=== PATIENT | female | born 1945 | race Caucasian/White ===

== ENCOUNTER → 2017-11-11 | Outpatient (CLI) | payer MEDICARE ==
[~2017-11-11] MED LIST: ALB18R INH; ASPI-1471 PO; AZI250 PO; BENZ-23 PO; BLAC20TA6 PO; CALC-649 PO; CETI-221 PO; CYAN25004 PO; CYCL10TA29 PO; DOXY-181 PO; FAMO-67 PO; GABA-549 PO; GUAI600T57 PO; HYDR-2966 PO; HYDR473S4 PO; IBU800 PO; LEVO-3 PO; LORA-629 PO; MULT-820 PO; ONDA8TAB94 PO; OXYC-865 PO; PEG4000S14 PO; PRAV20TA66 PO; [UNRECOGNIZED DRUG - CODE] PO; prednisone
--- NOTE | 2017-11-11 15:49 | RADIOLOGY IMAGING REPORT ---
[place] [facility] [place] NAME: Karin Stovall : 1945 MR: [id number] V: [id number] EXAM DATE: ORDERING PHYSICIAN: BISI RONQUILLO TECHNOLOGIST: Location: [facility] Patient: Karin Stovall : 1945 Visit/Account:[id number] Date of Sevice: 11/11/2017 EXAMINATION: CT Head without intravenous contrast HISTORY: Blurry vision. Headache. TECHNIQUE: Axial images were obtained from the skull base to the vertex without intravenous contrast . Sagittal and coronal reformatted images are also submitted. One of the following dose optimization techniques was utilized in the performance of this exam: Autom ated exposure control; adjustment of the mA and/or kV according to the patient's size; or use of an i terative reconstruction technique. Specific details can be referenced in the facility's radiology C T exam operational policy. COMPARISON: None. FINDINGS: Brain volume: Normal. Ventricles: Negative. Acute ischemic changes: None. Hemorrhage: None. Masses / edema: None. Garvin-white: Negative. White matter: Mild to moderate patchy hypodensity in the bilateral frontal white matter. Vessels: Negative. Extra-axial: Negative. Calvarium / skull base: Right TMJ arthritis. Otherwise negative. Visualized sinuses / orbits: Negative. IMPRESSION: 1. No acute intracranial abnormality. 2. Mild to moderate chronic white matter changes in the frontal lobes, nonspecific but most likely re presenting chronic microvascular ischemia. 3. Right TMJ arthritis. Report Dictated By: Jamel Robertson MD at 11/11/2017 3:38 PM Report E-Signed By: Jamel Robertson MD at 11/11/2017 3:45 PM WSN:[email or web address]
--- NOTE | 2017-11-11 16:03 | RADIOLOGY IMAGING REPORT ---
FACILITY: [facility] PATIENT NAME: Karin Stovall : 1945 MR: [id number] V: [id number] EXAM DATE: ORDERING PHYSICIAN: BISI RONQUILLO TECHNOLOGIST: Location: [facility] Patient: Karin Stovall : 1945 Visit/Account:[id number] Date of Sevice: 11/11/2017 Exam type: CERVICAL SPINE 2 OR 3 VIEW History: Neck pain, headache right side, and no injuries Comparison: None. Findings: There is mild disc space narrowing at C5-6 and C6-7 with small anterior osteophytes. There is no holli dence of acute fractures or subluxations in the cervical spine. No evidence of prevertebral soft tis harley swelling. IMPRESSION: 1. Mild spondylotic changes of the cervical spine. If patient's symptoms persist MR may be helpful Report Dictated By: Norma Chaudhary MD at 11/11/2017 3:57 PM Report E-Signed By: Norma Chaudhary MD at 11/11/2017 3:59 PM WSN:[email or web address]
== END ==
LOC: CT 10:38
PROVIDERS: ATTEND Family Medicine
DX: M47.892 Other spondylosis, cervical region (principal)
CPT/HCPCS: 70450; 72040

== ENCOUNTER → 2018-02-03 | Outpatient (CLI) | payer MEDICARE ==
--- NOTE | 2018-02-04 11:55 | RADIOLOGY IMAGING REPORT ---
FACILITY: [facility] [place] PATIENT NAME: HERMELINDO ROYAL : [id number] MR: [id number] V: [id number] EXAM DATE: [id number] ORDERING PHYSICIAN: BISI RONQUILLO TECHNOLOGIST: Tara Mojica RT(R)(CT) PROCEDURE:US LEFT BREAST COMPLETE COMPARISON:None. INDICATIONS:PALPABLE LEFT BREAST LUMP UPPER OUTER QUADRANT. A strong family history of breast cancer. FINDINGS: In the approximate 2 o'clock position Left breast 8cm from the nipple there is a heterogeneous solid mass with internal vascularity measuring approximately 1.7 x 1.6 x 2.2cm finding this concerning for malignancy an Ultrasound guided core biopsy is recommended. A small fatty replaced lymph node was incidentally noted in the Left axilla. DIAGNOSTIC CATEGORY 5--HIGHLY SUGGESTIVE OF MALIGNANCY. RECOMMENDATIONS: ULTRASOUND-GUIDED CORE BIOPSY: LEFT BREAST. IMPRESSION: BIRADS 5: Highly suggestive of malignancy. Ultrasound guided core biopsy of the solid heterogeneous mass 2 o'clock position of the Left breast recommended. Dictated by: Norma Chaudhary M.D. on 02/03/2018 at 16:10 Transcribed by: ROXANE on 02/04/2018 at 8:46 Approved by: Norma Chaudhary M.D. on 02/04/2018 at 11:54 [facility]
--- NOTE | 2018-02-04 11:55 | RADIOLOGY IMAGING REPORT ---
FACILITY: [facility] PATIENT NAME: HERMELINDO ROYAL : [id number] MR: [id number] V: [id number] EXAM DATE: [id number] ORDERING PHYSICIAN: BISI RONQUILLO TECHNOLOGIST: Hoda Rodriguez PROCEDURE:BILATERAL DIAGNOSTIC DIGITAL MAMMOGRAM WITH CAD ASSISTED INTERPRETATION & 3D TOMOSYNTHESIS COMPARISON:Prior mammograms 03/04/16, 02/25/16, 02/08/15. INDICATIONS:PALPABLE LEFT BREAST LUMP UPPER OUTER QUADRANT FINDINGS: There is predominant fatty replacement throughout the breasts. In the upper outer quadrant of the Left breast in the middle 1/3 there has been development of a dense lobular mass with irregular margins. Today's Left breast Ultrasound demonstrated a solid heterogeneous mass in the 2 o'clock position of the Left breast. Ultrasound guided core biopsy of this mass recommended. The remainder of the parenchymal pattern has remained stable throughout the breasts. DIAGNOSTIC CATEGORY 5--HIGHLY SUGGESTIVE OF MALIGNANCY. RECOMMENDATIONS: ULTRASOUND-GUIDED CORE BIOPSY: LEFT BREAST. IMPRESSION: BIRADS 5: Highly suggestive of malignancy. Ultrasound guided core biopsy of the solid heterogeneous mass 2 o'clock position Left breast recommended. These findings were discussed with the patient at the time of the examination. Dictated by: Norma Chaudhary M.D. on 02/03/2018 at 16:09 Transcribed by: ROXANE on 02/04/2018 at 8:39 Approved by: Norma Chaudhary M.D. on 02/04/2018 at 11:54 [facility]
== END ==
LOC: MAMO 01:17
PROVIDERS: ATTEND Family Medicine
DX: N63.21 Unspecified lump in the left breast, upper outer quadrant (principal)
CPT/HCPCS: 77062; 77066

== ENCOUNTER → 2018-02-08 | Outpatient (CLI) | payer MEDICARE ==
[2018-02-08 13:43] LABS: INR 0.98
--- NOTE | 2018-02-09 11:43 | RADIOLOGY IMAGING REPORT ---
[place] [facility] [place] NAME: HERMELINDO ROYAL : [id number] MR: [id number] V: [id number] EXAM DATE: ORDERING PHYSICIAN: BISI RONQUILLO TECHNOLOGIST: Tayla Davila RDMS(ABD,OBGYN,BR),RVT PROCEDURE: ULTRASOUND GUIDED BIOPSY LEFT BREAST COMPARISON: None. INDICATIONS: LEFT BREAST NEW MASS 2 O'CLOCK POSITION. FINDINGS: Informed consent was obtained. The patient's Left breast was prepped and draped in the usual sterile fashion. Local anesthesia was accomplished with 1% lidocaine. Utilizing sonographic guidance 3-12 gauge core biopsies were obtained through the solid irregular mass in the 2 o'clock position of the Left breast. The samples were placed in formalin and sent to the Laboratory for evaluation. The biopsy clip was placed in the biopsy site. The post biopsy mammogram did demonstrate the surgical clip to be within the dense mass in the 2 o'clock position of the Left breast. IMPRESSION: 1. Successful sonographically guided biopsy of the solid mass 2 o'clock position of the Left breast. Pathology results pending. Dictated by: Norma Chaudhary M.D. on 02/09/2018 at 8:35 Transcribed by: ROXANE on 02/09/2018 at 10:16 Approved by: Norma Chaudhary M.D. on 02/09/2018 at 11:42 [facility]
--- NOTE | 2018-02-09 11:43 | RADIOLOGY IMAGING REPORT ---
FACILITY: [facility] PATIENT NAME: HERMELINDO ROYAL : [id number] MR: [id number] V: [id number] EXAM DATE: ORDERING PHYSICIAN: BISI RONQUILLO TECHNOLOGIST: Tayla Davila RDMS(ABD,OBGYN,BR),RVT PROCEDURE: ULTRASOUND GUIDED BIOPSY LEFT BREAST COMPARISON: None. INDICATIONS: LEFT BREAST NEW MASS 2 O'CLOCK POSITION. FINDINGS: Informed consent was obtained. The patient's Left breast was prepped and draped in the usual sterile fashion. Local anesthesia was accomplished with 1% lidocaine. Utilizing sonographic guidance 3-12 gauge core biopsies were obtained through the solid irregular mass in the 2 o'clock position of the Left breast. The samples were placed in formalin and sent to the Laboratory for evaluation. The biopsy clip was placed in the biopsy site. The post biopsy mammogram did demonstrate the surgical clip to be within the dense mass in the 2 o'clock position of the Left breast. IMPRESSION: 1. Successful sonographically guided biopsy of the solid mass 2 o'clock position of the Left breast. Pathology results pending. Dictated by: Norma Chaudhary M.D. on 02/09/2018 at 8:35 Transcribed by: ROXANE on 02/09/2018 at 10:16 Approved by: Norma Chaudhary M.D. on 02/09/2018 at 11:42 [facility]
== END ==
LOC: US 01:33
PROVIDERS: ATTEND Family Medicine
DX: Z01.812 Encounter for preprocedural laboratory examination (principal); N63.21 Unspecified lump in the left breast, upper outer quadrant
CPT/HCPCS: 19083; 36415; 77061; 77065; 85610; 88305; 88344

== ENCOUNTER 2018-02-18 14:00 | Outpatient (RCR) | payer MEDICARE ==
--- NOTE | 2018-02-02 18:06 | PT INITIAL EVALUATION ---
MEDICAL DIAGNOSIS: Vertigo TREATMENT DIAGNOSIS: R posterior canal BPPV, altered gait and balance DATE OF ONSET: 01/02/18 SUBJECTIVE: Karin Stovall presents to PT for spinning sensation with laying down , head back or head low, from the last month or so. She'd finished antibiotics three days later for a mouth infection. Cervical ex-rays reveal L5/ 6/7 disc narrowing. Karin wonder if this is the source of her vertigo. She isn 't doing housework, ambulating in the community as before due to this vertigo. 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 at night, thyroid disorder. OCCUPATION: Retired. OBJECTIVE: Posture: Midline head (small oscillation tremors), mild forward head posture. ROM: AROM cervical spine rotation B 75%, %, extension full with extension creating R torsional/upbeating nystagmus 2 beats. Strength: LE's 5- to 5/5. Special Tests: Positive R Hallpike for R torsional upbeating nystagmus, extinguishes in 8 seconds. Quads, Achilles DTR's 2/3. Gait: Functional Gait assessment with a 47% impairment. Karin weaves L and R > 12" form line of progression during gait with head turning, and mildly with head up/down. She has immediate balance loss with tandem gait, weaves L during gait with eyes closed. She turns in <3 seconds with balance control. Balance: Increased postural sway with standing narrow MC, with eyes closed. Single leg stand with immediate balance loss. Ankle proprioception WNL B. ASSESSMENT: Karin Stovall presents with R posterior canal BPPV. She did well with Rosalee's maneuver to reposition otoliths. She's a high fall risk due to her reduced balance, altered gait, and need to re-integrate her vestibular- ocular reflex. Short Term Goals 2 weeks: Karin performs reaching, looking up with head back motion without vertigo. 6 weeks: Karin ambulates with normal line of progression with head movement, ambulates with corrective balance reactions on uneven surfaces. Patient's Goals No vertigo and reduce fall risk with ambulation on uneven surfaces. PLAN: Patient to be seen for Stretching Neuromuscular Re-ed Gait Trg/Balance Trg Home Exercise Program 2x/Week for 6-8 weeks Thank you for this referral. If you have any questions, comments, or concerns about this report or plan, please contact me at . [facility]
--- NOTE | 2018-02-24 17:00 | PT PLAN OF CARE ---
Physician: Dr. Maegan Serrano Patient is being seen: 2x/week Therapist: Alpa Martinez, PT Medical Diagnosis: Vertigo Treatment Diagnosis: R posterior canal BPPV, altered gait and balance Date of Onset: 01/02/18 Date of Initial Evaluation: 02/02/18 Date patient was last seen: 02/18/18 Number of treatments: 4 Number of cancellations/No shows: 0 INTERVENTIONS: Stretching Neuromuscular Re-ed Gait Trg/Balance Trg Home Exercise Program GOALS: 2 weeks: Karin performs reaching, looking up with head back motion without vertigo. partially met 6 weeks: Karin ambulates with normal line of progression with head movement, ambulates with corrective balance reactions on uneven surfaces. partially met PATIENT'S GOAL: No vertigo (partially met) and reduce fall risk with ambulation on uneven surfaces (not met). Patient Compliance: Excellent Prognosis: Excellent Reasons for discontinuing therapy: S: Karin with have her breast cancer surgery tomorrow and needs to stop PT. She had one episode of vertigo with looking up between 02/16/18 to 02/18/18. O: Gait had improved with mild weaving with head motion, but discordant steps. She'd had less vertigo with her Hallpike maneuver on 02/16/18. A/P: Karin Stovall was improving with her vertigo. Her cancer issues are more important and so I will discharge vertigo PT. If I can be of help with Karin's PT later, I would be happy to work with her. Thank you. KATHERINE
[2018-02-25] MEDS ORDERED: DOCU-416 PO (16:27)
[2018-04-06] MEDS ORDERED: DOCU-416 PO (11:46)
[2018-04-06] MEDS ORDERED: OXYC-854 PO (11:46)
[2018-04-14] MEDS ORDERED: LEVO-85 PO (17:51)
[2018-04-23] MEDS ORDERED: GING1POW MC (12:50)
== END 2018-05-03 ==
LOC: PT 14:00
PROVIDERS: ATTEND Family Medicine
DX: H81.12 Benign paroxysmal vertigo, left ear (principal); G25.0 Essential tremor; E07.9 Disorder of thyroid, unspecified; Z96.652 Presence of left artificial knee joint

== ENCOUNTER → 2018-02-22 | Outpatient (CLI) | payer MEDICARE ==
[2018-02-22 10:37] LABS: PLATELET COUNT, AUTOMATED 164 K/uL (150-450)
--- NOTE | 2018-02-22 10:37 | EKG ---
FACILITY: [facility] [place] PATIENT NAME: HERMELINDO ROYAL : [id number] MR: [id number] V: [id number] EXAM DATE: ORDERING PHYSICIAN: BISI RONQUILLO TECHNOLOGIST: MARY Reid Reason : PRE-OP Blood Pressure : / mmHG Vent. Rate : 051 BPM Atrial Rate : 051 BPM P-R Int : 134 ms QRS Dur : 078 ms QT Int : 426 ms P-R-T Axes : 018 021 041 degrees QTc Int : 392 ms Sinus bradycardia Low voltage QRS Borderline ECG No previous ECGs available Referred By: BISI RONQUILLO Confirmed By:
--- NOTE | 2018-02-22 11:58 | RADIOLOGY IMAGING REPORT ---
FACILITY: [facility] PATIENT NAME: Karin Stovall : 1945 MR: [id number] V: [id number] EXAM DATE: ORDERING PHYSICIAN: BISI RONQUILLO TECHNOLOGIST: Location: [facility] [place] Patient: Karin Stovall : 1945 Visit/Account:[id number] Date of Sevice: 02/22/2018 CHEST PA AND LAT Indication: Hypoxemia, preoperative Comparison: Chest x-ray 12/24/2016 Findings: Lungs: There is mild hyperinflation and flattening the diaphragms. The lungs are clear. Mediastinum/pulmonary vasculature: Heart size and pulmonary vasculature are normal. Bones/soft tissues: Normal. IMPRESSION: 1. Findings consistent with mild COPD. 2. Clear lungs. Report Dictated By: Winston Dodge at 02/22/2018 11:53 AM Report E-Signed By: Winston Dodge at 02/22/2018 11:54 AM WSN:[id number]
== END ==
LOC: RAD 10:15
PROVIDERS: ATTEND Family Medicine
DX: J44.9 Chronic obstructive pulmonary disease, unspecified (principal); N63.20 Unspecified lump in the left breast, unspecified quadrant; E78.5 Hyperlipidemia, unspecified; E03.9 Hypothyroidism, unspecified; R73.01 Impaired fasting glucose; R09.02 Hypoxemia; R00.1 Bradycardia, unspecified
CPT/HCPCS: 36415; 71046; 82310; 82374; 82435; 82565; 82947; 83036; 84132; 84295; 84443; 84520; 85025; 93005

== ENCOUNTER 2018-02-25 00:21 | Day surgery (SDC) | payer MEDICARE ==
[~2018-02-25] VITALS: Ht 157.5 cm; Wt 104.8 kg
[2018-02-25] MEDS ORDERED: LIDOCAINE/PRILOCAINE 5 GM TUBE TP ONE (09:30)
[2018-02-25 10:00] VITALS: BP 147/110
[2018-02-25] MEDS ORDERED: FAMOTIDINE 20 MG TAB PO ONE (11:00)
[2018-02-25] MEDS ORDERED: NORMOSOL R SOLN(*) 1000 ML BAG 1,000 ML IV PRN (11:00)
[2018-02-25] MEDS ORDERED: LIDOCAINE/SOD BICARB 8.4% SYR ID ONE (11:00)
[2018-02-25] MEDS ORDERED: MIDAZOLAM 2 MG/2 ML VIAL IVP PRN (11:00)
[2018-02-25] MEDS ORDERED: MIDAZOLAM 2 MG/2 ML VIAL ONE (11:28)
[2018-02-25] MEDS ORDERED: LIDOCAINE MPF 1% 5 ML VIAL ONE (11:28)
[2018-02-25] MEDS ORDERED: ONDANSETRON 4 MG/2 ML VIAL ONE (11:28)
[2018-02-25] MEDS ORDERED: DEXAMETHASONE SOD PHOS 10MG/ML ONE (11:28)
[2018-02-25] MEDS ORDERED: PROPOFOL EMUL(*) 10MG/ML 20 ML 20 ML ONE (11:28)
[2018-02-25] MEDS ORDERED: fentaNYL CITR 100 MCG/2 ML AMP ONE ×2 (11:28→16:21)
[2018-02-25] MEDS ORDERED: METOPROLOL TART 5 MG/5 ML VIAL ONE (11:34)
[2018-02-25] MEDS ORDERED: SUGAMMADEX SOD 500 MG/5 ML SDV ONE (11:58)
[2018-02-25] MEDS ORDERED: ROPIVACAINE 0.5% 20 ML VIAL ONE (12:35)
[2018-02-25] MEDS ORDERED: ISOSULFAN BLUE 1% SLN 50MG/5ML ONE (12:35)
[2018-02-25] MEDS ORDERED: LIDOCAINE 2% JELLY 5 ML TUBE ONE (13:03)
--- NOTE | 2018-02-25 13:07 | RADIOLOGY IMAGING REPORT ---
FACILITY: [facility] PATIENT NAME: Karin Stovall : 1945 MR: [id number] V: [id number] EXAM DATE: ORDERING PHYSICIAN: KIRBY SUTTON TECHNOLOGIST: Location: [facility] [place] Patient: Karin Stovall : 1945 Visit/Account:[id number] Date of Sevice: 02/25/2018 EXAMINATION: Left breast sentinel node injection with imaging 02/25/2018 7:29 AM HISTORY: L. axillary node exc.. Biopsy-proven breast cancer. COMPARISON: Ultrasound guided left breast biopsy 02/08/2018 FINDINGS: Informed consent solid biopsy as per the surgery was obtained. I briefly discussed somewh at injection with patient. She had received some preprocedural EMLA cream. The periareolar area was prepped with ChloraPrep. Utilizing a tuberculin syringe 529.0 uCi of technetium 99m Lymphoseek was injected intradermally divided roughly equally into 4 equal portions along the areolar edge at the 12 :00, 3:00, 6:00, and 9:00 positions. Subsequent imaging demonstrated collection of tracer in an axillary lymph node which was marked at th e skin prior to surgery. IMPRESSION: Left breast sentinel node injection performed. Report Dictated By: Winston King MD at 02/25/2018 1:01 PM Report E-Signed By: Winston King MD at 02/25/2018 1:03 PM WSN:[email or web address]
[2018-02-25] MEDS ORDERED: DOCU-416 PO (16:27)
--- NOTE | 2018-02-25 16:32 | Short(Outpt) Discharge Summary ---
Discharge Summary Reason for Hosp/Final Diag: (1) Breast cancer of upper-outer quadrant of left female breast Status: Chronic Hospital Course & Plan: Left breast wide excision with left axillary SLN bx completed without problems. Departure Discharge to: Home, Self Care Discharge Instructions Home Meds Active Scripts Docusate Sodium (COLACE) 100 Mg Capsule, 1 CAP PO BID, #30 CAP 0 Refills TAKE WITH A FULL GLASS OF WATER Prov:KIRBY SUTTON MD 02/25/18 Cyclobenzaprine Hcl (CYCLOBENZAPRINE HCL) 10 Mg Tablet, 10 MG PO TID, #20 TAB TAKE 1 TABLET BY MOUTH THREE TIMES A DAY Prov:KIRBY CHÁVEZ MD 10/27/13 Oxycodone Hcl/Acetaminophen (PERCOCET 5-325 MG TABLET) 1 Each Tablet, 1 EACH PO Q6H, #15 TAB Prov:KIRBY CHÁVEZ MD 10/27/13 Reported Medications Cyclobenzaprine Hcl (CYCLOBENZAPRINE HCL) 10 Mg Tablet, 10 MG PO TID, #9 TAB 02/04/17 Levothyroxine Sodium (LEVOTHYROXINE SODIUM) 100 Mcg Tablet, 100 MCG PO QDAY, TAB 02/04/17 Calcium Carbonate/Vitamin D3 (CALCIUM 600 + VIT D 200 TABLET) 1 Each Tablet, 1 EACH PO QDAY 01/28/17 Hydrochlorothiazide (HYDROCHLOROTHIAZIDE) 25 Mg Tablet, 1 TAB PO QDAY, TAB 01/28/17 Famotidine (FAMOTIDINE) 20 Mg Tablet, 20 MG PO QDAY, TAB 01/28/17 Pravastatin Sodium (PRAVASTATIN SODIUM) 20 Mg Tablet, 20 MG PO QDAY 01/28/17 Cyanocobalamin (Vitamin B-12) (Vitamin B12) 2,500 Mcg Tablet, 1 TAB PO QDAY 01/28/17 Ibuprofen (Motrin) 800 Mg Tab, 800 MG PO Q8H, 0 Refills NEEDED FOR PAINS/ACHES/FEVER 11/06/07 Multivitamins (Multivitamin) 1 Tab Tablet, 1 TAB PO DAILY 11/06/07 Discontinued Reported Medications Black Cohosh Root (MENOPAUSE SUPPORT) 20 Mg Tablet, PO 02/04/17 Cetirizine Hcl (ALLERGY) 10 Mg Tablet, 10 MG PO QDAY 01/28/17 Follow up Referrals: General Surgery - 03/09/18 @ Surgery, General with Kirby Sutton Md You have a follow up appointment scheduled with Dr. Sutton on 03/09/18, at 4:45pm. Diet: Regular Activity: As Tolerated Special Instructions: Wear a supportive bra at all times for the 1st 2 weeks after surgery. Remove the white surgical dressings on 02/27/18, then you can shower. After showering, leave the incisions open to air but leave the steristrips in place until they fall off on their own. Do not immerse the incisions for 2 weeks. Problem Qualifiers (1) Breast cancer of upper-outer quadrant of left female breast: Estrogen receptor status: positive Qualified Codes: C50.412 - Malignant neoplasm of upper-outer quadrant of left female breast; Z17.0 - Estrogen receptor positive status [ER+] KIRBY SUTTON MD Feb 25, 2018 16:32
--- NOTE | 2018-02-25 16:47 | Post Operative Progress Note ---
Post Operative Progress Note Date: Feb 25, 2018 Time: 16:33 Surgeon: Allison Dictation number: [id number] Anesthesia: LMA by Dr. Pereyra Pre-Op Diagnosis: LUQ breast cancer Post-Op Diagnosis: YVONNE Findings: C/W dx Procedure(s): Left breast cancer wide excision Left axillary sentinal lymph node excision Specimen Removed:(May be N/A): 1) SLN #1, 2) SLN #2, 3) SLN #3, 4) SLN #4, 5) SLN #5, 6) inferior margin, 7) superior margin, 8) medial margin, 9) lateral margin, 10) deep margin, 11) superficial margin (all sent for frozen section and permanent), 12) left breast cancer sent in formalyn for permanent analysis and Oncotype DX testing Complications: None Fluids: See anesthesia record Estimated Blood Loss: Minimal Date OP Note Dictated: Feb 25, 2018 Time OP Note Dictated: 16:36 KIRBY SUTTON MD Feb 25, 2018 16:47
[2018-02-25 17:30] VITALS: BP 118/74
[2018-02-25 17:48] VITALS: BP 138/88
--- NOTE | 2018-02-25 18:55 | OPERATIVE REPORT 1 ---
EVENT DATE: February 25, 2018 SURGEON: King Cooper MD ANESTHESIOLOGIST: Phillip Pereyra MD ANESTHESIA: LMA. PREOPERATIVE DIAGNOSIS Left breast cancer. POSTOPERATIVE DIAGNOSIS Left breast cancer. PROCEDURES PERFORMED 1. Left breast cancer wide excision. 2. Left axillary sentinel lymph node excision. COMPLICATIONS None. CONDITION Stable. BLOOD LOSS Minimal. INDICATIONS This is a 72-year-old female who was referred to me after recently being diagnosed with a palpable left breast cancer in the upper-outer quadrant. There was no obvious lymphadenopathy, and the lesion was easily palpable. After discussing her options of mastectomy versus breast conservation therapy, she wished to proceed with breast conservation therapy. She was then scheduled for wide excision of the left upper-outer quadrant breast cancer and left axillary sentinel lymph node excision. DESCRIPTION OF PROCEDURE The patient was brought to the operating room and placed supine on the operating table. LMA anesthesia was administered, and her left breast, axilla, and arm were prepped and draped in a sterile fashion. A timeout was completed. I used the gamma probe and detected the gamma output from her left axilla. I marked the skin in this area and anesthetized the skin with 0.5% ropivacaine plain. I made an axillary incision and dissected the dermis and the subcutaneous fat. I dissected all the way down to the axillary contents using the gamma probe as a guide and identified the sentinel nodes based on the bluish color from the Lymphazurin injection preop and the gamma output after having been injected with Technetium preop. Ultimately, I removed five sentinel lymph nodes, and they were each sent separately fresh to Pathology for frozen section analysis. When this was completed, there was no further gamma output from her axilla. I packed her axilla with moist gauze and then turned my attention to her left breast while I awaited the results of the frozen section from the sentinel lymph nodes. The lesion was easily palpable, and so I marked the skin parallel with the skin lines and made a curvilinear incision overlying the mass and dissected through the dermis and into the breast tissue. I then simply just dissected around while I palpated the mass, keeping a wide margin all the way around it and dissected using electrocautery all the way around it. I removed it from the wound and marked it with a short silk stitch on the superior edge and a long silk stitch on the lateral edge. It was placed in formalin to be sent to Pathology. I then removed tissue from the cavity on all sides, and these were all sent separately for frozen section to confirm negative margins. A lateral margin, a medial margin, an inferior margin, a superior margin, a deep margin, and a superficial margin were all removed and sent separately. I also had inspected the actual wide excision specimen, and the closest margin appeared to be the deep margin, so I walked over to Pathology and explained the orientation of all these margins and had them pay special attention to the deep margin. The rest of the margins on the primary specimen seemed to have a nice casing of fat around them, whereas the deep also had some fat around it, but it was a thinner rim than the rest of the margins. Ultimately, I was able to get all of the margin results back, and they were negative for evidence of cancer in the margins. I irrigated and dried both wounds and then closed the subcutaneous pocket with running 3-0 Vicryl sutures in four layers on both the axilla and the breast, and then the skin was closed with interrupted 3-0 Vicryl deep dermal sutures and 4-0 Monocryl running subcuticular sutures. Her skin was cleaned and dried, and Steri-Strips were applied, followed by sterile surgical dressings. The patient was then awakened and LMA removed. She was transferred to the recovery room in stable condition having tolerated the procedure without any apparent problems. KATHERINE
== END 2018-02-25 17:20 | disposition home or self-care (01) ==
LOC: OR 00:21
PROVIDERS: ATTEND Surgery
DX: C50.412 Malignant neoplasm of upper-outer quadrant of left female breast (principal)
CPT/HCPCS: 19120; 38500; 78195; 88305; 88331; 88332; 88344; A9270; A9520; J1100; J2001; J2405; J2704; J2795; J3010; Q9968; J2250; J3490

== ENCOUNTER 2018-04-06 02:08 | Day surgery (SDC) | payer MEDICARE ==
[~2018-04-06] VITALS: Ht 154.9 cm; Wt 102.1 kg
[~2018-04-06 02:08] MED LIST changes: +DOCU-416 PO
[2018-04-06] MEDS ORDERED: MIDAZOLAM 2 MG/2 ML VIAL IVP PRN (09:10)
[2018-04-06] MEDS ORDERED: FAMOTIDINE 20 MG TAB PO ONE (09:10)
[2018-04-06] MEDS ORDERED: NORMOSOL R SOLN(*) 1000 ML BAG 1,000 ML IV PRN (09:10)
[2018-04-06] MEDS ORDERED: LIDOCAINE/SOD BICARB 8.4% SYR ID ONE (09:10)
[2018-04-06] MEDS ORDERED: ceFAZolin(*) 2GM/D5W 50ML 50 ML IVPB ONE (09:10)
[2018-04-06] MEDS ORDERED: HEPARIN SOD LCK FLSH 100 UN/ML ONE (09:57)
[2018-04-06] MEDS ORDERED: NS(*) 0.9% 10 ML VIAL 20 ML ONE (09:57)
[2018-04-06] MEDS ORDERED: ROPIVACAINE 0.5% 20 ML VIAL ONE (09:57)
[2018-04-06 09:58] VITALS: BP 132/95
[2018-04-06] MEDS ORDERED: fentaNYL CITR 100 MCG/2 ML AMP ONE ×2 (10:24→12:20)
[2018-04-06] MEDS ORDERED: LIDOCAINE 2% IV 100 MG/5ML SYR ONE (10:24)
[2018-04-06] MEDS ORDERED: PROPOFOL EMUL(*) 10MG/ML 20 ML 20 ML ONE (10:25)
[2018-04-06] MEDS ORDERED: DEXAMETHASONE SOD 4 MG/ML VIAL ONE (11:00)
[2018-04-06] MEDS ORDERED: ONDANSETRON 4 MG/2 ML VIAL ONE (11:05)
[2018-04-06] MEDS ORDERED: DOCU-416 PO (11:46)
[2018-04-06] MEDS ORDERED: OXYC-854 PO (11:46)
--- NOTE | 2018-04-06 11:48 | Short(Outpt) Discharge Summary ---
Discharge Summary Reason for Hosp/Final Diag: (1) Stage II breast cancer in female Status: Chronic Hospital Course & Plan: Right IJ Power Port placement completed without pro blems. Departure Discharge to: Home, Self Care Discharge Instructions Home Meds Active Scripts Docusate Sodium (COLACE) 100 Mg Capsule, 1 CAP PO BID, #30 CAP 0 Refills TAKE WITH A FULL GLASS OF WATER Prov:KIRBY SUTTON MD 04/06/18 Oxycodone Hcl/Acet 5/325 Mg (ENDOCET 5-325 TABLET) 1 Each Tablet, 1 TAB PO Q4H PRN for PAIN, #10 TAB 0 Refills Prov:KIRBY SUTTON MD 04/06/18 Cyclobenzaprine Hcl (CYCLOBENZAPRINE HCL) 10 Mg Tablet, 10 MG PO TID, #20 TAB TAKE 1 TABLET BY MOUTH THREE TIMES A DAY Prov:KIRBY CHÁVEZ MD 10/27/13 Oxycodone Hcl/Acetaminophen (PERCOCET 5-325 MG TABLET) 1 Each Tablet, 1 EACH PO Q6H, #15 TAB Prov:KIRBY CHÁVEZ MD 10/27/13 Reported Medications Levothyroxine Sodium (LEVOTHYROXINE SODIUM) 100 Mcg Tablet, 100 MCG PO QDAY, TAB 02/04/17 Calcium Carbonate/Vitamin D3 (CALCIUM 600 + VIT D 200 TABLET) 1 Each Tablet, 1 EACH PO QDAY 01/28/17 Pravastatin Sodium (PRAVASTATIN SODIUM) 20 Mg Tablet, 20 MG PO QDAY 01/28/17 Cyanocobalamin (Vitamin B-12) (Vitamin B12) 2,500 Mcg Tablet, 1 TAB PO QDAY 01/28/17 Multivitamins (Multivitamin) 1 Tab Tablet, 1 TAB PO DAILY 11/06/07 Discontinued Reported Medications Cyclobenzaprine Hcl (CYCLOBENZAPRINE HCL) 10 Mg Tablet, 10 MG PO TID, #9 TAB 02/04/17 Hydrochlorothiazide (HYDROCHLOROTHIAZIDE) 25 Mg Tablet, 1 TAB PO QDAY, TAB 01/28/17 Famotidine (FAMOTIDINE) 20 Mg Tablet, 20 MG PO QDAY, TAB 01/28/17 Ibuprofen (Motrin) 800 Mg Tab, 800 MG PO Q8H, 0 Refills NEEDED FOR PAINS/ACHES/FEVER 11/06/07 Discontinued Scripts Docusate Sodium (COLACE) 100 Mg Capsule, 1 CAP PO BID, #30 CAP 0 Refills TAKE WITH A FULL GLASS OF WATER Prov:KIRBY SUTTON MD 02/25/18 Diet: Regular Activity: As Tolerated Special Instructions: Leave the incisions open to air but leave the steristrips in place until they fall off on their own. You may shower starting on , 04/08/18, but don't immerse the incisions for 2 weeks. KIRBY SUTTON MD Apr 06, 2018 11:48
--- NOTE | 2018-04-06 11:58 | Post Operative Progress Note ---
Post Operative Progress Note Date: Apr 06, 2018 Time: 11:49 Surgeon: Allison Dictation number: [id number] Anesthesia: LMA by Dr. Lemos Pre-Op Diagnosis: Left breast cancer Post-Op Diagnosis: YVONNE Findings: None Procedure(s): Right IJ Power Port placement Specimen Removed:(May be N/A): None Complications: None Fluids: See anesthesia record Estimated Blood Loss: Minimal Date OP Note Dictated: Apr 06, 2018 Time OP Note Dictated: 11:49 KIRBY SUTTON MD Apr 06, 2018 11:58
[2018-04-06 12:50] VITALS: BP 118/80
--- NOTE | 2018-04-06 13:22 | RADIOLOGY IMAGING REPORT ---
FACILITY: [facility] [place] PATIENT NAME: Karin Stovall : 1945 MR: [id number] V: [id number] EXAM DATE: ORDERING PHYSICIAN: KIRBY SUTTON TECHNOLOGIST: Location: [facility] Patient: Karin Stovall : 1945 Visit/Account:[id number] Date of Sevice: 04/06/2018 Examination: Right jjqch-mzgkpmnniohfpi-niso placement HISTORY: Port placement for chemotherapy. FINDINGS: Single intraoperative fluoroscopic image is obtained during right internal jugular port juventino cement. 36.7 seconds of fluoroscopy time was utilized. IMPRESSION: 1. Ongoing right internal jugular port catheter placement. Report Dictated By: Zay Saravia at 04/06/2018 1:17 PM Report E-Signed By: Zay Saravia at 04/06/2018 1:18 PM WSN:[email or web address]
[2018-04-06 13:23] VITALS: BP 113/74
--- NOTE | 2018-04-06 13:47 | RADIOLOGY IMAGING REPORT ---
FACILITY: [facility] PATIENT NAME: Karin Stovall : 1945 MR: [id number] V: [id number] EXAM DATE: ORDERING PHYSICIAN: KIRBY SUTTON TECHNOLOGIST: Location: [facility] Patient: Karin Stovall : 1945 Visit/Account:[id number] Date of Sevice: 04/06/2018 CHEST SINGLE AP Indication: Port placement. Comparison: 02/22/2018 Findings: A new right internal jugular port catheter has been placed. Tip of the catheter overlies the expecte d location of the superior vena cava. Lung volumes are small with bibasilar atelectasis and central vascular crowding. No pneumothorax or pleural effusion. No focal infiltrate. Heart size appears enlarged which may reflect the small lung volumes and portable technique. IMPRESSION: 1. New right internal jugular port catheter without pneumothorax. 2. Small lung volumes with bibasilar atelectasis. Report Dictated By: Zay Saravia at 04/06/2018 1:40 PM Report E-Signed By: Zay Saravia at 04/06/2018 1:43 PM WSN:[email or web address]
[2018-04-06 14:07] VITALS: BP 118/77
[2018-04-06 14:08] VITALS: BP 119/76
--- NOTE | 2018-04-06 17:05 | OPERATIVE REPORT 1 ---
EVENT DATE: April 06, 2018 SURGEON: King Cooper MD ANESTHESIOLOGIST: Heriberto Lemos MD ANESTHESIA: LMA. PREOPERATIVE DIAGNOSIS Left breast cancer. POSTOPERATIVE DIAGNOSIS Left breast cancer. PROCEDURE PERFORMED Right internal jugular PowerPort placement. COMPLICATIONS None. CONDITION Stable. BLOOD LOSS Minimal. INDICATIONS A 72-year-old female who several weeks ago underwent left breast conservation therapy for a left breast cancer. Two lymph nodes were found to contain cancer, and her recurrence score was 41 on Oncotype DX. She is seeing an oncologist who would like to do chemotherapy. They have requested a PowerPort to be placed to facilitate this. DESCRIPTION OF PROCEDURE The patient was brought to the operating room and placed supine on the operating table. LMA anesthesia was administered, and her right chin, neck, shoulder, and chest were prepped and draped in a sterile fashion. A timeout was completed. With her in Trendelenburg, we used the ultrasound to identify the right internal jugular vein. We used the access needle and accessed it with one attempt. I threaded the wire through the needle, then removed the needle, and then used the C-arm fluoroscope and determined that the wire was in the SVC. I then anesthetized the skin in her neck as well as the right infraclavicular skin and then made a stab incision in the neck where the wire entered, and then a transverse incision in the infraclavicular skin. I then dissected through the dermis and subcutaneous fat and then created a pocket caudad to the incision. I made sure this was hemostatic. I then used the tunneler and pulled the catheter from the pocket in the infraclavicular area up into the stab incision of the neck, then removed the tunneler, and then with the patient in Trendelenburg, threaded the dilator and sheath over the wire and removed the dilator and wire. I then threaded the catheter through the sheath and removed the sheath. I then used the C-arm fluoroscope to pull the catheter back so the tip was in the SVC just above the right atrium, then cut the catheter to length. I placed the port on the catheter and locked it in place with the locking device and then sutured the port to the underlying muscle fascia with 2-0 nylon at the corners. I then aspirated blood through the port and catheter, then flushed it first with 10 mL of normal saline, and then I flushed it with 5 mL of 100 units/mL of heparinized saline for a total of 500 units of heparin. It aspirated and flushed with no problems. I then took more C-arm images and confirmed it was in a good position with no kinks or twists, and that looked good. I then closed the stab incision in the neck with a single 3-0 chromic suture, and the infraclavicular incision was closed with 3-0 Vicryl interrupted deep dermal sutures and 4-0 Monocryl running subcuticular suture. Skin was cleaned, dried, and Steri-Strips were applied. The patient was awakened, LMA was removed, and she was transported to the recovery room in stable condition having tolerated the procedure without any apparent problems. A portable chest x-ray is now pending. KATHERINE
== END 2018-04-06 12:50 | disposition home or self-care (01) ==
LOC: OR 02:08
PROVIDERS: ATTEND Surgery
DX: C50.912 Malignant neoplasm of unspecified site of left female breast (principal)
CPT/HCPCS: 36561; 71045; 77001; A9270; C1788; J1100; J1642; J2001; J2250; J2405; J2704; J2795; J3010; J0690

== ENCOUNTER 2018-04-13 13:53 | Outpatient (RCR) | payer MEDICARE ==
[~2018-04-13 13:53] MED LIST changes: +OXYC-854 PO
--- NOTE | 2018-04-13 20:55 | ONCOLOGY CONSULTATION ---
EVENT DATE: April 13, 2018 DIAGNOSIS Infiltrating ductal carcinoma of the left breast, upper-outer quadrant, status post lumpectomy and sentinel lymph node procedure. Initial surgery performed on February 25, 2018. Tumor mass measures 2 x 2 x 2 cm. Close, but negative margin. Tumor is metastatic to two of five lymph nodes. Tumor is strongly estrogen receptor positive 97%, progesterone receptor negative, HER-2/josiah 1+. Tumor is grade 2, stage pathologic T2c/borderline [id number]. HISTORY This is my first encounter with the patient today. She is seen at the request of her oncology team to discuss the radiation therapy details which will take place after she completes systemic chemotherapy. The patient states that she felt a mass in her left breast which led her to subsequent evaluation by Maegan Serrano DO, with referral to Dr. Cooper. Patient underwent a mammogram which revealed a large, dense mass in the upper-outer quadrant of the left breast. Lesion was highly suspicious, and the patient was referred for surgical excision. The original surgery date was February 25, 2018. A mass was detected at 2 x 2 x 2 cm on the final pathology. Margins appeared to be adequate. Tumor was 3 mm away from the deep surgical margin. This was grade 2 malignancy. Two of five lymph nodes were positive for invasive ductal carcinoma. In one lymph node, there was an area of macrometastasis measuring 3 mm. No postoperative complications. Patient has experienced minor seroma, and she is presently receiving some physical therapy treatment for prominent superficial vein cord. This appears to be responding to treatment well. She denies any persistent headaches or new bone pain. There is a positive family history in her mother who had breast cancer at age 68. Patient has started AC chemotherapy directed by Dr. Jarrett. She elected to see me early so she could review the radiation oncology plan details today with family. MEDICATIONS 1. Hydrochlorothiazide. 2. Levothyroxine. 3. Pepcid. 4. Colace. 5. Pravastatin. PAST MEDICAL HISTORY 1. Essential tremor. 2. Hypercholesterolemia. 3. Breast cancer with history listed above. 4. Hypothyroidism. SURGICAL HISTORY 1. Left breast lumpectomy and axillary lymph node sampling. 2. Left knee replacement. 3. Prior hysterectomy. FAMILY HISTORY Notable for mother with breast cancer at age 68. SOCIAL HISTORY Previous smoking one pack per day for 16 years. She has quit smoking for the last 50 years. ALLERGIES PHENAZOLPYRIDINE. REVIEW OF SYSTEMS Notable for multiple abdominal surgeries for benign tumors, hysterectomy in 1985, left knee replacement in 2010, wrist surgery in 2006. PHYSICAL EXAMINATION GENERAL: Pleasant, 73-year-old female with a large build. VITAL SIGNS: Listed in EMR and stable. LYMPH NODES: No palpable peripheral lymphadenopathy. LUNGS: Clear to auscultation bilaterally. HEART: Sounds were regular. No audible murmur. CHEST: Well-healed curvilinear incision noted over the left breast in the upper-outer quadrant. Axillary incision is nicely healed as well. Excellent cosmetic result. No suspicious mass. Small seroma is present. Right breast is unremarkable. EXTREMITIES: No palpable venous cord today. ABDOMEN: Soft. No gross organomegaly. NEUROLOGIC: Intact. IMPRESSION This is a pleasant, 73-year-old female with a recently diagnosed invasive ductal carcinoma of the left breast, grade 2. Her original presenting mammogram was reviewed with the patient and her family as well as the pathology findings. PLAN The plan is to proceed with systemic chemotherapy directed by Dr. Jarrett, which would be followed by left breast radiation therapy with coverage of regional lymph nodes as well based on the radiographic findings at that time. At the patient's request, I detailed the radiation course which utilizes CT planning and tangential radiation means. Side effects include temporary erythema reaction and some minor fatigue in general. In patients with large breasts, it is recommended that a standard fractionation course be selected to minimize skin reaction risks and late effects. The first phase would be completed in five weeks with the second phase or the boost phase of the radiation completed in additional 8 fractions. I generally have seen patients approximately three to four weeks after chemotherapy is complete and start the radiation course the week after. The patient would have a combined diagnostic and treatment planning CT scan just prior to starting the radiation program as the meyers could be modified based on radiographic findings at that time. She has undergone a recent chest x-ray which was clear, and she appears to have local regional cancer only at this time with a very good overall prognosis with appropriate therapy. All questions were answered to the patient's satisfaction, and she would like to proceed with the above plan. She is also aware of the fact that she will need to go on to tamoxifen or AI after the chemotherapy course is completed. Detail of the appropriate literature has been completed today and the therapeutic rationale for the above recommendations. She appeared quite satisfied with the answers and is going to proceed. KATHERINE
[2018-04-14] MEDS ORDERED: LEVO-85 PO (17:51)
[2018-04-23] MEDS ORDERED: GING1POW MC (12:50)
== END 2018-06-07 14:31 | disposition home or self-care (01) ==
LOC: RAON 13:53
PROVIDERS: ATTEND Radiology Radiation Oncology
DX: C50.912 Malignant neoplasm of unspecified site of left female breast (principal); Z17.0 Estrogen receptor positive status [ER+]; Z87.891 Personal history of nicotine dependence
CPT/HCPCS: 99203

== ENCOUNTER 2018-04-14 15:23 | Emergency (ER) | payer MEDICARE ==
--- NOTE | 2018-04-14 15:48 | ER Report ---
History and Physical Time Seen By MD: 15:27 Hx. of Stated Complaint: PATIENT RECENTLY STARTED CHEMOTHERAPY ON THURSDAY. SHE REPORTS STARTING A FEVER TODAY HPI/ROS CHIEF COMPLAINT: Fever HISTORY OF PRESENT ILLNESS: Pt recently dx with left sided breast ca. Pt started chemo here in [place] this Thursday, Dose -dense AC with adriamycin and cyclophosphamide followed by neulasta. Pt states she immediately felt horrible after the chemo. + nausea. Pt was also consipated until today where she had a soft stool. PT started today with a fever of 100.3. Pt states she feels "generally horrible". Accept for nausea pt is unable to further elaborate on what feels horrible.no cough. no uri symptoms. no abd pain. Pt states her port feels "sore" but that was just placed. Pt also state her left arm is sore but has been sore since she had her lymph nodes removed. REVIEW OF SYSTEMS: Constitutional: + fever, no chills. Eyes: No discharge. ENT: No sore throat. Cardiovascular: No chest pain, no palpitations. Respiratory: No cough, no shortness of breath. Gastrointestinal: No abdominal pain, + nausea, no vomiting. Genitourinary: No hematuria. Musculoskeletal: No back pain. Skin: No rashes. Neurological: No headache. Allergies: Coded Allergies: phenazopyridine (Verified Allergy, Mild, CAN'T REMEMBER, 12/24/16) Uncoded Allergies: PERFUMES (Allergy, Mild, NOSE BROWN, BRAIN CONFUSED, COUGHING AND SNEEZING, 11/06/07) Home Meds Active Scripts Docusate Sodium (COLACE) 100 Mg Capsule, 1 CAP PO BID, #30 CAP 0 Refills TAKE WITH A FULL GLASS OF WATER Prov:KIRBY SUTTON MD 04/06/18 Oxycodone Hcl/Acet 5/325 Mg (ENDOCET 5-325 TABLET) 1 Each Tablet, 1 TAB PO Q4H PRN for PAIN, #10 TAB 0 Refills Prov:KIRBY SUTTON MD 04/06/18 Cyclobenzaprine Hcl (CYCLOBENZAPRINE HCL) 10 Mg Tablet, 10 MG PO TID, #20 TAB TAKE 1 TABLET BY MOUTH THREE TIMES A DAY Prov:KIRBY CHÁVEZ MD 10/27/13 Reported Medications Levothyroxine Sodium (LEVOTHYROXINE SODIUM) 100 Mcg Tablet, 100 MCG PO QDAY, TAB 02/04/17 Calcium Carbonate/Vitamin D3 (CALCIUM 600 + VIT D 200 TABLET) 1 Each Tablet, 1 EACH PO QDAY 01/28/17 Pravastatin Sodium (PRAVASTATIN SODIUM) 20 Mg Tablet, 20 MG PO QDAY 01/28/17 Cyanocobalamin (Vitamin B-12) (Vitamin B12) 2,500 Mcg Tablet, 1 TAB PO QDAY 01/28/17 Multivitamins (Multivitamin) 1 Tab Tablet, 1 TAB PO DAILY 11/06/07 Past Medical/Surgical History Pmhx: hyperlipid, gerd, hypothyroid, arthritis, essential tremor, breat ca, fibromyaglia Pshx: breast bx with 5 lymphnodes removed, L knee, hyster, wrist Hx Smoking: No (FOR 13 YEARS, ONE PPD, QUIT 1973) Smoking Status: Former Smoker Exposure to Second Hand Smoke?: No Hx Substance Use Disorder: No Hx Alcohol Use: Yes Constitutional Vital Sign - Last 24 Hours 04/14/18 04/14/18 04/14/18 04/14/18 15:33 15:34 15:53 15:58 Temp 100.5 Pulse 78 82 76 Resp 24 B/P (MAP) 148/97 (114) 148/97 Pulse Ox 86 94 96 O2 Delivery Room Air 04/14/18 04/14/18 04/14/18 16:28 16:58 17:27 Temp 99.2 Pulse 75 67 Pulse Ox 95 96 Physical Exam General Appearance: The patient is alert, has no immediate need for airway protection and no signs of toxicity. Eyes: Pupils equal and round no pallor or injection, EOMI ENT: no pharyngeal erythema or exudates, Mucous membranes are moist Respiratory: There are no retractions, lungs are clear to auscultation. Cardiovascular: Regular rate and rhythm. pulses are equal and symmetrical Gastrointestinal: Abdomen is soft and non tender, no masses, bowel sounds normal, no guarding, no rigidity or rebound Neurological: Cranial nerves II-XII grossly intact, no sensory or motor loss Skin: Warm and dry, no rashes, Bruising over port site without any signs of redness or drainage Musculoskeletal: Neck is supple non tender, no vertebral tenderness Extremities are nontender, non swollen and have full range of motion. DIFFERENTIAL DIAGNOSIS: After history and physical exam differential diagnosis was considered for uti, sepsis, pneumonia, line sepsis Medical Decision Making Data Points Result Diagram: 04/14/18 1551 04/14/18 1551 Laboratory Hematology Test 04/14/18 15:51 04/14/18 16:00 Red Blood Count 4.67 M/uL (4.17-5.56) Mean Corpuscular Volume 88.5 fL (80.0-96.0) Mean Corpuscular Hemoglobin 30.7 pg (26.0-33.0) Mean Corpuscular Hemoglobin Concent 34.7 g/dL (32.0-36.0) Red Cell Distribution Width 12.8 % (11.5-14.5) Mean Platelet Volume 8.4 fL (7.2-11.1) Neutrophils (%) (Auto) 89.4 % (39.4-72.5) Lymphocytes (%) (Auto) 6.4 % (17.6-49.6) Monocytes (%) (Auto) 2.3 % (4.1-12.4) Eosinophils (%) (Auto) 1.2 % (0.4-6.7) Basophils (%) (Auto) 0.7 % (0.3-1.4) Nucleated RBC Relative Count (auto) 0.0 /100WBC Neutrophils # (Auto) 9.1 K/uL (2.0-7.4) Lymphocytes # (Auto) 0.7 K/uL (1.3-3.6) Monocytes # (Auto) 0.2 K/uL (0.3-1.0) Eosinophils # (Auto) 0.1 K/uL (0.0-0.5) Basophils # (Auto) 0.1 K/uL (0.0-0.1) Nucleated RBC Absolute Count (auto) 0.01 K/uL Sodium Level 133 mmol/L (137-145) Potassium Level 4.5 mmol/L (3.5-5.0) Chloride Level 97 mmol/L (98-107) Carbon Dioxide Level 27 mmol/L (22-31) Blood Urea Nitrogen 21 mg/dl (7-18) Creatinine 0.80 mg/dl (0.52-1.04) Glomerular Filtration Rate Calc > 60.0 Random Glucose 99 mg/dl (75-110) Calcium Level 8.9 mg/dl (8.4-10.2) Total Bilirubin 0.4 mg/dl (0.2-1.3) Aspartate Amino Transf (AST/SGOT) 28 U/L (0-35) Alanine Aminotransferase (ALT/SGPT) 43 U/L (0-56) Alkaline Phosphatase 92 U/L (0-126) Total Protein 6.8 g/dl (6.3-8.2) Albumin 4.3 g/dl (3.5-5.0) Urine Color Yellow Urine Clarity Clear Urine pH 5.0 pH (4.8-9.5) Urine Specific [place] 1.014 Urine Protein Negative mg/dL (NEGATIVE) Urine Glucose (UA) Negative mg/dL (NEGATIVE) Urine Ketones Negative mg/dL (NEGATIVE) Urine Blood Negative (NEGATIVE) Urine Nitrite Negative (NEGATIVE) Urine Bilirubin Negative (NEGATIVE) Urine Urobilinogen Negative mg/dL (0.2-1.9) Urine Leukocyte Esterase Negative (NEGATIVE) Urine RBC None /HPF (0-2/HPF) Urine WBC <1 /HPF (0-5/HPF) Urine Squamous Epithelial Cells Few /LPF (NONE-FEW) Urine Bacteria Negative /HPF (NONE-FEW) Urine Mucus None /HPF (NONE-FEW) Chemistry Test 04/14/18 15:51 04/14/18 16:00 White Blood Count 10.2 k/uL (4.5-11.0) Red Blood Count 4.67 M/uL (4.17-5.56) Hemoglobin 14.3 g/dL (12.0-16.0) Hematocrit 41.3 % (34.0-47.0) Mean Corpuscular Volume 88.5 fL (80.0-96.0) Mean Corpuscular Hemoglobin 30.7 pg (26.0-33.0) Mean Corpuscular Hemoglobin Concent 34.7 g/dL (32.0-36.0) Red Cell Distribution Width 12.8 % (11.5-14.5) Platelet Count 106 K/uL (150-450) Mean Platelet Volume 8.4 fL (7.2-11.1) Neutrophils (%) (Auto) 89.4 % (39.4-72.5) Lymphocytes (%) (Auto) 6.4 % (17.6-49.6) Monocytes (%) (Auto) 2.3 % (4.1-12.4) Eosinophils (%) (Auto) 1.2 % (0.4-6.7) Basophils (%) (Auto) 0.7 % (0.3-1.4) Nucleated RBC Relative Count (auto) 0.0 /100WBC Neutrophils # (Auto) 9.1 K/uL (2.0-7.4) Lymphocytes # (Auto) 0.7 K/uL (1.3-3.6) Monocytes # (Auto) 0.2 K/uL (0.3-1.0) Eosinophils # (Auto) 0.1 K/uL (0.0-0.5) Basophils # (Auto) 0.1 K/uL (0.0-0.1) Nucleated RBC Absolute Count (auto) 0.01 K/uL Glomerular Filtration Rate Calc > 60.0 Calcium Level 8.9 mg/dl (8.4-10.2) Total Bilirubin 0.4 mg/dl (0.2-1.3) Aspartate Amino Transf (AST/SGOT) 28 U/L (0-35) Alanine Aminotransferase (ALT/SGPT) 43 U/L (0-56) Alkaline Phosphatase 92 U/L (0-126) Total Protein 6.8 g/dl (6.3-8.2) Albumin 4.3 g/dl (3.5-5.0) Urine Color Yellow Urine Clarity Clear Urine pH 5.0 pH (4.8-9.5) Urine Specific [place] 1.014 Urine Protein Negative mg/dL (NEGATIVE) Urine Glucose (UA) Negative mg/dL (NEGATIVE) Urine Ketones Negative mg/dL (NEGATIVE) Urine Blood Negative (NEGATIVE) Urine Nitrite Negative (NEGATIVE) Urine Bilirubin Negative (NEGATIVE) Urine Urobilinogen Negative mg/dL (0.2-1.9) Urine Leukocyte Esterase Negative (NEGATIVE) Urine RBC None /HPF (0-2/HPF) Urine WBC <1 /HPF (0-5/HPF) Urine Squamous Epithelial Cells Few /LPF (NONE-FEW) Urine Bacteria Negative /HPF (NONE-FEW) Urine Mucus None /HPF (NONE-FEW) Urinalysis Test 04/14/18 16:00 Urine Color Yellow Urine Clarity Clear Urine pH 5.0 pH (4.8-9.5) Urine Specific [place] 1.014 Urine Protein Negative mg/dL (NEGATIVE) Urine Glucose (UA) Negative mg/dL (NEGATIVE) Urine Ketones Negative mg/dL (NEGATIVE) Urine Blood Negative (NEGATIVE) Urine Nitrite Negative (NEGATIVE) Urine Bilirubin Negative (NEGATIVE) Urine Urobilinogen Negative mg/dL (0.2-1.9) Urine Leukocyte Esterase Negative (NEGATIVE) Urine RBC None /HPF (0-2/HPF) Urine WBC <1 /HPF (0-5/HPF) Urine Squamous Epithelial Cells Few /LPF (NONE-FEW) Urine Bacteria Negative /HPF (NONE-FEW) Urine Mucus None /HPF (NONE-FEW) ED Course/Re-evaluation Clinical Indication for ER IV: IV Access ED Course blood, urine cultures and general labs. Motrin for fever 04/14/2018 5:05:05 pm Labs are stable. attempt to call oncology however oncologist is currently in with a patient in [place] office. Was asked to call back when able. 04/14/2018 5:21:25 pm reattempted to get in touch with Dr. Dean but was sent to answering service. Gave service information to be called back . 04/14/2018 5:46:[address] Dean who states that the fever may be due to the Neulasta. Would like for pt to be on Levaquin 500mg for 5 days while we are awaiting cultures. He will follow up with pt. However, if a ever of 101 develops she should return. Decision to Disposition Date: Apr 14, 2018 Decision to Disposition Time: 17:46 Depart Departure Latest Vital Signs Vital Signs Date Time Temp Pulse Resp B/P (MAP) Pulse Ox O2 Delivery O2 Flow Rate FiO2 04/14/18 17:27 99.2 04/14/18 16:58 67 96 04/14/18 15:34 24 148/97 Room Air Impression: Primary Impression: Stage II breast cancer in female Additional Impressions: Chemotherapy induced nausea and vomiting Fever Condition: Condition Unchanged Disposition: HOME OR SELF-CARE Referrals: BISI RONQUILLO DO (PCP) NITA MENDEZ MD 2 Days New Scripts Levofloxacin 500 Mg Tab (LEVAQUIN 500 MG TAB) 500 Mg Tablet 500 MG PO DAILY, #4 TAB Prov: GREGORIO ESTEBAN DO 04/14/18 Patient Instructions: Chemo Induced Nausea and Vomiting (GEN) Additional Instructions: Continue with your current medications. We are adding and antibiotic, Levaquin once a day for 5 days. Follow up with oncology. If symptoms worsen, fever of 101 or higher or any other concerns occur prior to seeing oncology then please return. Problem Qualifiers Additional Impressions: Fever Fever type: unspecified Qualified Codes: R50.9 - Fever, unspecified GREGORIO ESTEBAN DO Apr 14, 2018 15:48
[2018-04-14] MEDS ORDERED: ONDANSETRON 4 MG/2 ML VIAL IVP ONE (15:55)
[2018-04-14] MEDS ORDERED: IBUPROFEN 600 MG TAB PO ONE (15:55)
[2018-04-14 16:10] LABS: PLATELET COUNT, AUTOMATED 106 K/uL (150-450)
--- NOTE | 2018-04-14 16:51 | RADIOLOGY IMAGING REPORT ---
FACILITY: [facility] PATIENT NAME: Karin Stovall : 1945 MR: [id number] V: [id number] EXAM DATE: ORDERING PHYSICIAN: GREGORIO ESTEBAN TECHNOLOGIST: Location: Patient: Karin Stovall : 1945 Visit/Account:[id number] Date of Sevice: 04/14/2018 Exam type: CHEST PA AND LAT History: Fever x1 day, power port for chemotherapy use, breast cancer Comparison: April 06, 2018. Findings: Again noted is right IJ implanted port with the distal tip ejecting over the superior vena cava. No pneumothorax is seen. There is no evidence of focal infiltrates, pleural effusions or pulmonary elana a. The cardiac silhouette is normal in size. IMPRESSION: 1. Right IJ port appears in good position No evidence of pulmonary consolidation Report Dictated By: Norma Chaudhary MD at 04/14/2018 4:44 PM Report E-Signed By: Norma Chaudhary MD at 04/14/2018 4:47 PM WSN:[email or web address]
[2018-04-14] MEDS ORDERED: LEVOFLOXACIN 500 MG TAB PO ONE (17:45)
[2018-04-14] MEDS ORDERED: LEVO-85 PO (17:51)
[2018-04-14 18:02] VITALS: BP 115/80
== END 2018-04-14 18:25 | disposition home or self-care (01) ==
LOC: ER 15:35
DX: R50.9 Fever, unspecified (principal); R11.2 Nausea with vomiting, unspecified; T45.1X5A Adverse effect of antineoplastic and immunosuppressive drugs, initial encounter; C50.912 Malignant neoplasm of unspecified site of left female breast
CPT/HCPCS: 36415; 71046; 81001; 85025; 87040; 87088; 99284; A4353; A9270; 82040; 82247; 82310; 82374; 82435; 82565; 82947; 84075; 84132; 84155; 84295; 84450; 84460; 84520; 99283

== ENCOUNTER 2018-05-21 13:45 | Outpatient (RCR) | payer MEDICARE ==
--- NOTE | 2018-04-09 16:53 | PT INITIAL EVALUATION ---
MEDICAL DIAGNOSIS: Breast Cancer TREATMENT DIAGNOSIS: Breast Cancer DATE OF ONSET: 04/09/18 SUBJECTIVE: Karin Dove" is a 72 year old female presenting to oncology rehabilitation following recent diagnosis of left breast cancer. Initial treatment included lumpectomy 5 weeks ago with 5 lymph nodes removed. Pt is to receive education today as well as start oncological treatment consisting of dose-dense AC with Adriamycin and cyclophosphamide, followed by Neulasta after each cycle of dose-dense AC. Following four cycles of dose-dense AC pt will start 12 weekly doses of Taxol. Following completion of medical oncology intervention, pt is going to receive eternal beam radiation. At this time pt reports tightness in the L arm extending to the wrist with occasional nerve pain. Pt also has a history of neck pain on the L>R related to arthritis. Additionally, pt reports some collecting of fluid around the area of the lumpectomy in the upper left quadrant. REHAB PROBLEM LIST: Decreased ROM Decreased Strength Decreased Endurance Decreased Function Decreased ADL's Decreased Mobility PREVIOUS MEDICAL HISTORY: See EMR OCCUPATION: Retired OBJECTIVE: PowerPort was placed three days prior and sutures are still evident on the R side of the anterior neck. ROM: UE ROM (L,R): Flexion: 145, 140, Abd: 140, 138, ER: 65, 65, IR: T4, T5 Strength: UE MMT (L,R): Flexion: B 5/5, ext: B 5/5, Abd: 4+/5, 5/5, ER: 4+/5, 5/5, IR: B 5/5 3 finger pinch sales rep: L 14#, R 13# Palpation: Moderate axillary cording is present extending to the L elbow with pulling sensation extending down to the L wrist. Sensation: Pt reports no neuropathy at this time in fingers or toes. Mobility: ECOG Performance Status: grade 2 Other Objective Findings: Functional Assessment of Cancer Therapy-General (FACT- G): Eval: PWB: , SWB:, EWB: , FWB: , Total: 94/108 ASSESSMENT: "Dede" presents with signs and symptoms consistent with oncological intervention of left breast cancer following surgical intervention. Physical therapy is indicated for this patient to improve the above listed deficits as well as to maintain functional status with ongoing oncological intervention. Short Term Goals In 2 MO pt will maintain FACT-G score of >85 to maintain function with ADL's. In 4 MO pt will maintain FACT-G score of >85 to maintain function with ADL's. In 4 MO pt will maintain ECOG performance status of 2 or greater for improved function with ALD's. In 4 MO pt will improve L shoulder mobility to equal to that of the R for improved function with ADL's. In 4 MO pt will increase L shoulder strength to equal to that of the R for improved function with ADL's. Patient's Goals Maintain function with ongoing oncological treatment. PLAN: Patient to be seen for Manual Therapy/STM/MET Strengthening/condition Ice/Heat Range of Motion Spinal Stabilization Ultrasound Stretching Iontophoresis Neuromuscular Re-ed Closed Chain Program Electrical Stim Posture/Body mechanics Biofeedback Home Exercise Program Mech./Manual Traction Therapeutic Activities Every 2 weeks for 4 Months If you have any questions, comments, or concerns about this report or plan, please contact me at . Ana Luisa Pop, PT, DPT, CLT MTDD
[~2018-05-21 13:45] MED LIST changes: +GING1POW MC; +LEVO-85 PO
[2018-06-18] MEDS ORDERED: GABA-547 PO (14:13)
== END 2018-07-08 ==
LOC: PT 13:45
PROVIDERS: ATTEND Internal Medicine Hematology
DX: C50.912 Malignant neoplasm of unspecified site of left female breast (principal); M54.2 Cervicalgia
CPT/HCPCS: 97161

== ENCOUNTER 2018-06-28 12:00 | Outpatient (RCR) | payer MEDICARE ==
[2018-04-01 14:26] VITALS: BP 138/80
--- NOTE | 2018-04-01 18:31 | ONCOLOGY CONSULTATION ---
EVENT DATE: April 01, 2018 REFERRING PHYSICIAN King Cooper MD PRIMARY CARE PHYSICIAN Maegan Serrano, REASON FOR CONSULTATION Evaluation and management of left breast cancer. ONCOLOGY HISTORY Patient is a 72-year-old female who felt a lump in her upper outer quadrant, so the patient had an ultrasound of the left breast done on February 03, 2018 which showed a left breast heterogeneous solid mass at 2 o'clock, measuring 1.7 x 1.6 x 2.2 cm, suspicious for malignancy. Patient had ultrasound-guided biopsy of the left breast mass done on February 15, 2018, and the pathology came back positive for infiltrating ductal carcinoma grade 2. She ended by having left breast lumpectomy and sentinel lymph node biopsy done on March 03, 2018 and the pathology came back positive for 2 x 2 x 2 cm left breast infiltrating ductal carcinoma grade 2/3 with positive lymphovascular invasion. Two out of five sentinel lymph nodes came back positive for metastasis. One of the lymph nodes as an area of macro metastasis measured about 3 mm, ER positive 97.1%, IN negative, HER2/josiah was 1+ not expressed while Ki-67 showed high proliferation at 34.9%. So the patient's tumor was staged as a stage IIA (pT1c pN1a, cM0). PAST MEDICAL HISTORY 1. Essential tremors. 2. Hypercholesterolemia. PAST SURGICAL HISTORY 1. Left knee replacement. 2. Abdominal surgery for resection of about 15 tumors from the abdomen which were benign. 3. Hysterectomy in 1985. 4. Two wrist surgeries. FAMILY HISTORY Mother had with stage IV breast cancer diagnosed at age 68 years of age. One sister had also stage IV breast cancer diagnosed at age of 61. SOCIAL HISTORY Patient is with four children. 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 She quit smoking in 1973 after one pack a day for 16 years. Occasionally drinks alcohol, but no abuse of illicit drugs. CURRENT MEDICATIONS 1. Colace 100 mg twice daily. 2. Cyclobenzaprine 10 mg three times daily. 3. Levothyroxine 100 mcg daily. 4. Calcium carbonate/vitamin D3 600/200 tablet daily. 5. Hydrochlorothiazide 25 mg daily. 6. Famotidine 20 mg daily. 7. Pravastatin 20 mg daily. 8. Vitamin B12 2500 mcg tablet daily. 9. Percocet 5/325 tablet p.r.n. every six hours. 10. Ibuprofen 800 mg every eight hours. 11. Multivitamin one tablet daily. ALLERGIES FENAZOPIRIDINA, cannot remember the reaction. REVIEW OF SYSTEMS CONSTITUTIONAL: No appetite or weight change. No fever, chills. She has sweating. No recent infection. HEENT: Ears: No tinnitus or hearing problem. Nose: She has nasal discharge. No epistaxis. Throat: No sore throat or mouth ulcers. Eyes: No diplopia or visual changes. RESPIRATORY: No shortness of breath. She has cough. No expectoration or hemoptysis. CARDIOVASCULAR: No chest pain, orthopnea, or paroxysmal nocturnal dyspnea (PND). No edema. No palpitations. GASTROINTESTINAL: No nausea or vomiting. She has intermittent diarrhea. No constipation. No heartburn or swallowing difficulties. No abdominal pain. No jaundice. No hematemesis, melena or rectal bleeding. GENITOURINARY: No hematuria or dysuria. MUSCULOSKELETAL: She has pain all over her joints due to fibromyalgia. NEUROLOGICAL: No tingling or numbness in the hands or feet. No headaches or convulsions. HEMATOLOGIC/LYMPHATIC: No bleeding or easy bruising. She is weak, tired and fatigued. No enlarged lymph nodes. SKIN: No skin rash or lumps. PSYCHIATRIC: No anxiety or depression. PHYSICAL EXAMINATION GENERAL: Looks stable. Well-developed, well-nourished, and in no acute distress. VITAL SIGNS: Blood pressure 138/80, pulse 82 per minute, respirations 16 per minute, temperature 97.9, pulse ox 93% on room air. HEENT: Head: Atraumatic. No sinus tenderness to palpation. Eyes: No icterus or conjunctivitis. Mouth and Throat: No oral thrush or mucositis. NECK: Supple. No cervical or supraclavicular lymphadenopathy. LUNGS: Clear to auscultation and percussion bilaterally. HEART: Regular rate and rhythm. No gallops, murmurs, clicks or rubs. ABDOMEN: Soft and lax. No tenderness. No hepatosplenomegaly. No masses. EXTREMITIES: No cyanosis, clubbing or edema. LYMPHATICS: No peripheral lymphadenopathy. NEUROLOGICAL: Conscious, alert and oriented times three. No focal motor or sensory deficits. PSYCHIATRIC: Mood and affect appear normal. SKIN: No skin rash, bruise or purpuric eruption. ASSESSMENT Stage IIA (pT1c pN1a cM0) left breast infiltrating ductal carcinoma. Two out of five lymph nodes came back positive for metastasis with one with macro metastasis measured 0.3 cm. Patient had lumpectomy and sentinel lymph node biopsy done March 03, 2018. ER positive 95.9%, IN is negative, HER2/josiah negative 1+ by immunohistochemistry and Ki-67 was high at 34.9%. I had a long discussion with the patient and her daughter today regarding further management. I am planning to treat her with adjuvant chemotherapy, so I am planning to treat her with dose dense AC with Adriamycin and cyclophosphamide for four courses every two weeks, to be followed by 12 weekly doses of Taxol. Side effects expected from chemotherapy are explained to the patient and her daughter. For administration of chemotherapy, I am planning to refer the patient back o Dr. Cooper for placement of central port, and I am planning also to get echocardiogram for evaluation of left ventricular ejection fraction because of the cardiomyopathy side effect from Adriamycin. I explained that to the patient. She is agreeable with the plan of management, and I answered all their questions today to their satisfaction. PLAN 1. Echocardiogram for evaluation of left ventricular ejection fraction. 2. Referral to Dr. Cooper for placement of central port. 3. Patient to return after the above with CBC, chem panel to start chemotherapy with dose dense AC. 4. Patient to contact us for any new concerns or complaints. [facility]
[2018-04-08 10:43] VITALS: BP 158/96
[2018-04-08 11:12] LABS: PLATELET COUNT, AUTOMATED 153 K/uL (150-450)
--- NOTE | 2018-04-08 11:54 | EL-TAR[facility] ONCOLOGY NOTE ---
EVENT DATE: April 08, 2018 DIAGNOSES Stage IIA (pT1C pN1a cM0) left breast infiltrating ductal carcinoma. CHIEF COMPLAINT Patient is here today for followup of her left breast cancer. ONCOLOGY HISTORY Patient is a 72-year-old female who felt a lump in her upper outer quadrant, so the patient had an ultrasound of the left breast done on February 03, 2018 which showed a left breast heterogeneous solid mass at 2 o'clock, measuring 1.7 x 1.6 x 2.2 cm, suspicious for malignancy. Patient had ultrasound-guided biopsy of the left breast mass done on February 15, 2018, and the pathology came back positive for infiltrating ductal carcinoma grade 2. She ended by having left breast lumpectomy and sentinel lymph node biopsy done on March 03, 2018 and the pathology came back positive for 2 x 2 x 2 cm left breast infiltrating ductal carcinoma grade 2/3 with positive lymphovascular invasion. Two out of five sentinel lymph nodes came back positive for metastasis. One of the lymph nodes as an area of macro metastasis measured about 3 mm, ER positive 97.1%, SD negative, HER2/josiah was 1+ not expressed while Ki-67 showed high proliferation at 34.9%. So the patient's tumor was staged as a stage IIA (pT1c pN1a, cM0). 2D echocardiogram showed left ventricular ejection fraction normal at 70%. The patient has started treated with dose-dense AC with Adriamycin and cyclophosphamide on April 09, 2018. HISTORY OF PRESENT ILLNESS Patient is here today for followup of her left breast cancer. She is complaining of some pain after the port placement on her right side. She has also musculoskeletal pain due to her fibromyalgia. She is a little bit weak, tired and fatigued. PAST MEDICAL HISTORY 1. Essential tremors. 2. Hypercholesterolemia. PAST SURGICAL HISTORY 1. Left knee replacement. 2. Abdominal surgery for resection of about 15 tumors from the abdomen which were benign. 3. Hysterectomy in 1985. 4. Two wrist surgeries. FAMILY HISTORY Mother had with stage IV breast cancer diagnosed at age 68 years of age. One sister had also stage IV breast cancer diagnosed at age of 61. SOCIAL HISTORY Patient is with four children. 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 She quit smoking in 1973 after one pack a day for 16 years. Occasionally drinks alcohol, but no abuse of illicit drugs. CURRENT MEDICATIONS 1. Colace 100 mg twice daily. 2. Cyclobenzaprine 10 mg three times daily. 3. Levothyroxine 100 mcg daily. 4. Calcium carbonate/vitamin D3 600/200 tablet daily. 5. Hydrochlorothiazide 25 mg daily. 6. Famotidine 20 mg daily. 7. Pravastatin 20 mg daily. 8. Vitamin B12 2500 mcg tablet daily. 9. Percocet 5/325 tablet p.r.n. every six hours. 10. Ibuprofen 800 mg every eight hours. 11. Multivitamin one tablet daily. ALLERGIES FENAZOPIRIDINA, cannot remember the reaction. REVIEW OF SYSTEMS CONSTITUTIONAL: No appetite or weight change. No fever, chills. She has sweating. No recent infection. HEENT: Ears: No tinnitus or hearing problem. Nose: She has nasal discharge. No epistaxis. Throat: No sore throat or mouth ulcers. Eyes: No diplopia or visual changes. RESPIRATORY: No shortness of breath. She has cough. No expectoration or hemoptysis. CARDIOVASCULAR: No chest pain, orthopnea, or paroxysmal nocturnal dyspnea (PND). No edema. No palpitations. GASTROINTESTINAL: No nausea or vomiting. She has intermittent diarrhea. No constipation. No heartburn or swallowing difficulties. No abdominal pain. No jaundice. No hematemesis, melena or rectal bleeding. GENITOURINARY: No hematuria or dysuria. MUSCULOSKELETAL: She has fibromyalgia with musculoskeletal pain, which is generalized. NEUROLOGICAL: No tingling or numbness in the hands or feet. No headaches or convulsions. HEMATOLOGIC/LYMPHATIC: She bruises easily after the port placement and she is weak, tired and fatigued. SKIN: No skin rash or lumps. PSYCHIATRIC: No anxiety or depression. PHYSICAL EXAMINATION GENERAL: Looks stable. Well-developed, well-nourished, and in no acute distress. VITAL SIGNS: Blood pressure 158/96, pulse 57 per minute, respirations 18 per minute, temperature 97.3, pulse ox 93% on room air. HEENT: Head: Atraumatic. No sinus tenderness to palpation. Eyes: No icterus or conjunctivitis. Mouth and Throat: No oral thrush or mucositis. NECK: Supple. No cervical or supraclavicular lymphadenopathy. LUNGS: Clear to auscultation and percussion bilaterally. HEART: Regular rate and rhythm. No gallops, murmurs, clicks or rubs. ABDOMEN: Soft and lax. No tenderness. No hepatosplenomegaly. No masses. EXTREMITIES: No cyanosis, clubbing or edema. LYMPHATICS: No peripheral lymphadenopathy. NEUROLOGICAL: Conscious, alert and oriented times three. No focal motor or sensory deficits. PSYCHIATRIC: Mood and affect appear normal. SKIN: No skin rash, bruise or purpuric eruption. DIAGNOSTIC DATA 2D echocardiogram showed left ventricular ejection fraction of 70%. ASSESSMENT Stage IIA (pT1c pN1a cM0) left breast infiltrating ductal carcinoma. Two out of five lymph nodes came back positive for metastasis with one with macro metastasis measured 0.3 cm. Patient had lumpectomy and sentinel lymph node biopsy done March 03, 2018. ER positive 95.9%, SD is negative, HER2/josiah negative 1+ by immunohistochemistry and Ki-67 was high at 34.9%. 2D echocardiogram came back normal with left ventricular ejection fraction of 70%. The patient will start treatment with dose-dense AC with Adriamycin and cyclophosphamide on April 09, 2018. I am planning to treat her with Neulasta 60 mg after each cycle of dose-dense AC. CBC and chem panel to be checked weekly. I will see her in two weeks prior to the next cycle of chemotherapy with CBC and chem panel at that time. The plan is to treat her with four cycles of dose-dense AC to be followed by 12 weekly doses of Taxol. The patient and her today are agreeable with the plan of management. PLAN 1. Dose-dense AC cycle #1 on April 09, 2018. 2. CBC and chem panel to be checked weekly. 3. Neulasta 60 mg subcutaneously after chemotherapy. 4. Patient to return in two weeks with CBC and chem panel. 5. Patient is to contact us for any new concerns or complaints. MTDD
[2018-04-09 13:41] VITALS: BP 156/98
[2018-04-09] MEDS: DEXAMETHASONE SOD PHOS 10MG/ML IVP PRN (14:11)
[2018-04-09] MEDS: PALONOSETRON 0.25 MG/5 ML VIAL IVP PRN (14:11)
[2018-04-09] MEDS: FOSAPREPITANT DIM 150 MG/5 ML 150 MG in NS(*) 0.9% 250 ML BAG 245 ML IVPB PRN (14:25)
[2018-04-15 11:11] VITALS: BP 114/66
[2018-04-15] MEDS: HEPARIN FLSH (PORT) 500 UN/5ML IVP PRN (11:20)
--- NOTE | 2018-04-16 15:26 | Pharmacy Note ---
Pharmacy Note Note: Clinical Pharmacist Note: Chemotherapy Education Visit (LATE ENTRY) Date: 04/09/18 Chemotherapy Regimen: Dose Dense AC x 4 + Pegfilgrastim x 4 cycles The regimen includes doxorubicin, cyclophosphamide, pegfilgrastim given every 14 days x 4 cycles, followed by paclitaxel given weekly x 12 weeks. (education on paclitaxel to occur later) The schedule of treatment administration was explained in detail to the patient in regards to lab visits, timing and sequence of premedications and chemotherapy, followed by any supportive medications to be given. Discussed the purpose of the port and why we administer chemotherapy through a port. Port placed prior to chemo ed appointment. Patient's diagnosis, treatment plan, and intent of treatment along with goals are outlined on the signed consent form, that was reviewed and signed at the end of this appointment. The goal is curative treatment (recovery from disease). The potential for drug/drug interaction and drug/food interactions were explained to the patient. A medication reconciliation was reviewed by the pharmacist today. We reviewed and discussed toxicities of supportive care medications and how to appropriately use supportive medications including the schedule of anti-emetics. These medications include the following: Take home medications: dexamethasone, ondansetron, prochlorperazine, lorazepam, emla cream Pre-medications: fosaprepitant, palonosetron, dexamethasone Supportive Medications: pegfilgrastim We have also discussed the potential for long and short term side effects of chemotherapy including, but not limited to the side effects outlined below: -Low WBCs or neutropenia: Patient may experience bone marrow toxicity that would increase their risk for infection. Patient is aware to look for signs and symptoms of infection (e.g. fever of higher than 100.4F, chills, sore throat, etc.) and knows what number to call and when to contact the clinic. Advised patient of things they can do such as wash hands with soap and water often, avoid people who are sick, and avoid crowds during times of low blood counts (typically 7-10 days post chemotherapy). Discussed the need for pegfilgrastim with dose dense AC to reduce the risk of neutropenia. - Low RBCs or anemia: Anemia is when you don't have enough red blood cells to carry oxygen through your body, which causes fatigue, weakness, lightheadedness, pale skin, SOB, or headaches. Discussed the importance of getting enough restful sleep at night and eating a diet rich in iron. Lab values will be closely monitored to check your RBCs. Advised patient to contact the clinic if they have a fast heart rate, dizziness, or lightheadedness. -Low platelet counts or thrombocytopenia: Patient may experience low platelets which can lead to increased risk of bleeding, easy bruising, black or bloody stools, or small red or purple spots on the skin. Platelets help blood to clot and if your platelets are low enough, bleeding may not stop after a few minutes. Excessive bleeding or bruising, red spots on your skin or new onset headaches require a phone call to the clinic. - Fatigue (feeling tired): Some patients may experience fatigue, or feel tired, weak, low energy, drained or exhausted. You will experience fatigue after chemotherapy, but the amounts for each person and chemotherapy will differ. Advised patient to stay active as much as they can with light exercise, take short naps if needed, get a restful night of sleep, and eat a well-balanced diet. Call the clinic if you are unable to get out of bed or do typical daily activities, have shortness of breath, or have trouble walking small distances. -Nausea or vomiting: Most patients may experience some level of nausea (feeling queasy or sick to your stomach) or vomiting. Advised patient to take their anti-nausea medications as prescribed, drink plenty of fluids, eat several small meals throughout the day, eat bland easy to digest foods, and speak to our import/export freight forwarder if they have questions. Call the clinic if the nausea or vomiting is not eased by your medications and lasts 12 hours or longer, or if unable to eat or drink, or keep medicines down. - Appetite changes (eating less or more): You may experience a decrease or increase in your appetite that might last a day, weeks or months. Advised patient to set a schedule for eating and drink high protein drinks to maintain calories. Ask your doctor or nurse for a import/export freight forwarder consult to help manage your appetite changes or if you have concerns about your appetite changes. Contact the clinic if you notice a change in weight and if you are unable to take in more than a few bites of food or sips of liquid at mealtimes. Favorite foods may also taste different or may not be pleasing. -Hair loss or alopecia: Hair loss typically begins 2-3 weeks after the first chemotherapy treatment and can range from thinning to full body hair loss, and can occur anywhere on your body. Your hair may come out a little at a time or in clumps and your scalp may feel tender before the hair falls out. In the meantime, you can cut your hair or choose a wig- protect your head and wear sunscreen and mild shampoo and brushes. The hair will usually grow back about 2-3 months after you finish chemotherapy and may be a different texture or color when it returns. -Mouth sores and oral care (mucositis or stomatitis): Patient was informed that they may experience taste changes, dry mouth, and potential mouth sores due to the chemotherapy. The best way to prevent and treat mouth sores is to do rou juliano mouth care each day. If mouth sores occur, use mouth rinses with baking soada, alst and warm water after meals and before bed (dissolve 2 TBSP of baking soda and 1/2 tsp of salt in 8 oz of warm water--swish and spit). Avoid mouthwashes with alcohol and spicy food if mouth sores exist. If dry mouth occurs, sucking on ice chips or sugar free hard candy can help. -Neuropathy (numbness-pins and needles-tingling): Patient may experience acute and chronic neuropathy that can potentially be irreversible due to the chemotherapy. The patient is advised to report symptoms to the clinic if they experience burning, tingling, and numbness in the hands, feet, face or mouth. -Cardiotoxicity: Patient may experience cardiotoxicity as a result of chemotherapy. LVEF was evaluated at baseline with an echocardiogram on 04/05/18 and LVEF was 70%. Cardiotoxicity risk is increased with an increase in cumulative lifetime dose. Symptoms of cardiotoxicity discussed were shortness of breath and edema. Cardiotoxicity may manifest acutely or late within treatment to months or years after completion. -Sexual and Reproductive Health: There is an increased risk of chemotherapy exposure to your partner when you are on chemo. When sexually active, wear a protective barrier while on chemotherapy. It is important to use control measures while on chemotherapy. -Infertility: Risk for infertility secondary to chemotherapy was screened at today's appointment. Infertility was briefly discussed and was of no concern to the patient at this time. -Hepatotoxicity: There is a risk of toxicity to your liver. Your lab work will be watched closely to determine if this is occurring and any required dose adjustments will be made at that time. -Secondary Malignancies: There is a risk of secondary malignancies such as acute myelogenous leukemia (AML) and myelodysplastic syndromes (MDS) in patients that are treated with anthracyclines and typically occurs within 1-3 years of treatment. -Skin Problems: Some patients may experience a variety of symptoms including: rash, dry/cracked skin, red/inflammed skin, brittle/cracked/yellow nails, red/blistering skin near the areas of radiation, sunburn easily, and itching. Advised patient that they can moisturize their skin daily, use sunscreen, use mild soaps when washing the skin and to avoid products with perfumes, dyes, or alcohol. Regarding fingernails specifically, patient is advised to keep their nails short and trimmed. -Arthralgias: Patients may experience arthralgias and joint pain while on chemotherapy. Patients are encouraged to maintain physical activity and to utilize acetaminophen if they encounter joint pain. With regard to pegfilgrastim induced bone pain/arthralgias, loratadine 10mg po daily is recommended for 5-7 days post injection of pegfilgrastim. -Discoloration of body fluids: Patients may notice discoloration of tears and urine while receiving doxorubicin. Alerted patient to the fact that they may notice tear and body fluid discoloration of red to pink for 1-3 days following doxorubicin. Reinforced that it is not of concern and should be expected. -Extravasation: The patient is receiving a vesicant as part of their chemotherapy regimen. While the risk of extravasation with a port is very low, there is still a risk. Discussed what a vesicant is and that extravasation of a vesicant can lead to severe local tissue injury and necrosis requiring surgical intervention and possible skin grafting. Patient was educated to report any pain or burning at the port site CAROLYN. -Other Toxicities: Electrolyte changes, nephrotoxicity, and pulmonary toxicity: Patient will be monitored closely for toxicities listed. Lab work will be reviewed weekly and the patient will be notified with these changes and if there are changes, may need additional follow up and testing. Patient was given the Standard Chemotherapy Education Binder with appropriate phone numbers and we reviewed symptoms that would prompt a call to the clinic. Upcoming appointments were discussed and patient knows to follow up at the front sight attacher to get print outs of their schedule and the processes to change/cancel an appointment. Consent was reviewed with the patient and signed in my presence. The treating physician will review and sign the consent. Allergies were reviewed: perfumes, phenazopyridine At the end of this discussion, the patient and her family (total of 9 members) verbalized understanding of the provided education and information and all of their questions were answered to their satisfaction. Patient and her family know how to reach me if further questions or concerns come up. Time spent with the patient: 180 minutes, with all 180 minutes being spent counseling on the detailed information above. Maria Guadalupe Hebert, PharmD, OP MARIA GUADALUPE HEBERT Apr 16, 2018 15:22
[2018-04-22 11:16] VITALS: BP 136/94
[2018-04-23 12:05] VITALS: BP 141/93
[2018-04-23 12:39] LABS: PLATELET COUNT, AUTOMATED 127 K/uL (150-450)
[2018-04-23] MEDS: PALONOSETRON 0.25 MG/5 ML VIAL IVP PRN (13:11)
[2018-04-23] MEDS: DEXAMETHASONE SOD PHOS 10MG/ML IVP PRN (13:12)
[2018-04-23] MEDS: FOSAPREPITANT DIM 150 MG/5 ML 150 MG in NS(*) 0.9% 250 ML BAG 245 ML IVPB PRN (13:32)
--- NOTE | 2018-04-23 14:39 | Medical Nutrition Therapy ---
Nutrition Anthropometrics Height (Inches): 61.50 Height (Calculated Centimeters: 156.2100 Weight (Pounds): 228 (patient states her usual wt is ~220 lbs) Nutritional Education Nutrition Education Topic: Other (eating hints during cancer treatment ) Learning Readiness: Interested Teaching Methods: Discussion, Handout Response to Teaching: Verbalize understanding Teaching Recipient: Patient, Family Nutrition Counseling: Reviewed handout on Eating during Cancer Treatment, discussed potential nutrition impact symptoms and encouraged patient to review information if she is experiencing any of the symptoms. Nutrition Monitoring & Eval Nutrition Goals: Eat 75-100% Meal, Drink > 2 liters/day Nutritional Goals Comment: Encouraged weight maintenance during treatment Nutrition Follow-Up: Good Intake Nutrition Monitoring: Patient stated she experienced nausea, constipation and smells bothered her for about 1 week after her first treatment, the symptoms did resolved. RD Patient Assessment Time: 15 minutes (less than 15 minutes ) RD Assessment Type: RD Education Patient Nutrition Acuity: 3-Mild Nutritional Comment: I encouraged the patient to call or let RN know if she would like to discuss any nutrition issues with me. HUMPHREY KAUR RDN, [id number] Apr 23, 2018 14:39
--- NOTE | 2018-04-23 14:57 | ONCOLOGY FOLLOW UP NOTE ---
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 CHIEF COMPLAINT Patient is here today for her second cycle of dose-dense AC adjuvant treatment for her left breast cancer. ONCOLOGY HISTORY Patient is a 72-year-old female who felt a lump in her upper outer quadrant, so the patient had an ultrasound of the left breast done on February 03, 2018, which showed a left breast heterogeneous solid mass at 2 o'clock, measuring 1.7 x 1.6 x 2.2 cm, suspicious for malignancy. Patient had ultrasound-guided biopsy of the left breast mass done on February 15, 2018, and the pathology came back positive for infiltrating ductal carcinoma grade 2. She ended by having left breast lumpectomy and sentinel lymph node biopsy done on March 03, 2018 and the pathology came back positive for 2 x 2 x 2 cm left breast infiltrating ductal carcinoma grade 2/3 with positive lymphovascular invasion. Two out of five sentinel lymph nodes came back positive for metastasis. One of the lymph nodes as an area of macro metastasis measured about 3 mm, ER positive 97.1%, CA negative, HER2/josiah was 1+ not expressed while Ki-67 showed high proliferation at 34.9%. So the patient's tumor was staged as a stage IIA (pT1c pN1a, cM0). 2D echocardiogram showed left ventricular ejection fraction normal at 70%. The patient has started treated with dose-dense AC with Adriamycin and cyclophosphamide on April 09, 2018. HISTORY OF PRESENT ILLNESS Patient is here today for her second cycle of dose-dense AC for her left breast cancer. She is doing fine currently. She developed nausea after her first cycle of chemotherapy and constipation. Her constipation responded very well to prune juice. She has also generalized aches after the Neulasta shot. She has intermittent headache, and she is weak, tired, and fatigued, but currently she is feeling much better. PAST MEDICAL HISTORY 1. Essential tremors. 2. Hypercholesterolemia. PAST SURGICAL HISTORY 1. Left knee replacement. 2. Abdominal surgery for resection of about 15 tumors from the abdomen which were benign. 3. Hysterectomy in 1985. 4. Two wrist surgeries. FAMILY HISTORY Mother had with stage IV breast cancer diagnosed at age 68 years of age. One sister had also stage IV breast cancer diagnosed at age of 61. SOCIAL HISTORY Patient is with four children. 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 She quit smoking in 1973 after one pack a day for 16 years. Occasionally drinks alcohol, but no abuse of illicit drugs. CURRENT MEDICATIONS 1. Colace 100 mg twice daily. 2. Cyclobenzaprine 10 mg three times daily. 3. Levothyroxine 100 mcg daily. 4. Calcium carbonate/vitamin D3 600/200 tablet daily. 5. Hydrochlorothiazide 25 mg daily. 6. Famotidine 20 mg daily. 7. Pravastatin 20 mg daily. 8. Vitamin B12 2500 mcg tablet daily. 9. Percocet 5/325 tablet p.r.n. every six hours. 10. Ibuprofen 800 mg every eight hours. 11. Multivitamin one tablet daily. ALLERGIES FENAZOPIRIDINA, cannot remember the reaction. REVIEW OF SYSTEMS CONSTITUTIONAL: No appetite or weight change. No fever, chills. She has sweating. No recent infection. HEENT: Ears: No tinnitus or hearing problem. Nose: She has nasal discharge. No epistaxis. Throat: No sore throat or mouth ulcers. Eyes: No diplopia or visual changes. RESPIRATORY: No shortness of breath. She has cough. No expectoration or hemoptysis. CARDIOVASCULAR: No chest pain, orthopnea, or paroxysmal nocturnal dyspnea (PND). No edema. No palpitations. GASTROINTESTINAL: She has nausea and constipation after her chemotherapy.. No heartburn or swallowing difficulties. No abdominal pain. No jaundice. No hematemesis, melena, or rectal bleeding. GENITOURINARY: No hematuria or dysuria. MUSCULOSKELETAL: She had generalized aches from Neulasta shot. NEUROLOGICAL: No tingling or numbness in the hands or feet. She has intermittent headache. HEMATOLOGIC/LYMPHATIC: She is weak, tired, and fatigued. SKIN: No skin rash or lumps. PSYCHIATRIC: No anxiety or depression. PHYSICAL EXAMINATION GENERAL: Looks stable. Well developed, well nourished, and in no acute distress. VITAL SIGNS: Blood pressure 141/94, pulse 61 per minute, respirations 16 per minute, temperature 98.9, pulse ox 96% on room air. HEENT: Head: Atraumatic. No sinus tenderness to palpation. Eyes: No icterus or conjunctivitis. Mouth and Throat: No oral thrush or mucositis. NECK: Supple. No cervical or supraclavicular lymphadenopathy. LUNGS: Clear to auscultation and percussion bilaterally. HEART: Regular rate and rhythm. No gallops, murmurs, clicks, or rubs. ABDOMEN: Soft and lax. No tenderness. No hepatosplenomegaly. No masses. EXTREMITIES: No cyanosis, clubbing, or edema. LYMPHATICS: No peripheral lymphadenopathy. NEUROLOGICAL: Conscious, alert, and oriented times three. No focal motor or sensory deficits. PSYCHIATRIC: Mood and affect appear normal. SKIN: No skin rash, bruise, or purpuric eruption. DIAGNOSTIC DATA CBC showed white count 9.1, hemoglobin 13.1, hematocrit 38, platelets 127,000. Chem panel is totally normal. ASSESSMENT 1. Stage IIA (pT1c pN1a cM0) left breast infiltrating ductal carcinoma. Two out of five lymph nodes came back positive for metastasis with one with macro metastasis, measured 0.3 cm. Patient had lumpectomy and sentinel lymph node biopsy done March 03, 2018. ER positive 95.9%, CA negative, HER2/josiah negative, 1+ by immunohistochemistry, and Ki-67 was high at 34.9%. 2D echocardiogram showed normal with left ventricular ejection fraction at 70%. The patient started treatment with dose-dense AC with Adriamycin and cyclophosphamide April 09, 2018. She tolerated the first cycle very well except for nausea, constipation, and some fatigue after her chemotherapy which resolved. I am planning to proceed with her second cycle of dose-dense AC today, and I will see her in two weeks with CBC and chem panel at that time. I will administer Neulasta OBI 6 mg after each cycle of chemotherapy. 2. Chemotherapy-induced thrombocytopenia, currently 127,000. Will continue to monitor. No hematologic intervention is required at the moment. 3. Chemotherapy-induced nausea. Patient was advised to use Compazine and Zofran in alternation every three hours. PLAN 1. Dose-dense AC cycle #2. 2. CBC and chem panel to be checked weekly. 3. Neulasta OBI 6 mg subcutaneously after chemotherapy. 4. Patient to return in two weeks with CBC and chem panel. 5. Patient is to contact us for any new concerns or complaints. MTDD
[2018-04-23] MEDS: HEPARIN FLSH (PORT) 500 UN/5ML IVP PRN (15:31)
[2018-04-23 16:08] VITALS: BP 144/83
[2018-04-29] MEDS: HEPARIN FLSH (PORT) 500 UN/5ML IVP PRN (11:42)
[2018-04-29 11:50] LABS: PLATELET COUNT, AUTOMATED 128 K/uL (150-450)
[2018-04-29 12:19] VITALS: BP 124/84
[2018-05-07 12:05] VITALS: BP 148/90
[2018-05-07] MEDS: DEXAMETHASONE SOD PHOS 10MG/ML IVP PRN (12:49)
[2018-05-07] MEDS: PALONOSETRON 0.25 MG/5 ML VIAL IVP PRN (12:49)
[2018-05-07] MEDS: FOSAPREPITANT DIM 150 MG/5 ML 150 MG in NS(*) 0.9% 250 ML BAG 245 ML IVPB PRN (13:41)
[2018-05-07] MEDS: HEPARIN FLSH (PORT) 500 UN/5ML IVP PRN (15:20)
[2018-05-07 16:32] VITALS: BP 145/86
--- NOTE | 2018-05-08 08:54 | [facility] ONCOLOGY NOTE ---
EVENT DATE: May 08, 2018 DIAGNOSIS Stage IIA (pT1C pN1a cM0) left breast infiltrating ductal carcinoma. CHIEF COMPLAINT Patient is here today for her third cycle of dose-dense AC adjuvant treatment for her left breast cancer. ONCOLOGY HISTORY Patient is a 72-year-old female who felt a lump in her upper outer quadrant, so the patient had an ultrasound of the left breast done on February 03, 2018, which showed a left breast heterogeneous solid mass at 2 o'clock, measuring 1.7 x 1.6 x 2.2 cm, suspicious for malignancy. Patient had ultrasound-guided biopsy of the left breast mass done on February 15, 2018, and the pathology came back positive for infiltrating ductal carcinoma grade 2. She ended by having left breast lumpectomy and sentinel lymph node biopsy done on March 03, 2018 and the pathology came back positive for 2 x 2 x 2 cm left breast infiltrating ductal carcinoma grade 2/3 with positive lymphovascular invasion. Two out of five sentinel lymph nodes came back positive for metastasis. One of the lymph nodes as an area of macro metastasis measured about 3 mm, ER positive 97.1%, NM negative, HER2/josiah was 1+ not expressed while Ki-67 showed high proliferation at 34.9%. So the patient's tumor was staged as a stage IIA (pT1c pN1a, cM0). 2D echocardiogram showed left ventricular ejection fraction normal at 70%. The patient has started treated with dose-dense AC with Adriamycin and cyclophosphamide on April 09, 2018. HISTORY OF PRESENT ILLNESS Patient is here today for her third cycle of dose-dense AC for her left breast cancer. She is doing fine currently. She is complaining of occasional diarrhea. She had musculoskeletal pain two days after her last shot, which got better with Claritin. She has occasional headaches. She is weak, tired and fatigued. PAST MEDICAL HISTORY 1. Essential tremors. 2. Hypercholesterolemia. PAST SURGICAL HISTORY 1. Left knee replacement. 2. Abdominal surgery for resection of about 15 tumors from the abdomen which were benign. 3. Hysterectomy in 1985. 4. Two wrist surgeries. FAMILY HISTORY Mother had with stage IV breast cancer diagnosed at age 68 years of age. One sister had also stage IV breast cancer diagnosed at age of 61. SOCIAL HISTORY Patient is with four children. 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 She quit smoking in 1973 after one pack a day for 16 years. Occasionally drinks alcohol, but no abuse of illicit drugs. CURRENT MEDICATIONS 1. Colace 100 mg twice daily. 2. Cyclobenzaprine 10 mg three times daily. 3. Levothyroxine 100 mcg daily. 4. Calcium carbonate/vitamin D3 600/200 tablet daily. 5. Hydrochlorothiazide 25 mg daily. 6. Famotidine 20 mg daily. 7. Pravastatin 20 mg daily. 8. Vitamin B12 2500 mcg tablet daily. 9. Percocet 5/325 tablet p.r.n. every six hours. 10. Ibuprofen 800 mg every eight hours. 11. Multivitamin one tablet daily. ALLERGIES FENAZOPIRIDINA, cannot remember the reaction. REVIEW OF SYSTEMS CONSTITUTIONAL: No appetite or weight change. No fever, chills. She has sweating. No recent infection. HEENT: Ears: No tinnitus or hearing problem. Nose: She has nasal discharge. No epistaxis. Throat: No sore throat or mouth ulcers. Eyes: No diplopia or visual changes. RESPIRATORY: No shortness of breath. She has cough. No expectoration or hemoptysis. CARDIOVASCULAR: No chest pain, orthopnea, or paroxysmal nocturnal dyspnea (PND). No edema. No palpitations. GASTROINTESTINAL: She has occasional diarrhea. GENITOURINARY: No hematuria or dysuria. MUSCULOSKELETAL: She had musculoskeletal pain two days after her last shot, which got better with Claritin. NEUROLOGICAL: She has occasional headache. HEMATOLOGIC/LYMPHATIC: She is weak, tired, and fatigued. SKIN: No skin rash or lumps. PSYCHIATRIC: No anxiety or depression. PHYSICAL EXAMINATION GENERAL: Looks stable. Well developed, well nourished, and in no acute distress. VITAL SIGNS: Blood pressure 148/90, pulse 61 per minute, respirations 18 per minute, temperature 97.4, pulse ox 94% on room air. HEENT: Head: Atraumatic. No sinus tenderness to palpation. Eyes: No icterus or conjunctivitis. Mouth and Throat: No oral thrush or mucositis. NECK: Supple. No cervical or supraclavicular lymphadenopathy. LUNGS: Clear to auscultation and percussion bilaterally. HEART: Regular rate and rhythm. No gallops, murmurs, clicks, or rubs. ABDOMEN: Soft and lax. No tenderness. No hepatosplenomegaly. No masses. EXTREMITIES: No cyanosis, clubbing, or edema. LYMPHATICS: No peripheral lymphadenopathy. NEUROLOGICAL: Conscious, alert, and oriented times three. No focal motor or sensory deficits. PSYCHIATRIC: Mood and affect appear normal. SKIN: No skin rash, bruise, or purpuric eruption. DIAGNOSTIC DATA CBC showed white count 7.3, hemoglobin 12.9, hematocrit 37.7, platelets 149,000. Chem panel is totally normal except blood sugar 114. ASSESSMENT 1. Stage IIA (pT1c pN1a cM0) left breast infiltrating ductal carcinoma. Two out of five lymph nodes came back positive for metastasis with one with macro metastasis, measured 0.3 cm. Patient had lumpectomy and sentinel lymph node biopsy done March 03, 2018. ER positive 95.9%, NM negative, HER2/josiah negative, 1+ by immunohistochemistry, and Ki-67 was high at 34.9%. 2D echocardiogram showed normal left ventricular ejection fraction at 70%. The patient started treatment with dose-dense AC with Adriamycin and cyclophosphamide April 09, 2018. She is tolerating treatment very well so far. She finished two cycles and she is due today for her third cycle of dose-dense AC. I am planning to proceed with her chemotherapy today and I will see her in two weeks from now with CBC and chem panel and I will check her CBC and chem panel every week and the patient will receive Neulasta 6 mg subcutaneous after each cycle of chemotherapy. She is using the Neulasta OBI the same day of the chemo. 2. Chemotherapy-induced thrombocytopenia, recovered. Current platelet count 149,000. Will continue to monitor. 3. Chemotherapy-induced nausea, under control. 4. Neulasta-induced musculoskeletal pain. We will continue Claritin. PLAN 1. Dose-dense AC cycle #3. 2. CBC and chem panel to be checked weekly. 3. Patient to return in two weeks with CBC and chem panel prior to the next cycle of chemotherapy. 4. Neulasta 6 mg subcutaneously after chemotherapy. 5. Patient is to contact us for any new concerns or complaints. MTDD
[2018-05-13 11:28] VITALS: BP 133/83
[2018-05-13 11:33] LABS: PLATELET COUNT, AUTOMATED 135 K/uL (150-450)
[2018-05-13] MEDS: HEPARIN FLSH (PORT) 500 UN/5ML IVP PRN (13:31)
[2018-05-21 12:04] VITALS: BP 147/91
[2018-05-21] MEDS: DEXAMETHASONE SOD PHOS 10MG/ML IVP PRN (13:25)
[2018-05-21] MEDS: PALONOSETRON 0.25 MG/5 ML VIAL IVP PRN (13:25)
[2018-05-21] MEDS: FOSAPREPITANT DIM 150 MG/5 ML 150 MG in NS(*) 0.9% 250 ML BAG 245 ML IVPB PRN (14:06)
[2018-05-21] MEDS: HEPARIN FLSH (PORT) 500 UN/5ML IVP PRN (15:43)
[2018-05-21] MEDS: NS(*) 0.9% 500 ML BAG 500 ML IV PRN (15:44)
[2018-05-21 15:57] VITALS: BP 138/86
[2018-05-28 13:33] VITALS: BP 123/75
[2018-05-28 13:53] LABS: PLATELET COUNT, AUTOMATED 170 K/uL (150-450)
[2018-05-28] MEDS: HEPARIN FLSH (PORT) 500 UN/5ML IVP PRN (14:00)
[2018-06-14 12:17] VITALS: BP_SYST 134
[2018-06-14] MEDS: NS(*) 0.9% 500 ML BAG 500 ML IV PRN (13:00)
[2018-06-14] MEDS: FAMOTIDINE 10 MG/ML SDV IV PRN (13:09)
[2018-06-14] MEDS: DEXAMETHASONE SOD PHOS 10MG/ML IVP PRN (13:12)
[2018-06-14] MEDS: HEPARIN FLSH (PORT) 500 UN/5ML IVP PRN (15:14)
--- NOTE | 2018-06-14 15:34 | Pharmacy Note ---
Pharmacy Note Note: Clinical Pharmacist Note: Chemotherapy Education Visit Date: 06/14/18 Chemotherapy Regimen: Weekly Paclitaxel x 12 weeks The regimen includes paclitaxel given weekly x 12 weeks. The schedule of treatment administration was explained in detail to the patient in regards to lab visits, timing and sequence of premedications and cornelius motherapy, followed by any supportive medications to be given. Discussed the purpose of the port and why we administer chemotherapy through a port. Port placed prior to chemo ed appointment. Patient's diagnosis, treatment plan, and intent of treatment along with goals are outlined on the signed consent form, that was reviewed and signed at the end of this appointment. The goal is curative treatment (recovery from disease). The potential for drug/drug interaction and drug/food interactions were explai tyrel to the patient. A medication reconciliation was reviewed by the pharmacist today. We reviewed and discussed toxicities of supportive care medications and how to appropriately use supportive medications including the schedule of anti-emetics. These medications include the following: Take home medications: ondansetron, prochlorperazine Pre-medications: dexamethasone, diphenhydramine, famotidine Supportive Medications: none We have also discussed the potential for long and short term side effects of chemotherapy including, but not limited to the side effects outlined below: -Low WBCs or neutropenia: Patient may experience bone marrow toxicity that would increase their risk for infection. Patient is aware to look for signs and symptoms of infection (e.g. fever of higher than 100.4F, chills, sore throat, etc.) and knows what number to call and when to contact the clinic. Advised patient of things they can do such as wash hands with soap and water often, avoid people who are sick, and avoid crowds during times of low blood counts (typically 7-10 days post chemotherapy). Discussed the need for pegfilgrastim with dose dense AC to reduce the risk of neutropenia. - Low RBCs or anemia: Anemia is when you don't have enough red blood cells to carry oxygen through your body, which causes fatigue, weakness, lightheadedness, pale skin, SOB, or headaches. Discussed the importance of getting enough restful sleep at night and eating a diet rich in iron. Lab values will be closely monitored to check your RBCs. Advised patient to contact the clinic if they have a fast heart rate, dizziness, or lightheadedness. -Low platelet counts or thrombocytopenia: Patient may experience low platelets which can lead to increased risk of bleeding, easy bruising, black or bloody stools, or small red or purple spots on the skin. Platelets help blood to clot and if your platelets are low enough, bleeding may not stop after a few minutes. Excessive bleeding or bruising, red spots on your skin or new onset headaches require a phone call to the clinic. - Fatigue (feeling tired): Some patients may experience fatigue, or feel tired, weak, low energy, drained or exhausted. You will experience fatigue after chemotherapy, but the amounts for each person and chemotherapy will differ. Advised patient to stay active as much as they can with light exercise, take short naps if needed, get a restful night of sleep, and eat a well-balanced diet. Call the clinic if you are unable to get out of bed or do typical daily activities, have shortness of breath, or have trouble walking small distances. -Nausea or vomiting: Most patients may experience some level of nausea (feeling queasy or sick to your stomach) or vomiting. Advised patient to take their anti-nausea medications as prescribed, drink plenty of fluids, eat several small meals throughout the day, eat bland easy to digest foods, and speak to our community pharmacist if they have questions. Call the clinic if the nausea or vomiting is not eased by your medications and lasts 12 hours or longer, or if unable to eat or drink, or keep medicines down. We did discuss that paclitaxel is low risk for N/V and reviewed anti-emetic schedule. - Appetite changes (eating less or more): You may experience a decrease or increase in your appetite that might last a day, weeks or months. Advised patient to set a schedule for eating and drink high protein drinks to maintain calories. Ask your doctor or nurse for a community pharmacist consult to help manage your appetite changes or if you have concerns about your appetite changes. Contact the clinic if you notice a change in weight and if you are unable to take in more than a few bites of food or sips of liquid at mealtimes. Favorite foods may also taste different or may not be pleasing. -Hair loss or alopecia: Hair loss typically begins 2-3 weeks after the first chemotherapy treatment and can range from thinning to full body hair loss, and can occur anywhere on your body. Your hair may come out a little at a time or in clumps and your scalp may feel tender before the hair falls out. In the meantime, you can cut your hair or choose a wig- protect your head and wear sunscreen and mild shampoo and brushes. The hair will usually grow back about 2-3 months after you finish chemotherapy and may be a different texture or color when it returns. -Mouth sores and oral care (mucositis or stomatitis): Patient was informed that they may experience taste changes, dry mouth, and potential mouth sores due to the chemotherapy. The best way to prevent and treat mouth sores is to do routine mouth care each day. If mouth sores occur, use mouth rinses with baking soada, alst and warm water after meals and before bed (dissolve 2 TBSP of baking soda and 1/2 tsp of salt in 8 oz of warm water--swish and spit). Avoid mouthwashes with alcohol and spicy food if mouth sores exist. If dry mouth occurs, sucking on ice chips or sugar free hard candy can help. -Neuropathy (numbness-pins and needles-tingling): Patient may experience acute and chronic neuropathy that can potentially be irreversible due to the chemotherapy. The patient is advised to report symptoms to the clinic if they experience burning, tingling, and numbness in the hands, feet, face or mouth. -Cardiotoxicity: Patient may experience cardiotoxicity as a result of chemotherapy. LVEF was evaluated at baseline with an echocardiogram on 04/05/18 and LVEF was 70%. Cardiotoxicity risk is increased with an increase in cumulative lifetime dose. Symptoms of cardiotoxicity discussed were shortness of breath and edema. Cardiotoxicity may manifest acutely or late within treatment to months or years after completion. -Hepatotoxicity: There is a risk of toxicity to your liver. Your lab work will be watched closely to determine if this is occurring and any required dose adjustments will be made at that time. -Skin Problems: Some patients may experience a variety of symptoms including: rash, dry/cracked skin, red/inflammed skin, brittle/cracked/yellow nails, red/blistering skin near the areas of radiation, sunburn easily, and itching. A dvised patient that they can moisturize their skin daily, use sunscreen, use mild soaps when washing the skin and to avoid products with perfumes, dyes, or alcohol. Regarding fingernails specifically, patient is advised to keep their nails short and trimmed. -Arthralgias: Patients may experience arthralgias and joint pain while on chemotherapy. Patients are encouraged to maintain physical activity and to utilize acetaminophen if they encounter joint pain. With regard to pegfilgrastim induced bone pain/arthralgias, loratadine 10mg po daily is recommended for 5-7 days post injection of pegfilgrastim. -Extravasation: The patient is receiving a vesicant as part of their chemotherapy regimen. While the risk of extravasation with a port is very low, there is still a risk. Discussed what a vesicant is and that extravasation of a vesicant can lead to severe local tissue injury and necrosis requiring surgical intervention and possible skin grafting. Patient was educated to report any pain or burning at the port site CAROLYN. -Infusion Reaction: Patient may experience an infusion reaction while paclitaxel is infusing. Anaphylaxis and severe hypersensitivity reactions (dyspnea requiring bronchodilators, hypotension requiring treatment, angioedema, and/or generalized urticaria) have occurred in 2% to 4% of patients in clinical studies. Pt will be premedicated with corticosteroids, diphenhydramine, and H2 antagonists prior to infusion. If severe hypersensitivity occurs, infusion will be stopped and not rechallenged. Patient was encouraged to notify RN immediately with the following symptoms: flushing, skin reactions, dyspnea, hypotension, or tachycardia) do not require interruption of treatment. Patient was previously given the Standard Chemotherapy Education Binder with appropriate phone numbers and we reviewed symptoms that would prompt a call to the clinic. Upcoming appointments were discussed and patient knows to follow up at the front desk receptionist to get print outs of their schedule and the processes to change/cancel an appointment. Consent was reviewed with the patient and signed in my presence. The treating physician will review and sign the consent. Allergies were reviewed: Perfumes and phenazopyridine. At the end of this discussion, the patient and her family verbalized understanding of the provided education and information and all of their questions were answered to their satisfaction. Patient knows how to reach me if further questions or concerns come up. Time spent with the patient: 60 minutes, with all 60 minutes being spent counseling on the detailed information above. Ernesto Hebert, PharmD, BCOP ERNESTO HEBERT Jun 14, 2018 14:59
[2018-06-15 11:29] VITALS: BP 127/79
--- NOTE | 2018-06-15 21:17 | ONCOLOGY FOLLOW UP NOTE ---
EVENT DATE: June 15, 2018 CHIEF COMPLAINT "I have a rash on my face." HISTORY OF PRESENT ILLNESS Patient is a 72-year-old female who is currently undergoing treatment for stage IIA (pT!c pN1a cM0) left breast infiltrating ductal carcinoma. She has completed four cycles of dose-dense Adriamycin and Cytoxan. She began weekly Taxol on 06/14/18. She presents today with a mildly erythematous rash on her lower face. It is somewhat pruritic, but rash is not raised. She denies any shortness of breath or chest discomfort. She had no issues with infusion reaction during yesterday's treatment. She does complain of some mild fatigue, but is grateful that she has had no nausea associated with the Taxol. She denies any numbness or tingling in her extremities. ONCOLOGY HISTORY Patient is a 72-year-old female who noted a lump in her left upper-outer quadrant. Ultrasound of the breast on 02/03/18 showed a heterogeneous solid mass at 2 o'clock, measuring 1.7 x 1.6 x 2.2 cm, suspicious for malignancy. She underwent biopsy on 02/15/18, showing infiltrating ductal carcinoma, grade 2. She underwent left lumpectomy and sentinel lymph node biopsy on 03/03/18 with pathology positive for a 2 x 2 x 2 cm left breast infiltrating ductal carcinoma, grade 2/3, with lymphovascular invasion noted. Two of five sentinel nodes positive for malignancy. ER-positive 97.1%, MO-negative, HER2/josiah negative. Ki-67 showed a high proliferation at 34.9%. Completed four cycles of dose-dense Adriamycin and Cytoxan from 03/30/18 through 05/21/18. Began weekly Taxol on 06/14/18. MEDICAL HISTORY 1. Left breast cancer. 2. Essential tremors. 3. Hyperlipidemia. SURGICAL HISTORY 1. Left lumpectomy 03/03/18. 2. Left knee replacement. 3. Abdominal surgery for resection of 15 benign tumors from the abdomen. 4. Hysterectomy 1985. 5. Two wrist surgeries. FAMILY HISTORY Mother of stage IV breast cancer diagnosed at age 68. One sister also had stage IV breast cancer diagnosed at age 61. SOCIAL HISTORY Patient is with four children. She is retired. She quit smoking in 1973 after one pack a day for 16 years. She occasionally drinks alcohol, but no use of illicit drugs. CURRENT MEDICATIONS 1. Colace 100 mg twice daily. 2. Cyclobenzaprine 10 mg three times daily. 3. Levothyroxine 100 mcg daily. 4. Calcium carbonate/vitamin D3 600/200 tablet daily. 5. Hydrochlorothiazide 25 mg daily. 6. Famotidine 20 mg daily. 7. Pravastatin 20 mg daily. 8. Vitamin B12 2500 mcg tablet daily. 9. Percocet 5/325 tablet p.r.n. every six hours. 10. Ibuprofen 800 mg every eight hours. 11. Multivitamin one tablet daily. ALLERGIES FENAZOPIRIDINA, cannot remember the reaction. REVIEW OF SYSTEMS A 12-point review of systems is performed and is negative except as stated above. PHYSICAL EXAMINATION VITAL SIGNS: Weight 102.3 kg. BP 129/79, P 84, R 16, temp 97.3, O2 sat 92%. GENERAL: Patient is a well-developed, well-nourished female in no acute distress. HEAD: Normocephalic, atraumatic. Alopecia noted. EYES: Sclerae anicteric. MOUTH: Slightly dry mucous membranes without lesions. NECK: No palpable adenopathy. LUNGS: Clear bilaterally. CARDIOVASCULAR: Heart rate regular, 84 per minute without murmur, S3, or S4. BREASTS: Status post left lumpectomy with mild scar tissue/seroma present. No evidence of infection. Incisions are well healed. EXTREMITIES: No edema. NEUROLOGIC: Nonfocal. SKIN: She has a mildly erythematous rash on her lower face and somewhat on her scalp. This area is not raised, but more of a flushing noted. IMPRESSION AND PLAN The patient is a 72-year-old female with stage IIA infiltrating ductal carcinoma of the left breast. She underwent lumpectomy on 03/03/18, completed four cycles of dose-dense Adriamycin and Cytoxan from 04/09/18 through 05/21/18. She began weekly Taxol on 06/14/18. 1. Breast cancer. Patient is seen after receiving her first cycle of Taxol yesterday. She tolerated this fairly well. She did not have an infusion reaction. 2. Skin rash. Presents with some mild flushing/erythema of her face and scalp. It is slightly pruritic. I recommended increased moisturizing, use of sunscreen, and Claritin 10 mg daily for pruritus. She can also use Benadryl at bedtime if needed. 3. Follow up in one week for cycle #2 of treatment. MTDD
[2018-06-18 14:10] VITALS: BP 122/86
--- NOTE | 2018-06-19 20:44 | ONCOLOGY FOLLOW UP NOTE ---
EVENT DATE: June 18, 2018 CHIEF COMPLAINT Sudden onset of neuropathy. 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 She completed four cycles of Adriamycin and Cytoxan and began weekly Taxol on June 14, 2018. She was seen here on June 15, 2018 with a mild erythematous rash on her face but this has resolved. It is no longer pruritic. She is moisturizing and using sunscreen. Today, she presents and feels she has fairly significant neuropathy. She describes this as "stinging" in her legs. She also feels she has more knee pain. She denies any numbness or tingling or change in sensation to her fingertips or tips of her toes. She also describes what she feels like is restless leg syndrome in that her legs are "twitching". She has been on oxycodone under the direction of Dr. Serrano but is out of this and presents wondering about pain medication. ONCOLOGY HISTORY Patient is a 72-year-old female who noted a lump in her left upper-outer quadrant. Ultrasound of the breast on 02/03/18 showed a heterogeneous solid mass at 2 o'clock, measuring 1.7 x 1.6 x 2.2 cm, suspicious for malignancy. She underwent biopsy on 02/15/18, showing infiltrating ductal carcinoma, grade 2. She underwent left lumpectomy and sentinel lymph node biopsy on 03/03/18 with pathology positive for a 2 x 2 x 2 cm left breast infiltrating ductal carcinoma, grade 2/3, with lymphovascular invasion noted. Two of five sentinel nodes positive for malignancy. ER-positive 97.1%, ID-negative, HER2/josiah negative. Ki-67 showed a high proliferation at 34.9%. Completed four cycles of dose-dense Adriamycin and Cytoxan from 03/30/18 through 05/21/18. Began weekly Taxol on 06/14/18. MEDICAL HISTORY 1. Left breast cancer. 2. Essential tremors. 3. Hyperlipidemia. SURGICAL HISTORY 1. Left lumpectomy 03/03/18. 2. Left knee replacement. 3. Abdominal surgery for resection of 15 benign tumors from the abdomen. 4. Hysterectomy 1985. 5. Two wrist surgeries. FAMILY HISTORY Mother of stage IV breast cancer diagnosed at age 68. One sister also had stage IV breast cancer diagnosed at age 61. SOCIAL HISTORY Patient is with four children. She is retired. She quit smoking in 1973 after one pack a day for 16 years. She occasionally drinks alcohol, but no use of illicit drugs. CURRENT MEDICATIONS 1. Colace 100 mg twice daily. 2. Cyclobenzaprine 10 mg three times daily. 3. Levothyroxine 100 mcg daily. 4. Calcium carbonate/vitamin D3 600/200 tablet daily. 5. Hydrochlorothiazide 25 mg daily. 6. Famotidine 20 mg daily. 7. Pravastatin 20 mg daily. 8. Vitamin B12 2500 mcg tablet daily. 9. Percocet 5/325 tablet p.r.n. every six hours. 10. Ibuprofen 800 mg every eight hours. 11. Multivitamin one tablet daily. ALLERGIES FENAZOPIRIDINA, cannot remember the reaction. REVIEW OF SYSTEMS A 12-point review of systems is performed and is negative except as stated above. PHYSICAL EXAMINATION VITAL SIGNS: Weight 102.3 kg. BP 122/86, P 80, R 16, temp 99, O2 sat 90%. GENERAL: Patient is a well-developed, well-nourished female in no acute distress. She is somewhat anxious on exam. HEAD: Normocephalic, atraumatic. EYES: Sclerae anicteric. MOUTH: Slightly dry mucous membranes without lesions. LUNGS: Clear bilaterally. CARDIOVASCULAR: Heart rate regular, 80 per minute without murmur, S3, or S4. EXTREMITIES: No edema. NEUROLOGIC: Nonfocal. SKIN: Previous erythematous rash has resolved. LABORATORY DATA No lab today. IMPRESSION AND PLAN The patient is a 72-year-old female with stage IIA infiltrating ductal carcinoma of the left breast. She underwent lumpectomy on March 03, 2018, completed four cycles of dose-dense Adriamycin and Cytoxan from April 09, 2018 through May 21, 2018. She began weekly Taxol on June 14, 2018. . 1. Breast cancer. Patient will receive cycle #2 of weekly Taxol on June 21, 2018. 2. Skin rash. She presented the day after her first cycle with a mildly erythematous and slightly pruritic rash on her face. This has completely resolved. She is no longer needing Claritin for pruritus. 3. Neuropathy. Describes neuropathy pain as a "stinging in her legs" as well as bilateral knee pain. She denies any numbness and tingling to her fingertips or tips of her toes. She also feels like her legs are "twitching". We reviewed that Taxol-related neuropathy would likely not occur this quickly and that we usually see this later in the treatment if it were to occur. I recommended she take vitamin B6 50 mg daily and Alpha lipoic acid 1000 mg daily. As she is not sleeping well because of her legs "twitching and moving", will prescribe gabapentin 100 mg at bedtime. I have asked her to discuss this with Dr. Serrano, who prescribes her pain medication. 4. Follow up on June 21, 2018 for cycle #2 of treatment. MTDD
[2018-06-21 12:30] VITALS: BP 122/82
[2018-06-21] MEDS: diphenhydrAMINE 50 MG/ML VIAL IVP PRN (12:43)
[2018-06-21] MEDS: DEXAMETHASONE SOD PHOS 10MG/ML IVP PRN (12:43)
[2018-06-21] MEDS: FAMOTIDINE 10 MG/ML SDV IV PRN (12:43)
[2018-06-21] MEDS: NS(*) 0.9% 500 ML BAG 500 ML IV PRN (12:44)
[2018-06-21] MEDS: HEPARIN FLSH (PORT) 500 UN/5ML IVP PRN (12:44)
--- NOTE | 2018-06-22 18:36 | ONCOLOGY FOLLOW UP NOTE ---
EVENT DATE: June 21, 2018 CHIEF COMPLAINT Patient is seen for cycle #2 of Taxol. HISTORY OF PRESENT ILLNESS Patient is a 72-year-old female undergoing treatment for stage IIA (pT1c pN1a cM0) left breast infiltrating ductal carcinoma. She completed four cycles of Adriamycin and Cytoxan and began weekly Taxol on 06/14/18. She presents today for cycle #2 of Taxol. When seen last week, she developed a mild erythematous flushing on her face which resolved within a day. She then presented on 06/18/18 with what she relayed as neuropathy. She described this as "stinging" in her legs as well as bilateral knee pain. She did not have any numbness or tingling in her fingertips or tips of the toes. I recommended vitamin B6 and alpha lipoic acid. She also described feeling that her legs were "twitching." Gabapentin 100 mg at bedtime was prescribed for this. She states she took two doses, but then developed GI issues, so stopped it. She believes her "neuropathy" resolved as she took the inserts out of her shoes. Today, she presents and feels well. She is not as concerned about cycle #2, and I have attempted to reassure her. ONCOLOGY HISTORY Patient is a 72-year-old female who noted a lump in her left upper-outer quadrant. Ultrasound of the breast on 02/03/18 showed a heterogeneous solid mass at 2 o'clock, measuring 1.7 x 1.6 x 2.2 cm, suspicious for malignancy. She underwent biopsy on 02/15/18, showing infiltrating ductal carcinoma, grade 2. She underwent left lumpectomy and sentinel lymph node biopsy on 03/03/18 with pathology positive for a 2 x 2 x 2 cm left breast infiltrating ductal carcinoma, grade 2/3, with lymphovascular invasion noted. Two of five sentinel nodes positive for malignancy. ER-positive 97.1%, NE-negative, HER2/josiah negative. Ki-67 showed a high proliferation at 34.9%. Completed four cycles of dose-dense Adriamycin and Cytoxan from 03/30/18 through 05/21/18. Began weekly Taxol on 06/14/18. MEDICAL HISTORY 1. Left breast cancer. 2. Essential tremors. 3. Hyperlipidemia. SURGICAL HISTORY 1. Left lumpectomy 03/03/18. 2. Left knee replacement. 3. Abdominal surgery for resection of 15 benign tumors from the abdomen. 4. Hysterectomy 1985. 5. Two wrist surgeries. FAMILY HISTORY Mother of stage IV breast cancer, diagnosed at age 68. One sister also had stage IV breast cancer, diagnosed at age 61. SOCIAL HISTORY Patient is with four children. She is retired. She quit smoking in 1973 after one pack a day for 16 years. She occasionally drinks alcohol, but no use of illicit drugs. CURRENT MEDICATIONS 1. Colace 100 mg twice daily. 2. Cyclobenzaprine 10 mg three times daily. 3. Levothyroxine 100 mcg daily. 4. Calcium carbonate/vitamin D3 600/200 tablet daily. 5. Hydrochlorothiazide 25 mg daily. 6. Famotidine 20 mg daily. 7. Pravastatin 20 mg daily. 8. Vitamin B12, 2500 mcg tablet daily. 9. Percocet 5/325 tablet p.r.n. every six hours. 10. Ibuprofen 800 mg every eight hours. 11. Multivitamin one tablet daily. 12. Vitamin B6 50 mg daily. 13. Alpha lipoic acid 1000 mg daily. 14. Gabapentin 100 mg at bedtime p.r.n. ALLERGIES PYRIDIUM, cannot remember the reaction. REVIEW OF SYSTEMS A 12-point review of systems is performed and is negative except as stated above. PHYSICAL EXAMINATION VITAL SIGNS: Weight 105.3 kg. BP 122/82, P 64, R 16, temp 98.4, O2 sat 92%. GENERAL: Patient is a well-developed, well-nourished female in no acute distress. HEAD: Normocephalic, atraumatic. EYES: Sclerae anicteric. MOUTH: Moist mucous membranes, without lesions. LUNGS: Clear bilaterally. CARDIOVASCULAR: Heart rate regular, 64 per minute. EXTREMITIES: No edema. NEUROLOGIC: Nonfocal. SKIN: No rash noted. LABORATORIES CBC today reveals WBC of 4.8, ANC of 2.9, hemoglobin 12.5, hematocrit 36.6, platelets 202,000. CMP is within normal limits. IMPRESSION AND PLAN The patient is a 72-year-old female with stage IIA infiltrating ductal carcinoma of the left breast. She underwent lumpectomy on March 03, 2018. She completed four cycles of dose-dense Adriamycin and Cytoxan from 04/09/18 through 05/21/18. She began weekly Taxol on 06/14/18. 1. Breast cancer. Cycle #2 of weekly Taxol today. 2. Skin rash. This occurred the day after cycle #1. It was more of a flushing and has since resolved. I recommended continued moisturizing as well as sunscreen. 3. "Neuropathy." Described this as a "stinging" in both her legs as well as some bilateral knee pain. These symptoms have resolved as she removed the inserts from her shoes. I recommended she continue with preventative vitamin B6 and alpha lipoic acid. She had also been prescribed gabapentin 100 mg at bedtime for what sounded like restless leg syndrome, but she is choosing not to take this due to gastrointestinal issues. 4. Follow up with Dr. Serrano on for her pain medications. 5. Follow up in one week for cycle #3 of treatment. MTDD
[~2018-06-28] VITALS: Ht 156.2 cm; Wt 105.1 kg
[~2018-06-28 12:00] MED LIST changes: +ALTEPLASE RECOMB 2 MG VIAL IVP PRN; +CYCLOPHOSPHAMIDE IVPB ONE; +DEXTROSE 5%(*) 100 ML BAG 100 ML IVPB PRN; +DOXOrubicin 50 MG/25 ML VIAL IVP ONE; +GABA-547 PO; +LIDOCAINE/SOD BICARB 8.4% SYR ID PRN; +NS 0.9% IVPB ONE; +NS(*) 0.9% 100 ML BAG 100 ML IVPB PRN; +PACLITAXEL IVPB ONE; +PEGFILGRASTIM 6 MG/0.6 ML KIT SUBQ ONE; +PROMETHAZINE 25 MG/ML 1 ML AMP IVP ONE; +WATER FOR INJ,STERILE 20 ML IVP PRN; +[UNRECOGNIZED DRUG - OTHER] IVPB ONE
[2018-06-28 12:11] VITALS: BP 128/82
[2018-06-28 12:29] LABS: PLATELET COUNT, AUTOMATED 160 K/uL (150-450)
[2018-06-28] MEDS: DEXAMETHASONE SOD PHOS 10MG/ML IVP PRN (12:54)
[2018-06-28] MEDS ORDERED: PACLITAXEL IVPB PRN (12:55)
[2018-06-28] MEDS ORDERED: NS 0.9% IVPB PRN (12:55)
[2018-06-28] MEDS: FAMOTIDINE 10 MG/ML SDV IV PRN (12:58)
[2018-06-28] MEDS: diphenhydrAMINE 50 MG/ML VIAL IVP PRN (13:00)
[2018-06-28] MEDS: NS(*) 0.9% 500 ML BAG 500 ML IV PRN (13:01)
[2018-06-28 14:41] VITALS: BP 140/100
[2018-06-28] MEDS: HEPARIN FLSH (PORT) 500 UN/5ML IVP PRN (14:57)
--- NOTE | 2018-06-29 14:52 | ONCOLOGY FOLLOW UP NOTE ---
EVENT DATE: June 28, 2018 CHIEF COMPLAINT Followup for cycle #3 of Taxol. HISTORY OF PRESENT ILLNESS Patient is a 72-year-old female undergoing treatment for stage IIA (pT1c pN1a cM0) left breast infiltrating ductal carcinoma. She completed four cycles of Adriamycin and Cytoxan and began weekly Taxol on 06/14/18. She is seen today for cycle #3. She is doing well in terms of any side effects. She initially had some flushing, but this has resolved. She called last week with complaints of diarrhea, but this also resolved. Her chronic pain is under good control under the management of Dr. Serrano. She does complain of some numbness and tingling in her feet, legs, and hands, but this resolves after several days. She otherwise denies any new complaints. ONCOLOGY HISTORY Patient is a 72-year-old female who noted a lump in her left upper-outer quadrant. Ultrasound of the breast on 02/03/18 showed a heterogeneous solid mass at 2 o'clock, measuring 1.7 x 1.6 x 2.2 cm, suspicious for malignancy. She underwent biopsy on 02/15/18, showing infiltrating ductal carcinoma, grade 2. She underwent left lumpectomy and sentinel lymph node biopsy on 03/03/18 with pathology positive for a 2 x 2 x 2 cm left breast infiltrating ductal carcinoma, grade 2/3, with lymphovascular invasion noted. Two of five sentinel nodes positive for malignancy. ER-positive 97.1%, [place]-negative, HER2/josiah negative. Ki-67 showed a high proliferation at 34.9%. Completed four cycles of dose-dense Adriamycin and Cytoxan from 03/30/18 through 05/21/18. Began weekly Taxol on 06/14/18. MEDICAL HISTORY 1. Left breast cancer. 2. Essential tremors. 3. Hyperlipidemia. SURGICAL HISTORY 1. Left lumpectomy 03/03/18. 2. Left knee replacement. 3. Abdominal surgery for resection of 15 benign tumors from the abdomen. 4. Hysterectomy 1985. 5. Two wrist surgeries. FAMILY HISTORY Mother of stage IV breast cancer, diagnosed at age 68. One sister also had stage IV breast cancer, diagnosed at age 61. SOCIAL HISTORY Patient is with four children. She is retired. She quit smoking in 1973 after one pack a day for 16 years. She occasionally drinks alcohol, but no use of illicit drugs. CURRENT MEDICATIONS 1. Colace 100 mg twice daily. 2. Cyclobenzaprine 10 mg three times daily. 3. Levothyroxine 100 mcg daily. 4. Calcium carbonate/vitamin D3 600/200 tablet daily. 5. Hydrochlorothiazide 25 mg daily. 6. Famotidine 20 mg daily. 7. Pravastatin 20 mg daily. 8. Vitamin B12, 2500 mcg tablet daily. 9. Percocet 5/325 tablet p.r.n. every six hours. 10. Ibuprofen 800 mg every eight hours. 11. Multivitamin one tablet daily. 12. Vitamin B6 50 mg daily. 13. Alpha lipoic acid 1000 mg daily. 14. Gabapentin 100 mg at bedtime p.r.n. ALLERGIES PYRIDIUM, cannot remember the reaction. REVIEW OF SYSTEMS A 12-point review of systems is performed and is negative except as stated above. PHYSICAL EXAMINATION VITAL SIGNS: Weight 105.1 kg. BP 140/92, P 80, R 16, temp 98.1, O2 sat 90%. GENERAL: Patient is a well-developed, well-nourished female in no acute distress. HEAD: Normocephalic, atraumatic. EYES: Sclerae anicteric. MOUTH: Moist mucous membranes. No lesions noted. LUNGS: Clear bilaterally. CARDIOVASCULAR: Heart rate regular, 80 per minute, without murmur, S3, or S4. EXTREMITIES: No edema. NEUROLOGIC: Nonfocal. SKIN: No rash noted. LABORATORIES CBC today reveals a WBC of 5.7, hemoglobin 11.6, hematocrit 34.0, platelets 160,000. CMP is within normal limits except for a nonfasting glucose of 162. IMPRESSION AND PLAN The patient is a 72-year-old female with stage IIA infiltrating ductal carcinoma of the left breast. She underwent lumpectomy on 03/03/18. She completed four cycles of dose-dense Adriamycin and Cytoxan from 04/09/18 through 05/21/18. She began weekly Taxol on 06/14/18. 1. Breast cancer. Cycle #3 of weekly Taxol today. She is tolerating this well. 2. Neuropathy. She does complain of some mild numbness and tingling in her feet, fingertips, and legs which occurs after treatment. This resolves quickly. She also describes what sounds like restless leg syndrome, but no treatment is being given. 3. Gastrointestinal. Complained of diarrhea last week. She states this resolved in one day. 4. Chronic pain. Well managed per Dr. Serrano on current regimen. 5. Follow up in one week for cycle #4 of treatment. MTDD
== END 2018-06-29 ==
LOC: ONC 12:00
PROVIDERS: ATTEND Internal Medicine Hematology
DX: Z51.11 Encounter for antineoplastic chemotherapy (principal); C50.912 Malignant neoplasm of unspecified site of left female breast; Z17.0 Estrogen receptor positive status [ER+]; Z79.899 Other long term (current) drug therapy; R53.1 Weakness; R53.83 Other fatigue; R05 Cough; E78.00 Pure hypercholesterolemia, unspecified; G62.9 Polyneuropathy, unspecified
CPT/HCPCS: 36415; 36591; 85025; 85027; 96365; 96367; 96368; 96372; 96375; 96411; 96413; G0463; J1100; J1200; J1453; J1642; J2469; J2505; J2550; J3490; J7040; J7050; J9000; J9070; J9267; 82040; 82247; 82310; 82374; 82435; 82565; 82947; 84075; 84132; 84155; 84295; 84450; 84460; 84520; 93306; 99202; 99212; S0028

== ENCOUNTER → 2018-07-30 | Outpatient (CLI) | payer MEDICARE ==
[~2018-07-30] MED LIST changes: -ALTEPLASE RECOMB 2 MG VIAL IVP PRN; +AZIT-1 PO; -CYCLOPHOSPHAMIDE IVPB ONE; -DEXTROSE 5%(*) 100 ML BAG 100 ML IVPB PRN; -DOXOrubicin 50 MG/25 ML VIAL IVP ONE; -LIDOCAINE/SOD BICARB 8.4% SYR ID PRN; -NS 0.9% IVPB ONE; -NS(*) 0.9% 100 ML BAG 100 ML IVPB PRN; -PACLITAXEL IVPB ONE; -PEGFILGRASTIM 6 MG/0.6 ML KIT SUBQ ONE; -PROMETHAZINE 25 MG/ML 1 ML AMP IVP ONE; -WATER FOR INJ,STERILE 20 ML IVP PRN; -[UNRECOGNIZED DRUG - OTHER] IVPB ONE
--- NOTE | 2018-07-30 14:58 | RADIOLOGY IMAGING REPORT ---
FACILITY: [facility] - [place] PATIENT NAME: Karin Stovall : 1945 MR: [id number] V: [id number] EXAM DATE: ORDERING PHYSICIAN: NITA MENDEZ TECHNOLOGIST: Location: [facility] [place] Patient: Karin Stovall : 1945 Visit/Account:[id number] Date of Sevice: 07/30/2018 EXAMINATION: Chest radiographs 2 views HISTORY: Cough, shortness of breath. On chemotherapy. COMPARISON: 04/14/2018. FINDINGS: PA and lateral views of the chest are submitted. Lines/tubes: Right IJ central venous port with the tip overlying the cavoatrial junction. Lungs/pleura: There are a few coarse streaky opacities at the left lung base which are new. No foca l consolidation or pleural effusion. Heart: Negative. Mediastinum: Negative. Bony structures/body wall: Moderate degenerative changes of the thoracic spine. IMPRESSION: A few coarse streaky opacities at the left lung base could be due to atelectasis or early pneumonia. Report Dictated By: Vibha Alvarez MD at 07/30/2018 2:53 PM Report E-Signed By: Vibha Alvarez MD at 07/30/2018 2:55 PM WSN:[id number]
== END ==
LOC: RAD 11:40
PROVIDERS: ATTEND Internal Medicine Hematology
DX: R05 Cough (principal); R06.02 Shortness of breath
CPT/HCPCS: 71046

== ENCOUNTER 2018-09-01 14:23 | Outpatient (RCR) | payer MEDICARE ==
[~2018-09-01 14:23] MED LIST changes: +AMLO-101 PO
--- NOTE | 2018-09-01 17:37 | PT PLAN OF CARE ---
Physician: Nati Jarrett Patient is being seen: 1x/MO Therapist: Ana Luisa Pop, PT, DPT, CLT Medical Diagnosis: Breast Cancer Treatment Diagnosis: Breast Cancer Date of Onset: 04/09/18 Date of Initial Evaluation: 04/09/18 Date patient was last seen: 09/01/18 Number of treatments: 4 Number of cancellations/No shows: 0 INTERVENTIONS: Manual Therapy/STM/MET Strengthening/condition Ice/Heat Range of Motion Spinal Stabilization Ultrasound Stretching Iontophoresis Neuromuscular Re-ed Closed Chain Program Electrical Stim Posture/Body mechanics Biofeedback Home Exercise Program Mech./Manual Traction Therapeutic Activities GOALS: In 2 MO pt will maintain FACT-G score of >85 to maintain function with ADL's.MET In 4 MO pt will maintain FACT-G score of >85 to maintain function with ADL's. Not MET In 4 MO pt will maintain ECOG performance status of 2 or greater for improved function with ALD's. MET In 4 MO pt will improve L shoulder mobility to equal to that of the R for improved function with ADL's. In 4 MO pt will increase L shoulder strength to equal to that of the R for improved function with ADL's. PATIENT'S GOAL: Maintain function with ongoing oncological treatment. Status of Patient's Goals: 2/5 MET, 3/5 In Progress Patient Compliance: Fair Prognosis: Good Reasons for continuing therapy: "Dede" at this time shows accumulative side effects of treatment including fatigue, nausea and increasing neuropathy. Pt started on exercises to increase nerve conduction and improve joint stability and function of affected regions. Pt shows improved shoulder function with no longer any nerve pain in the L shoulder secondary to starting nerve glide exercises. Additionally pt reports mechanical LBP which she did not want assessed at this time with occasional radiating pain circumferentially with increased abdominal pressure and prolonged standing. Pain is to be assessed at a later time per pt preference. Dede is to finish her last round of chemo therapy next Thursday. At this time pt is to enter survivorship process of return to prior level of function. Resuming aerobic type exercise was recommended to pt to improve circulation, healing, and decrease side-effects as well as symptoms of fibromyalgia. Recommendation will require further reinforcement with pt for commitment to occur. Strength testing was not performed at this time per pt preference secondary to nausea with treatment. ROM: UE ROM (L,R): Flexion: 145, 140, Abd: 140, 138, ER: 65, 65, IR: T4, T5 Strength: UE MMT (L,R): Flexion: B 5/5, ext: B 5/5, Abd: 4+/5, 5/5, ER: 4+/5, 5/5, IR: B 5/5 3 finger pinch soap slabber: L 14#, R 13# Palpation: Moderate axillary cording is present extending to the L elbow with pulling sensation extending down to the L wrist. Special Tests: Functional Assessment of Cancer Therapy-General (FACT-G): Eval: PWB: , SWB:, EWB: , FWB: , Total: 94/108 (FACT-G): 09/01/18: PWB: , SWB:, EWB: , FWB: 15.2, Total: 82.2/108 Mobility: ECOG Performance Status: grade 2 If you have any questions or concerns, please feel free to contact me at [phone]. Thank you, Ana Luisa Pop, PT, DPT, CLT MTDD
== END 2018-09-01 18:00 | disposition home or self-care (01) ==
LOC: PT 14:23
PROVIDERS: ATTEND Internal Medicine Hematology
DX: C50.912 Malignant neoplasm of unspecified site of left female breast (principal); M54.2 Cervicalgia

== ENCOUNTER 2018-10-01 11:30 | Outpatient (RCR) | payer MEDICARE ==
[2018-07-05 12:14] VITALS: BP 136/93
[2018-07-05 12:23] LABS: PLATELET COUNT, AUTOMATED 169 K/uL (150-450)
[2018-07-05] MEDS: diphenhydrAMINE 50 MG/ML VIAL IVP PRN (13:05)
[2018-07-05] MEDS: FAMOTIDINE 10 MG/ML SDV IVP PRN (13:06)
[2018-07-05] MEDS: NS(*) 0.9% 500 ML BAG 500 ML IV PRN (13:06)
[2018-07-05] MEDS: HEPARIN FLSH (PORT) 500 UN/5ML IVP PRN (13:08)
[2018-07-12 12:05] VITALS: BP 140/104
[2018-07-12] MEDS: FAMOTIDINE 10 MG/ML SDV IVP PRN (13:02)
[2018-07-12] MEDS: diphenhydrAMINE 50 MG/ML VIAL IVP PRN (13:02)
[2018-07-12] MEDS: DEXAMETHASONE SOD PHOS 10MG/ML IVP PRN (13:02)
[2018-07-12] MEDS: HEPARIN FLSH (PORT) 500 UN/5ML IVP PRN (13:03)
[2018-07-12] MEDS: NS(*) 0.9% 500 ML BAG 500 ML IV PRN (13:03)
--- NOTE | 2018-07-13 16:14 | ONCOLOGY FOLLOW UP NOTE ---
EVENT DATE: July 12, 2018 CHIEF COMPLAINT Followup for cycle #5 of Taxol. HISTORY OF PRESENT ILLNESS Patient is a 72-year-old female undergoing treatment for stage IIA left breast infiltrating ductal carcinoma. She completed four cycles of Adriamycin and Cytoxan and began weekly Taxol on 06/14/18. Today, she presents and complains of some mild cold symptoms. She has been afebrile. Phlegm is clear. She also notes some sinus congestion, but no other significant symptoms. She denies any peripheral neuropathy. Fatigue is ongoing. ONCOLOGY HISTORY Patient is a 72-year-old female who noted a lump in her left upper-outer quadrant. Ultrasound of the breast on 02/03/18 showed a heterogeneous solid mass at 2 o'clock, measuring 1.7 x 1.6 x 2.2 cm, suspicious for malignancy. She underwent biopsy on 02/15/18, showing infiltrating ductal carcinoma, grade 2. She underwent left lumpectomy and sentinel lymph node biopsy on 03/03/18 with pathology positive for a 2 x 2 x 2 cm left breast infiltrating ductal carcinoma, grade 2/3, with lymphovascular invasion noted. Two of five sentinel nodes positive for malignancy. ER-positive 97.1%, [place]-negative, HER2/josiah negative. Ki-67 showed a high proliferation at 34.9%. Completed four cycles of dose-dense Adriamycin and Cytoxan from 03/30/18 through 05/21/18. Began weekly Taxol on 06/14/18. MEDICAL HISTORY 1. Left breast cancer. 2. Essential tremors. 3. Hyperlipidemia. SURGICAL HISTORY 1. Left lumpectomy 03/03/18. 2. Left knee replacement. 3. Abdominal surgery for resection of 15 benign tumors from the abdomen. 4. Hysterectomy 1985. 5. Two wrist surgeries. FAMILY HISTORY Mother of stage IV breast cancer, diagnosed at age 68. One sister also had stage IV breast cancer, diagnosed at age 61. SOCIAL HISTORY Patient is with four children. She is retired. She quit smoking in 1973 after one pack a day for 16 years. She occasionally drinks alcohol, but no use of illicit drugs. CURRENT MEDICATIONS 1. Colace 100 mg twice daily. 2. Cyclobenzaprine 10 mg three times daily. 3. Levothyroxine 100 mcg daily. 4. Calcium carbonate/vitamin D3 600/200 tablet daily. 5. Hydrochlorothiazide 25 mg daily. 6. Famotidine 20 mg daily. 7. Pravastatin 20 mg daily. 8. Vitamin B12, 2500 mcg tablet daily. 9. Percocet 5/325 tablet p.r.n. every six hours. 10. Ibuprofen 800 mg every eight hours. 11. Multivitamin one tablet daily. 12. Vitamin B6 50 mg daily. 13. Alpha lipoic acid 1000 mg daily. 14. Gabapentin 100 mg at bedtime p.r.n. ALLERGIES PYRIDIUM, cannot remember the reaction. REVIEW OF SYSTEMS A 12-point review of systems is performed and is negative except as stated above. PHYSICAL EXAMINATION VITAL SIGNS: Weight 105.1 kg. BP 140/104, on retake 140/95, P 76, R 16, temp 97.1, O2 sat 92%. GENERAL: Patient is a well-developed, well-nourished, but fatigued-appearing female in no acute distress. HEAD: Normocephalic, atraumatic. No sinus tenderness. EYES: Sclerae anicteric. MOUTH: Moist mucous membranes. Mild erythema in posterior pharynx, but no exudates. NECK: Supple. Mildly enlarged tonsillar nodes bilaterally, nontender. LUNGS: Clear bilaterally. CARDIOVASCULAR: Heart rate regular, 76 per minute. EXTREMITIES: No edema. NEUROLOGIC: Nonfocal. SKIN: No rash noted. LABORATORIES CBC today reveals a WBC of 4.7, ANC of 2.9, hemoglobin 12.1, hematocrit 35.6, platelets 223,000. CMP is within normal limits except for a mildly elevated AST of 46 and ALT of 67. IMPRESSION AND PLAN The patient is a 72-year-old female with stage IIA infiltrating ductal carcinoma of the left breast. She underwent lumpectomy on 03/03/18. She completed four cycles of dose-dense Adriamycin and Cytoxan from 04/09/18 through 05/21/18. She began weekly Taxol on 06/14/18. 1. Breast cancer. Cycle #5 of weekly Taxol today. She feels well enough today to receive this. 2. Upper respiratory infection symptoms. Suspect viral illness. She will notify us if she feels her symptoms are worsening. There is no evidence of acute infection on today's exam. 3. Transaminitis. AST and ALT are mildly elevated. This has been intermittent. Will continue to monitor trend. 4. Chronic pain. Well managed per Dr. Serrano on current regimen. 5. Follow up in one week for continued care, earlier if upper respiratory infection symptoms worsen. MTDD
[2018-07-19 12:16] VITALS: BP 135/101
[2018-07-19] MEDS: DEXAMETHASONE SOD PHOS 10MG/ML IVP PRN (13:06)
[2018-07-19] MEDS: FAMOTIDINE 10 MG/ML SDV IVP PRN (13:09)
[2018-07-19] MEDS: diphenhydrAMINE 50 MG/ML VIAL IVP PRN (13:11)
[2018-07-19] MEDS: NS(*) 0.9% 500 ML BAG 500 ML IV PRN (13:25)
[2018-07-19] MEDS: HEPARIN FLSH (PORT) 500 UN/5ML IVP PRN (14:46)
--- NOTE | 2018-07-20 03:04 | ONCOLOGY FOLLOW UP NOTE ---
EVENT DATE: July 19, 2018 CHIEF COMPLAINT Followup for cycle #6 of Taxol. HISTORY OF PRESENT ILLNESS Patient is a 72-year-old female undergoing treatment for stage IIA left breast infiltrating ductal carcinoma. She completed four cycles of Adriamycin and Cytoxan and began weekly Taxol on 06/14/18. When seen last week, she had developed mild cold symptoms. She was afebrile and phlegm was clear, but she did note some congestion. She then called later that week stating she was worse, with a productive cough. Z-Delmar was prescribed on 07/14/18. Today she presents and continues to feel poorly, although she believes her URI symptoms may be slowly improving. Her biggest issue is of persistent cough, worse at night. She describes some muscular discomfort from coughing. She had low-grade fevers (T-max 100.3), but is overwhelmed by the coughing. Phlegm is now clearer. ONCOLOGY HISTORY Patient is a 72-year-old female who noted a lump in her left upper-outer quadrant. Ultrasound of the breast on 02/03/18 showed a heterogeneous solid mass at 2 o'clock, measuring 1.7 x 1.6 x 2.2 cm, suspicious for malignancy. She underwent biopsy on 02/15/18, showing infiltrating ductal carcinoma, grade 2. She underwent left lumpectomy and sentinel lymph node biopsy on 03/03/18 with pathology positive for a 2 x 2 x 2 cm left breast infiltrating ductal carcinoma, grade 2/3, with lymphovascular invasion noted. Two of five sentinel nodes positive for malignancy. ER-positive 97.1%, NE-negative, HER2/josiah negative. Ki-67 showed a high proliferation at 34.9%. Completed four cycles of dose-dense Adriamycin and Cytoxan from 03/30/18 through 05/21/18. Began weekly Taxol on 06/14/18. MEDICAL HISTORY 1. Left breast cancer. 2. Essential tremors. 3. Hyperlipidemia. SURGICAL HISTORY 1. Left lumpectomy 03/03/18. 2. Left knee replacement. 3. Abdominal surgery for resection of 15 benign tumors from the abdomen. 4. Hysterectomy 1985. 5. Two wrist surgeries. FAMILY HISTORY Mother of stage IV breast cancer, diagnosed at age 68. One sister also had stage IV breast cancer, diagnosed at age 61. SOCIAL HISTORY Patient is with four children. She is retired. She quit smoking in 1973 after one pack a day for 16 years. She occasionally drinks alcohol, but no use of illicit drugs. CURRENT MEDICATIONS 1. Colace 100 mg twice daily. 2. Cyclobenzaprine 10 mg three times daily. 3. Levothyroxine 100 mcg daily. 4. Calcium carbonate/vitamin D3 600/200 tablet daily. 5. Hydrochlorothiazide 25 mg daily. 6. Famotidine 20 mg daily. 7. Pravastatin 20 mg daily. 8. Vitamin B12, 2500 mcg tablet daily. 9. Percocet 5/325 tablet p.r.n. every six hours. 10. Ibuprofen 800 mg every eight hours. 11. Multivitamin one tablet daily. 12. Vitamin B6 50 mg daily. 13. Alpha lipoic acid 1000 mg daily. 14. Gabapentin 100 mg at bedtime p.r.n. ALLERGIES PYRIDIUM, cannot remember the reaction. REVIEW OF SYSTEMS A 12-point review of systems is performed and is negative except as stated above. PHYSICAL EXAMINATION VITAL SIGNS: Weight 103.5 kg. BP 135/101, P 90, R 16, temp 98, O2 sat 90%. GENERAL: Patient is a well-developed but fatigued-appearing female in no acute distress. HEAD: Normocephalic, atraumatic. No sinus tenderness. EYES: Sclerae anicteric. MOUTH: Moist mucous membranes with mild erythema in posterior pharynx. No exudates. NECK: Supple. No adenopathy. LUNGS: Clear bilaterally, but very coarse cough. CARDIOVASCULAR: Heart rate regular, 90 per minute, without murmur, S3 or S4. EXTREMITIES: No edema. NEUROLOGIC: Nonfocal. LABORATORY CBC today reveals a WBC of 6.0, hemoglobin 11.9, hematocrit 34.3, platelets 251,000. CMP is within normal limits except for a slightly low sodium of 136. IMPRESSION AND PLAN The patient is a 72-year-old female with stage IIA infiltrating ductal carcinoma of the left breast. She underwent lumpectomy on 03/03/18. She completed four cycles of dose-dense Adriamycin and Cytoxan from 04/09/18 through 05/21/18. She began weekly Taxol on 06/14/18. 1. Breast cancer. After much discussion, patient would like to proceed with cycle #6 of weekly Taxol today. She is nontoxic on exam, and labs are within normal limits. 2. Upper respiratory infection. Completed a Z-Delmar, but still with ongoing cough, worse at night. Phlegm is now less thick and clearer. She has been afebrile (T-max 100.3 four days ago). Promethazine with codeine 6.25-10 mg per 5 mL is prescribed. She will use 5 mL every six hours p.r.n. cough. I have instructed her to especially take this at night. 3. Chronic pain. Continue followup with Dr. Serrano. Current program is working well for her. 4. Follow up with Dr. Jarrett on Thursday. She will be seen again on 07/26/18 for cycle #7 of treatment. MTDD
[2018-07-23 15:07] VITALS: BP 145/88
--- NOTE | 2018-07-24 07:32 | EL-[facility] ONCOLOGY NOTE ---
EVENT DATE: July 23, 2018 DIAGNOSIS Stage IIA (pT1C pN1a cM0) left breast infiltrating ductal carcinoma. CHIEF COMPLAINT Patient is here today for followup of her left breast cancer on adjuvant chemotherapy with Taxol. ONCOLOGY HISTORY Patient is a 72-year-old female who felt a lump in her upper outer quadrant, so the patient had an ultrasound of the left breast done on February 03, 2018, which showed a left breast heterogeneous solid mass at 2 o'clock, measuring 1.7 x 1.6 x 2.2 cm, suspicious for malignancy. Patient had ultrasound-guided biopsy of the left breast mass done on February 15, 2018, and the pathology came back positive for infiltrating ductal carcinoma grade 2. She ended by having left breast lumpectomy and sentinel lymph node biopsy done on March 03, 2018 and the pathology came back positive for 2 x 2 x 2 cm left breast infiltrating ductal carcinoma grade 2/3 with positive lymphovascular invasion. Two out of five sentinel lymph nodes came back positive for metastasis. One of the lymph nodes as an area of macro metastasis measured about 3 mm, ER positive 97.1%, MD negative, HER2/josiah was 1+ not expressed while Ki-67 showed high proliferation at 34.9%. So the patient's tumor was staged as a stage IIA (pT1c pN1a, cM0). 2D echocardiogram showed left ventricular ejection fraction normal at 70%. The patient has started treated with dose-dense AC with Adriamycin and cyclophosphamide on April 09, 2018. Patient completed four courses of dose- dense AC on May 21, 2018. She started adjuvant Taxol therapy on June 14, 2018. HISTORY OF PRESENT ILLNESS Patient is here today for followup of her breast cancer, on adjuvant Taxol therapy currently after she finished dose-dense AC chemotherapy. She has upper respiratory tract infection lately and she continues to have cough for over three weeks now with expectoration and shortness of breath. She haw low-grade fever. She has occasional epistaxis. She has intermittent diarrhea. She has pain all over her joints. She is weak, tired and fatigued. Patient used Z-Delmar antibiotic without improvement. PAST MEDICAL HISTORY 1. Essential tremors. 2. Hypercholesterolemia. PAST SURGICAL HISTORY 1. Left knee replacement. 2. Abdominal surgery for resection of about 15 tumors from the abdomen which were benign. 3. Hysterectomy in 1985. 4. Two wrist surgeries. FAMILY HISTORY Mother had with stage IV breast cancer diagnosed at age 68 years of age. One sister had also stage IV breast cancer diagnosed at age of 61. SOCIAL HISTORY Patient is with four children. 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 She quit smoking in 1973 after one pack a day for 16 years. Occasionally drinks alcohol, but no abuse of illicit drugs. CURRENT MEDICATIONS 1. Colace 100 mg twice daily. 2. Cyclobenzaprine 10 mg three times daily. 3. Levothyroxine 100 mcg daily. 4. Calcium carbonate/vitamin D3 600/200 tablet daily. 5. Hydrochlorothiazide 25 mg daily. 6. Famotidine 20 mg daily. 7. Pravastatin 20 mg daily. 8. Vitamin B12 2500 mcg tablet daily. 9. Percocet 5/325 tablet p.r.n. every six hours. 10. Ibuprofen 800 mg every eight hours. 11. Multivitamin one tablet daily. ALLERGIES FENAZOPIRIDINA, cannot remember the reaction. REVIEW OF SYSTEMS CONSTITUTIONAL: No appetite or weight change. No fever, chills. She has sweating. No recent infection. HEENT: Ears: No tinnitus or hearing problem. Nose: She has occasional epistaxis. Throat: No sore throat or mouth ulcers. Eyes: No diplopia or visual changes. RESPIRATORY: She has cough with expectoration for over three weeks now. She is short-winded. CARDIOVASCULAR: No chest pain, orthopnea, or paroxysmal nocturnal dyspnea (PND). No edema. No palpitations. GASTROINTESTINAL: She has intermittent diarrhea. GENITOURINARY: No hematuria or dysuria. MUSCULOSKELETAL: She has generalized joint pain. NEUROLOGICAL: She has occasional headache. HEMATOLOGIC/LYMPHATIC: She is weak, tired, and fatigued. SKIN: No skin rash or lumps. PSYCHIATRIC: No anxiety or depression. PHYSICAL EXAMINATION GENERAL: Looks stable. Well developed, well nourished, and in no acute distress. VITAL SIGNS: Blood pressure 145/88, pulse 91 per minute, respirations 16 per minute, temperature 99.7, pulse ox 90% on room air. HEENT: Head: Atraumatic. No sinus tenderness to palpation. Eyes: No icterus or conjunctivitis. Mouth and Throat: No oral thrush or mucositis. NECK: Supple. No cervical or supraclavicular lymphadenopathy. LUNGS: Clear to auscultation and percussion bilaterally. HEART: Regular rate and rhythm. No gallops, murmurs, clicks, or rubs. ABDOMEN: Soft and lax. No tenderness. No hepatosplenomegaly. No masses. EXTREMITIES: No cyanosis, clubbing, or edema. LYMPHATICS: No peripheral lymphadenopathy. NEUROLOGICAL: Conscious, alert, and oriented times three. No focal motor or sensory deficits. PSYCHIATRIC: Mood and affect appear normal. SKIN: No skin rash, bruise, or purpuric eruption. DIAGNOSTIC DATA CBC showed white count 6, hemoglobin 11.9, hematocrit 34.3, platelets 251,000. Chem panel is totally normal except sodium 136. ASSESSMENT 1. Stage IIA (pT1c pN1a cM0) left breast infiltrating ductal carcinoma. Two out of five lymph nodes came back positive for metastasis with one with macro metastasis, measuring 0.3 cm. Patient had lumpectomy and sentinel lymph node biopsy done March 03, 2018. ER positive 95.9%, MD negative, HER2/josiah negative, 1+ by immunohistochemistry, and Ki-67 was high at 34.9%. 2D echocardiogram showed normal left ventricular ejection fraction at 70%. The patient received four courses of dose-dense AC with Adriamycin and cyclophosphamide between April 09, 2018 through May 21, 2018. She started adjuvant weekly Taxol chemotherapy on June 14, 2018. She received four courses so far and her last course was on July 05, 2018. Patient caught upper respiratory infection lately and she would like to skip her next chemo on July 26, 2018 and I am planning to resume her chemotherapy after Shivani on August 04, 2018. Patient will come on a weekly basis prior to each dose of chemotherapy with CBC and chem panel. 2. Upper respiratory tract infection with low-grade fever. Patient did not respond to Z-Delmar antibiotic. I am planning to put her on Cefdinir 300 mg twice daily for a week. 3. Chemotherapy-induced anemia, which is mild at 11.9 g/dl. We will continue to monitor. PLAN 1. Hold the chemotherapy on July 26, 2018. 2. Resume weekly Taxol on August 04, 2018. 3. CBC and chem panel to be checked and patient to return to the clinic prior to each dose of chemotherapy. 4. Cefdinir 300 mg twice daily for one week. 5. Patient to contact us for any new concerns or complaints. MTDD
[2018-08-04 12:14] VITALS: BP 152/83
[2018-08-04] MEDS: DEXAMETHASONE SOD PHOS 10MG/ML IVP PRN (13:04)
[2018-08-04] MEDS: FAMOTIDINE 10 MG/ML SDV IVP PRN (13:23)
[2018-08-04] MEDS: diphenhydrAMINE 50 MG/ML VIAL IVP PRN (13:30)
[2018-08-04 15:30] VITALS: BP 156/90
[2018-08-11 12:10] VITALS: BP 152/82
[2018-08-11] MEDS: diphenhydrAMINE 50 MG/ML VIAL IVP PRN (13:30)
[2018-08-11] MEDS: FAMOTIDINE 10 MG/ML SDV IVP PRN (13:31)
[2018-08-11] MEDS: DEXAMETHASONE SOD PHOS 10MG/ML IVP PRN (13:31)
[2018-08-13 13:09] VITALS: BP 157/97
--- NOTE | 2018-08-13 20:32 | EL-TARAB[facility] ONCOLOGY NOTE ---
EVENT DATE: August 13, 2018 DIAGNOSIS Stage IIA (pT1c pN1a cM0) left breast infiltrating ductal carcinoma. CHIEF COMPLAINT Patient is here today for followup of her left breast cancer on adjuvant chemotherapy with Taxol. ONCOLOGY HISTORY Patient is a 72-year-old female who felt a lump in her upper-outer quadrant, so the patient had an ultrasound of the left breast done on February 03, 2018, which showed a left breast heterogeneous solid mass at 2 o'clock, measuring 1.7 x 1.6 x 2.2 cm, suspicious for malignancy. Patient had ultrasound-guided biopsy of the left breast mass done on February 15, 2018, and the pathology came back positive for infiltrating ductal carcinoma grade 2. She ended by having left breast lumpectomy and sentinel lymph node biopsy done on March 03, 2018, and the pathology came back positive for 2 x 2 x 2 cm left breast infiltrating ductal carcinoma grade 2/3 with positive lymphovascular invasion. Two out of five sentinel lymph nodes came back positive for metastasis. One of the lymph nodes as an area of macro metastasis measured about 3 mm, ER positive 97.1%, OR negative, HER2/josiah was 1+, not expressed, while Ki-67 showed high proliferation at 34.9%. So, the patient's tumor was staged as a stage IIA (pT1c pN1a, cM0). 2D echocardiogram showed left ventricular ejection fraction normal at 70%. The patient started treatment with dose-dense AC with Adriamycin and cyclophosphamide on April 09, 2018. Patient completed four courses of dose- dense AC on May 21, 2018. She started adjuvant Taxol therapy on June 14, 2018. HISTORY OF PRESENT ILLNESS Patient is here today for followup of her breast cancer, on adjuvant Taxol therapy. She is feeling better from her recent upper respiratory infection. Her cough is getting better. She has musculoskeletal pain due to her fibromyalgia. She has some numbness in her toes. She is weak, tired, and fatigued, but other than that, her general condition is stable. PAST MEDICAL HISTORY 1. Essential tremors. 2. Hypercholesterolemia. PAST SURGICAL HISTORY 1. Left knee replacement. 2. Abdominal surgery for resection of about 15 tumors from the abdomen which were benign. 3. Hysterectomy in 1985. 4. Two wrist surgeries. FAMILY HISTORY Mother with stage IV breast cancer diagnosed at age 68 years of age. One sister had also stage IV breast cancer diagnosed at age of 61. SOCIAL HISTORY Patient is with four children. 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 She quit smoking in 1973 after one pack a day for 16 years. Occasionally drinks alcohol, but no abuse of illicit drugs. CURRENT MEDICATIONS 1. Colace 100 mg twice daily. 2. Cyclobenzaprine 10 mg three times daily. 3. Levothyroxine 100 mcg daily. 4. Calcium carbonate/vitamin D3 600/200 tablet daily. 5. Hydrochlorothiazide 25 mg daily. 6. Famotidine 20 mg daily. 7. Pravastatin 20 mg daily. 8. Vitamin B12 2500 mcg tablet daily. 9. Percocet 5/325 tablet p.r.n. every six hours. 10. Ibuprofen 800 mg every eight hours. 11. Multivitamin one tablet daily. ALLERGIES FENAZOPIRIDINA, cannot remember the reaction. REVIEW OF SYSTEMS CONSTITUTIONAL: No appetite or weight change. No fever, chills, or sweating. No recent infection. HEENT: Ears: No tinnitus or hearing problem. Nose: No nasal discharge or epistaxis. Throat: No sore throat or mouth ulcers. Eyes: No diplopia or visual changes. RESPIRATORY: No shortness of breath. She has cough which is getting better. No expectoration or hemoptysis. CARDIOVASCULAR: No chest pain, orthopnea, or paroxysmal nocturnal dyspnea (PND). No edema. No palpitations. GASTROINTESTINAL: No nausea or vomiting. No diarrhea or constipation. No change in bowel movements. No heartburn or swallowing difficulties. No abdominal pain. No jaundice. No hematemesis, melena or rectal bleeding. GENITOURINARY: No hematuria or dysuria. MUSCULOSKELETAL: She has musculoskeletal pain due to her fibromyalgia. NEUROLOGICAL: She has numbness in her toes. No headaches or convulsions. HEMATOLOGIC/LYMPHATIC: No bleeding or easy bruising. She is weak, tired, and fatigued. No enlarged lymph nodes. SKIN: No skin rash or lumps. PSYCHIATRIC: No anxiety or depression. PHYSICAL EXAMINATION GENERAL: Looks stable. Well developed, well nourished, and in no acute distress. VITAL SIGNS: Blood pressure 157/97, pulse 90 per minute, respirations 16 per minute, temperature 97, pulse ox 90% on room air. HEENT: Head: Atraumatic. No sinus tenderness to palpation. Eyes: No icterus or conjunctivitis. Mouth and throat: No oral thrush or mucositis. NECK: Supple. No cervical or supraclavicular lymphadenopathy. LUNGS: Clear to auscultation and percussion bilaterally. HEART: Regular rate and rhythm. No gallops, murmurs, clicks, or rubs. ABDOMEN: Soft and lax. No tenderness. No hepatosplenomegaly. No masses. EXTREMITIES: No cyanosis, clubbing, or edema. LYMPHATICS: No peripheral lymphadenopathy. NEUROLOGICAL: Conscious, alert, and oriented times three. No focal motor or sensory deficits. PSYCHIATRIC: Mood and affect appear normal. SKIN: No skin rash, bruise, or purpuric eruption. DIAGNOSTIC DATA CBC showed white count 5.4, hemoglobin 13.1, hematocrit 38.7, platelets 209,000. Chem panel totally normal except blood sugar 127, AST 55, ALT 65. Other parameters are normal. ASSESSMENT 1. Stage IIA (pT1c pN1a cM0) left breast infiltrating ductal carcinoma. Two out of five lymph nodes came back positive for metastasis with one with macro metastasis, measuring 0.3 cm. Patient had lumpectomy and sentinel lymph node biopsy done March 03, 2018. ER positive 95.9%, OR negative, HER2/josiah negative, 1+ by immunohistochemistry, and Ki-67 was high at 34.9%. 2D echocardiogram showed normal left ventricular ejection fraction at 70%. The patient received four courses of dose-dense AC with Adriamycin and cyclophosphamide between April 09, 2018, through May 21, 2018. She started adjuvant weekly Taxol chemotherapy June 14, 2018. She completed eight courses on the August. I am planning to continue the last four courses of weekly Taxol as per schedule. I will see her again in a week with CBC and chemistry panel prior to her next dose of chemotherapy. Patient is doing fine with her treatment currently. 2. Chemotherapy-induced anemia, recovered. Her current hemoglobin is 13.1 g/dL. I will continue to monitor. 3. Transaminitis, most probably due to chemotherapy. I will continue to monitor and adjust the dose if indicated of Taxol. PLAN 1. Chemotherapy with Taxol as per schedule. 2. Patient to return on a weekly basis with CBC and chem panel prior to each dose of chemotherapy. 3. Patient to contact us for any new concern or complaint. 4. Amlodipine 5 mg daily to be given due to her high blood pressure, which could be due to her steroids taken with her treatment on a weekly basis. After finishing chemotherapy, we will reevaluate. MTDD
[2018-08-18 12:17] VITALS: BP 121/90
[2018-08-18] MEDS: DEXAMETHASONE SOD PHOS 10MG/ML IVP PRN (13:13)
[2018-08-18] MEDS: FAMOTIDINE 10 MG/ML SDV IVP PRN (13:14)
[2018-08-18] MEDS: diphenhydrAMINE 50 MG/ML VIAL IVP PRN (13:17)
[2018-08-18] MEDS: HEPARIN FLSH (PORT) 500 UN/5ML IVP PRN (13:44)
[2018-08-18 14:50] VITALS: BP 139/90
--- NOTE | 2018-08-19 01:27 | ONCOLOGY FOLLOW UP NOTE ---
EVENT DATE: August 18, 2018 CHIEF COMPLAINT Followup for left breast cancer. HISTORY OF PRESENT ILLNESS Patient is a 73-year-old female who was seen today for consideration of cycle #9 of adjuvant Taxol. She is tolerating this fairly well. She does describe some intermittent numbness and tingling in her toes, worse at night. This has not been persistent. She is somewhat fatigued. She started amlodipine last week, and blood pressure has improved slightly. She denies any other new complaints. We did spend some time discussing upcoming radiation. ONCOLOGY HISTORY Patient is a 73-year-old female who noted a lump in her left upper-outer quadrant. Ultrasound of the breast on 02/03/18 showed a heterogeneous solid mass at 2 o'clock, measuring 1.7 x 1.6 x 2.2 cm, suspicious for malignancy. She underwent biopsy on 02/15/18, showing infiltrating ductal carcinoma, grade 2. She underwent left lumpectomy and sentinel lymph node biopsy on 03/03/18 with pathology positive for a 2 x 2 x 2 cm left breast infiltrating ductal carcinoma, grade 2/3, with lymphovascular invasion noted. Two of five sentinel nodes positive for malignancy. ER-positive 97.1%, [place]-negative, HER2/josiah negative. Ki-67 showed a high proliferation at 34.9%. Completed four cycles of dose-dense Adriamycin and Cytoxan from 03/30/18 through 05/21/18. Began weekly Taxol on 06/14/18. MEDICAL HISTORY 1. Left breast cancer. 2. Essential tremors. 3. Hyperlipidemia. SURGICAL HISTORY 1. Left lumpectomy 03/03/18. 2. Left knee replacement. 3. Abdominal surgery for resection of 15 benign tumors from the abdomen. 4. Hysterectomy 1985. 5. Two wrist surgeries. FAMILY HISTORY Mother of stage IV breast cancer, diagnosed at age 68. One sister also had stage IV breast cancer, diagnosed at age 61. SOCIAL HISTORY Patient is with four children. She is retired. She quit smoking in 1973 after one pack a day for 16 years. She occasionally drinks alcohol, but no use of illicit drugs. CURRENT MEDICATIONS 1. Colace 100 mg twice daily. 2. Cyclobenzaprine 10 mg three times daily. 3. Levothyroxine 100 mcg daily. 4. Calcium carbonate/vitamin D3 600/200 tablet daily. 5. Hydrochlorothiazide 25 mg daily. 6. Famotidine 20 mg daily. 7. Pravastatin 20 mg daily. 8. Vitamin B12, 2500 mcg tablet daily. 9. Percocet 5/325 tablet p.r.n. every six hours. 10. Ibuprofen 800 mg every eight hours. 11. Multivitamin one tablet daily. 12. Vitamin B6 50 mg daily. 13. Alpha lipoic acid 1000 mg daily. 14. Gabapentin 100 mg at bedtime p.r.n. ALLERGIES PYRIDIUM, cannot remember the reaction. REVIEW OF SYSTEMS A 12-point review of systems is performed and is negative except as stated above. PHYSICAL EXAMINATION VITAL SIGNS: Weight 105.6 kg. BP 121/90, P 82, R 16, temp 98.1, O2 sat 93%. GENERAL: Patient is a well-developed, well-nourished female in no acute distress. HEAD: Normocephalic, atraumatic. EYES: Sclerae anicteric. MOUTH: Moist mucous membranes. No lesions. NECK: Supple. No palpable adenopathy. LUNGS: Clear bilaterally. CARDIOVASCULAR: Heart rate regular, 82 per minute, without murmur, S3 or S4. EXTREMITIES: No edema. NEUROLOGIC: Nonfocal. LABORATORY CBC today reveals a WBC of 4.6, ANC of 2.4, hemoglobin 13.0, hematocrit 37.5, platelets 188,000. CMP is within normal limits except for a mildly elevated AST of 41 and ALT of 60. IMPRESSION AND PLAN The patient is a 73-year-old female with stage IIA infiltrating ductal carcinoma of the left breast. She underwent lumpectomy on 03/03/18. She completed four cycles of dose-dense Adriamycin and Cytoxan from 04/09/18 through 05/21/18. She began weekly Taxol on 06/14/18. 1. Breast cancer. Cycle #9 of weekly Taxol today. She continues to tolerate this fairly well. 2. Neuropathy. Describes intermittent numbness and tingling in her toes, worse at night. She feels this is manageable. We will continue to monitor. 3. Hypertension. Blood pressure has been high, likely secondary to the steroids given as premedications. She started amlodipine 5 mg daily on 08/13/18. Blood pressure has improved somewhat today. She will continue this. 4. Chronic pain. Continue followup with Dr. Serrano. She believes she is managing this well. 5. Radiation. We spent some time discussing upcoming adjuvant radiation. She has an appointment to see Dr. Mcarthur on 09/07/17. 6. Follow up on 08/25/18 for cycle #10 of treatment. MTDD
[2018-08-25 12:23] VITALS: BP 131/82
[2018-08-25] MEDS: diphenhydrAMINE 50 MG/ML VIAL IVP PRN (13:10)
[2018-08-25] MEDS: FAMOTIDINE 10 MG/ML SDV IVP PRN (13:10)
[2018-08-25] MEDS: DEXAMETHASONE SOD PHOS 10MG/ML IVP PRN (13:10)
[2018-08-25] MEDS: NS(*) 0.9% 500 ML BAG 500 ML IV PRN (13:11)
[2018-08-25] MEDS: HEPARIN FLSH (PORT) 500 UN/5ML IVP PRN (13:11)
--- NOTE | 2018-08-25 14:11 | ONCOLOGY FOLLOW UP NOTE ---
EVENT DATE: August 25, 2018 CHIEF COMPLAINT Followup for left breast cancer. HISTORY OF PRESENT ILLNESS Patient is a 73-year-old female who was seen today for consideration of cycle #10 of adjuvant Taxol. She continues to tolerate this well, although has noted more fatigue. She has some numbness and tingling in her toes and on the soles of her feet, worse at night. She finds Aspercreme and massage helpful for this. She continues on amlodipine and blood pressure has improved. She has no other new complaints. ONCOLOGY HISTORY Patient is a 73-year-old female who noted a lump in her left upper-outer quadrant. Ultrasound of the breast on 02/03/18 showed a heterogeneous solid mass at 2 o'clock, measuring 1.7 x 1.6 x 2.2 cm, suspicious for malignancy. She underwent biopsy on 02/15/18, showing infiltrating ductal carcinoma, grade 2. She underwent left lumpectomy and sentinel lymph node biopsy on 03/03/18 with pathology positive for a 2 x 2 x 2 cm left breast infiltrating ductal carcinoma, grade 2/3, with lymphovascular invasion noted. Two of five sentinel nodes positive for malignancy. ER-positive 97.1%, [place]-negative, HER2/josiah negative. Ki-67 showed a high proliferation at 34.9%. Completed four cycles of dose-dense Adriamycin and Cytoxan from 03/30/18 through 05/21/18. Began weekly Taxol on 06/14/18. MEDICAL HISTORY 1. Left breast cancer. 2. Essential tremors. 3. Hyperlipidemia. SURGICAL HISTORY 1. Left lumpectomy 03/03/18. 2. Left knee replacement. 3. Abdominal surgery for resection of 15 benign tumors from the abdomen. 4. Hysterectomy 1985. 5. Two wrist surgeries. FAMILY HISTORY Mother of stage IV breast cancer, diagnosed at age 68. One sister also had stage IV breast cancer, diagnosed at age 61. SOCIAL HISTORY Patient is with four children. She is retired. She quit smoking in 1973 after one pack a day for 16 years. She occasionally drinks alcohol, but no use of illicit drugs. CURRENT MEDICATIONS 1. Colace 100 mg twice daily. 2. Cyclobenzaprine 10 mg three times daily. 3. Levothyroxine 100 mcg daily. 4. Calcium carbonate/vitamin D3 600/200 tablet daily. 5. Hydrochlorothiazide 25 mg daily. 6. Famotidine 20 mg daily. 7. Pravastatin 20 mg daily. 8. Vitamin B12, 2500 mcg tablet daily. 9. Percocet 5/325 tablet p.r.n. every six hours. 10. Ibuprofen 800 mg every eight hours. 11. Multivitamin one tablet daily. 12. Vitamin B6 50 mg daily. 13. Alpha lipoic acid 1000 mg daily. ALLERGIES PYRIDIUM, cannot remember the reaction. REVIEW OF SYSTEMS A 12-point review of systems is performed and is negative except as stated above. PHYSICAL EXAMINATION VITAL SIGNS: Weight 105.7 kg. BP 131/82, P 90, R 16, temp 98.4, O2 sat 90%. GENERAL: Patient is a well-developed, well-nourished female in no acute distress. HEAD: Normocephalic, atraumatic. EYES: Sclerae anicteric. MOUTH: Moist mucous membranes. NECK: Supple. No palpable adenopathy. LUNGS: Clear bilaterally. CARDIOVASCULAR: Heart rate regular, 90 per minute, without murmur, S3 or S4. EXTREMITIES: No edema. NEUROLOGIC: Nonfocal. LABORATORY CBC today reveals a WBC of 4.2, ANC of 2.4, hemoglobin 12.4, hematocrit 36.3, platelets 166,000. CMP is within normal limits except for a mildly elevated AST of 44 and ALT of 70. IMPRESSION AND PLAN The patient is a 73-year-old female with stage IIA infiltrating ductal carcinoma of the left breast. She underwent lumpectomy on 03/03/18. She completed four cycles of dose-dense Adriamycin and Cytoxan from 04/09/18 through 05/21/18. She began weekly Taxol on 06/14/18. 1. Breast cancer. Cycle #10 of weekly Taxol today. She continues to tolerate this well. 2. Elevated liver function tests. AST and ALT have been slightly elevated but fairly stable, likely related to treatment. We will continue to monitor trend. 3. Neuropathy. Describes some numbness on the bottom of her feet as well as tingling in her toes. These symptoms are worse at night. She finds massage and Aspercreme to be helpful. 4. Hypertension. Began amlodipine 5 mg daily on August 13, 2018. Blood pressure has now improved, 131/82 today. 5. Chronic pain. Continue regimen per Dr. Serrano. 6. Radiation. She has an appointment to see Dr. Mcarthur in September 07, 2018. 7. Follow up on September 01, 2018 for cycle #11 of treatment. MTDD
[2018-08-25 14:42] VITALS: BP 122/86
[2018-09-01 12:40] VITALS: BP 130/100
[2018-09-01] MEDS: DEXAMETHASONE SOD PHOS 10MG/ML IVP PRN (13:37)
[2018-09-01] MEDS: FAMOTIDINE 10 MG/ML SDV IVP PRN (13:54)
[2018-09-01] MEDS: diphenhydrAMINE 50 MG/ML VIAL IVP PRN (14:01)
[2018-09-01] MEDS: NS(*) 0.9% 500 ML BAG 500 ML IV PRN (14:20)
[2018-09-01] MEDS: HEPARIN FLSH (PORT) 500 UN/5ML IVP PRN (15:25)
[2018-09-01 15:32] VITALS: BP 149/94
[2018-09-03 13:02] VITALS: BP 131/93
--- NOTE | 2018-09-03 17:14 | [facility] ONCOLOGY NOTE ---
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 CHIEF COMPLAINT Patient is here today for followup of her left breast cancer on adjuvant chemotherapy with Taxol. ONCOLOGY HISTORY Patient is a 72-year-old female who felt a lump in her upper-outer quadrant, so the patient had an ultrasound of the left breast done on February 03, 2018, which showed a left breast heterogeneous solid mass at 2 o'clock, measuring 1.7 x 1.6 x 2.2 cm, suspicious for malignancy. Patient had ultrasound-guided biopsy of the left breast mass done on February 15, 2018, and the pathology came back positive for infiltrating ductal carcinoma grade 2. She ended by having left breast lumpectomy and sentinel lymph node biopsy done on March 03, 2018, and the pathology came back positive for 2 x 2 x 2 cm left breast infiltrating ductal carcinoma grade 2/3 with positive lymphovascular invasion. Two out of five sentinel lymph nodes came back positive for metastasis. One of the lymph nodes as an area of macro metastasis measured about 3 mm, ER positive 97.1%, DE negative, HER2/josiah was 1+, not expressed, while Ki-67 showed high proliferation at 34.9%. So, the patient's tumor was staged as a stage IIA (pT1c pN1a, cM0). 2D echocardiogram showed left ventricular ejection fraction normal at 70%. The patient started treatment with dose-dense AC with Adriamycin and cyclophosphamide on April 09, 2018. Patient completed four courses of dose- dense AC on May 21, 2018. She started adjuvant Taxol therapy on June 14, 2018. HISTORY OF PRESENT ILLNESS Patient is here today for followup of her breast cancer on adjuvant Taxol therapy. She is doing fine currently. She has some exertional shortness of breath. She overcame her upper respiratory tract infection. She has occasional nausea and diarrhea. She has pain from her fibromyalgia. 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 She is weak, tired, and fatigued. PAST MEDICAL HISTORY 1. Essential tremors. 2. Hypercholesterolemia. PAST SURGICAL HISTORY 1. Left knee replacement. 2. Abdominal surgery for resection of about 15 tumors from the abdomen which were benign. 3. Hysterectomy in 1985. 4. Two wrist surgeries. FAMILY HISTORY Mother with stage IV breast cancer diagnosed at age 68 years of age. One sister had also stage IV breast cancer diagnosed at age of 61. SOCIAL HISTORY Patient is with four children. 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 She quit smoking in 1973 after one pack a day for 16 years. Occasionally drinks alcohol, but no abuse of illicit drugs. CURRENT MEDICATIONS 1. Colace 100 mg twice daily. 2. Cyclobenzaprine 10 mg three times daily. 3. Levothyroxine 100 mcg daily. 4. Calcium carbonate/vitamin D3 600/200 tablet daily. 5. Hydrochlorothiazide 25 mg daily. 6. Famotidine 20 mg daily. 7. Pravastatin 20 mg daily. 8. Vitamin B12 2500 mcg tablet daily. 9. Percocet 5/325 tablet p.r.n. every six hours. 10. Ibuprofen 800 mg every eight hours. 11. Multivitamin one tablet daily. ALLERGIES FENAZOPIRIDINA, cannot remember the reaction. REVIEW OF SYSTEMS CONSTITUTIONAL: No appetite or weight change. No fever, chills, or sweating. No recent infection. HEENT: Ears: No tinnitus or hearing problem. Nose: No nasal discharge or epistaxis. Throat: No sore throat or mouth ulcers. Eyes: No diplopia or visual changes. RESPIRATORY: Patient has exertional shortness of breath. No cough, expectoration, or hemoptysis. CARDIOVASCULAR: No chest pain, orthopnea, or paroxysmal nocturnal dyspnea (PND). No edema. No palpitations. GASTROINTESTINAL: She has occasional nausea and diarrhea. No vomiting or constipation. No change in bowel movements. No heartburn or swallowing difficulties. No abdominal pain. No jaundice. No hematemesis, melena, or rectal bleeding. GENITOURINARY: No hematuria or dysuria. MUSCULOSKELETAL: She has pain from her fibromyalgia. NEUROLOGICAL: She has tingling and numbness in her feet from Taxol therapy. No headaches or convulsions. HEMATOLOGIC/LYMPHATIC: No bleeding or easy bruising. She is weak, tired, and fatigued. No enlarged lymph nodes. SKIN: No skin rash or lumps. PSYCHIATRIC: No anxiety or depression. PHYSICAL EXAMINATION GENERAL: Looks stable. Well developed, well nourished, and in no acute distress. VITAL SIGNS: Blood pressure 131/93, pulse 104 per minute, respirations 16 per minute, temperature 97.1, pulse oximetry 91% on room air. HEENT: Head: Atraumatic. No sinus tenderness to palpation. Eyes: No icterus or conjunctivitis. Mouth and throat: No oral thrush or mucositis. NECK: Supple. No cervical or supraclavicular lymphadenopathy. LUNGS: Clear to auscultation and percussion bilaterally. HEART: Regular rate and rhythm. No gallops, murmurs, clicks, or rubs. ABDOMEN: Soft and lax. No tenderness. No hepatosplenomegaly. No masses. EXTREMITIES: No cyanosis, clubbing, or edema. LYMPHATICS: No peripheral lymphadenopathy. NEUROLOGICAL: Conscious, alert, and oriented times three. No focal motor or sensory deficits. PSYCHIATRIC: Mood and affect appear normal. SKIN: No skin rash, bruise, or purpuric eruption. DIAGNOSTIC DATA CBC showed white count 4.5, hemoglobin 12.7, hematocrit 37.8, platelets 240,000. Chem panel totally normal except sodium 135, chloride 108, AST 40, and ALT 68. Other parameters are normal. ASSESSMENT 1. Stage IIA (pT1c pN1a cM0) left breast infiltrating ductal carcinoma. Two out of five lymph nodes came back positive for metastasis, one with macro metastasis measuring 0.3 cm. Patient had lumpectomy and sentinel lymph node biopsy done March 03, 2018. ER positive 95.9%, DE negative, HER2/josiah negative (1+ by immunohistochemistry), and Ki-67 was high at 34.9%. 2D echocardiogram showed normal left ventricular ejection fraction at 70%. The patient received four cycles of dose-dense AC with Adriamycin and cyclophosphamide between April 09, 2018, through May 21, 2018. She started adjuvant weekly Taxol chemotherapy June 14, 2018. She completed 11 courses so far, and she has only one dose of Taxol to finish her adjuvant Taxol therapy. Patient is going after that to have radiation therapy, and I am planning to see her in two months from now with CBC, chemistry panel, and CA27.29. To start adjuvant hormonal therapy at that time. 2. Chemotherapy-induced anemia. Her current hemoglobin is 12.7 g/dL. I will continue to monitor. 3. Transaminitis, most probably due to chemotherapy. Will continue to monitor after we finish her Taxol therapy. PLAN 1. Chemotherapy with Taxol weekly with the last dose next week. 2. Patient to return in two months with CBC, chem panel, and CA27.29. 3. Patient to contact us for any new concerns or complaints. MTDD
[2018-09-08 12:15] VITALS: BP 132/80
[2018-09-08] MEDS: NS(*) 0.9% 500 ML BAG 500 ML IV PRN ×2 (12:27→13:13)
[2018-09-08] MEDS: diphenhydrAMINE 50 MG/ML VIAL IVP PRN (13:12)
[2018-09-08] MEDS: FAMOTIDINE 10 MG/ML SDV IVP PRN (13:12)
[2018-09-08] MEDS: DEXAMETHASONE SOD PHOS 10MG/ML IVP PRN (13:12)
[2018-09-08] MEDS: HEPARIN FLSH (PORT) 500 UN/5ML IVP PRN (14:54)
[2018-09-08 14:57] VITALS: BP 155/90
[2018-09-17 13:29] LABS: PLATELET COUNT, AUTOMATED 226 K/uL (150-450)
[2018-09-17 15:16] VITALS: BP 123/86
[~2018-10-01] VITALS: Ht 156.2 cm; Wt 106.9 kg
[~2018-10-01 11:30] MED LIST changes: +ALTEPLASE RECOMB 2 MG VIAL IVP PRN; +DEXAMETHASONE INJ 100 MG/10 ML IVP PRN; +DEXTROSE 5%(*) 100 ML BAG 100 ML IVPB PRN; +LIDOCAINE/SOD BICARB 8.4% SYR ID PRN; +NS 0.9% IVPB ONE; +NS 0.9% IVPB PRN; +NS(*) 0.9% 100 ML BAG 100 ML IVPB PRN; +PACLITAXEL IVPB ONE; +PACLITAXEL IVPB PRN; +WATER FOR INJ,STERILE 20 ML IVP PRN
[2018-10-01 11:53] VITALS: BP 121/94
[2018-10-01] MEDS: HEPARIN FLSH (PORT) 500 UN/5ML IVP PRN (12:00)
== END 2018-10-03 ==
LOC: SPU 11:30
PROVIDERS: ATTEND Internal Medicine Hematology
DX: Z51.11 Encounter for antineoplastic chemotherapy (principal); C50.412 Malignant neoplasm of upper-outer quadrant of left female breast; J06.9 Acute upper respiratory infection, unspecified; R53.83 Other fatigue; D61.1 Drug-induced aplastic anemia; R74.0 Nonspecific elevation of levels of transaminase and lactic acid dehydrogenase [LDH]; Z79.899 Other long term (current) drug therapy; G25.0 Essential tremor; E78.00 Pure hypercholesterolemia, unspecified; M79.7 Fibromyalgia; G62.0 Drug-induced polyneuropathy; T45.1X5D Adverse effect of antineoplastic and immunosuppressive drugs, subsequent encounter
CPT/HCPCS: 36415; 85025; 85027; 96367; 96375; 96413; 96415; 96523; G0463; J1100; J1200; J1642; J3490; J7040; J7050; J9267; 82040; 82247; 82310; 82374; 82435; 82565; 82947; 84075; 84132; 84155; 84295; 84450; 84460; 84520; 99212; S0028

== ENCOUNTER 2018-11-29 08:41 | Outpatient (RCR) | payer MEDICARE ==
--- NOTE | 2018-09-07 13:10 | ONCOLOGY FOLLOW UP NOTE ---
EVENT DATE: September 07, 2018 CHIEF COMPLAINT/REASON FOR VISIT Known history of stage 2 breast carcinoma. Patient completing chemotherapy and is here to sign a consent form for external beam radiation therapy and review the treatment details and side effects and therapeutic goals. Update record on chemotherapy tolerance. ONCOLOGY HISTORY 1. Diagnosis of invasive ductal carcinoma of the left breast in the upper outer quadrant, requiring lobectomy and sentinel lymph node procedure on February 25, 2018. 2. Tumor size estimated at 2.0 x 2.0 x 2.0 cm. Close but negative margins at 3 mm. Tumor is metastatic to 2 of 5 lymph nodes. Tumor was ER positive at 97%, DE negative and HER2 1+. Malignancy is grade 2. Stage is T2 N1a M0 3. Patient has now completed four cycles of AC chemotherapy and is completing her 12th cycles of Taxol-based chemotherapy this week. INTERVAL HISTORY/HISTORY OF PRESENT ILLNESS Patient was seen accompanied by her . I first met her back in April 2018. She was a pleasant 73-year old female who was recently diagnosed with locally advanced left sided breast carcinoma in the upper outer quadrant with spread to the left axillary lymph nodes. Patient did well after surgery. Induration has significantly regressed and she denies any persistent breast pain. She denies any persistent bone pain or headaches. Patient does state she gets fatigued during the chemotherapy program. She also has experienced neuropathy in the soles of her feet bilaterally. She denies any blood count issues. Patient will receive her last course of chemotherapy on of this week. MEDICATIONS 1. Hydrochlorothiazide. 2. Levothyroxine. 3. Pepcid. 4. Colace. 5. Pravastatin. PAST MEDICAL HISTORY 1. Essential tremor. 2. Hypercholesterolemia. 3. Breast cancer with history listed above. 4. Hypothyroidism. SURGICAL HISTORY 1. Left breast lumpectomy and axillary lymph node sampling. 2. Left knee replacement. 3. Prior hysterectomy. FAMILY HISTORY Notable for mother with breast cancer at age 68. SOCIAL HISTORY Previous smoking one pack per day for 16 years. She has quit smoking for the last 50 years. ALLERGIES PHENAZOPYRIDINE. REVIEW OF SYSTEMS Essentially negative. Denies any new or persistent headaches. She does have expected alopecia at this juncture and wears a wig. No significant respiratory or cardiac symptoms. No GI complaints. PHYSICAL EXAMINATION GENERAL: Pleasant, 73-year-old female, medium-slightly large build. VITAL SIGNS: Weight 232, blood pressure 129/89, pulse 78, O2 sat 97% on room air. LUNGS: Clear bilaterally. CARDIOVASCULAR: Heart sounds regular ABDOMEN: Soft. No gross organomegaly. BREASTS: Large breasts bilaterally. No suspicious mass on right breast exam. Left breast examination reveals well-healed curvilinear incision with some minor induration inferior to the scar. No suspicious lesions identified. No significant tenderness. Rate the cosmetic outcome as very good to excellent. NEUROLOGIC: Intact motor function. Hypersensitivity to light touch over the feet. IMPRESSION This is a 73-year old lady who was diagnosed with left sided invasive ductal carcinoma of the breast in 2017, requiring initial surgery in February. She has undergone appropriate surgery today. She is now completing her chemotherapy program under the direction of [facility]. I briefly outlined the radiation therapy program options to the patient and her spouse. I detailed potential acute side effects. Most common side effects are temporary erythema reaction and some minor fatigue. PLAN I would like to delay starting the radiation course for approximately four weeks. Typically, our window is three to six weeks following the end of chemotherapy course. She will undergo targeting CT simulation to cover the left breast as well as the higher axilla and infraclavicular lymph nodes in the next 7-14 days. All questions were answered to the patient's satisfaction over a one hour follow up appointment and consent obtained today to go forward. Thank you for the referral. KATHERINE
[~2018-11-29 08:41] MED LIST changes: -DEXAMETHASONE INJ 100 MG/10 ML IVP PRN; +HEPARIN FLSH (PORT) 500 UN/5ML IVP PRN; -NS 0.9% IVPB ONE; -NS 0.9% IVPB PRN; +NS(*) 0.9% 250 ML BAG 250 ML IVPB PRN; -PACLITAXEL IVPB ONE; -PACLITAXEL IVPB PRN; +SILV20CR2 TP
[2018-11-29 08:54] VITALS: BP 137/95
[2018-11-29 09:10] LABS: PLATELET COUNT, AUTOMATED 152 K/uL (150-450)
--- NOTE | 2018-11-29 12:06 | RADIOLOGY IMAGING REPORT ---
FACILITY: [facility] PATIENT NAME: Karin Stovall : 1945 MR: [id number] V: [id number] EXAM DATE: ORDERING PHYSICIAN: JULY NGUYEN TECHNOLOGIST: Location: [facility] Patient: Karin Stovall : 1945 Visit/Account:[id number] Date of Sevice: 11/29/2018 DEXA Scan Clinical history: Screening. Comparison: None available. LUMBAR SPINE: The bone mineral density (BMD) measured from L1-L4 correlates with a Z-score -0.6 and a T-score of -1 .1 which is osteopenia as defined by the World Health Organization. The corresponding risk of fractu re in the lumbar spine is 2-3 times increased compared with a young adult reference population. HIP: Bone mineral density (BMD) measured in the Left total hip region correlates with a Z-score -1.2 and a T-score of -2 which is osteopenia as defined by the World Health Organization. The corresponding ri sk of fracture in the hip is 4 times increased compared with a young adult reference population. T score left femoral neck -1.7 Bone mineral density (BMD) measured in the Femoral Neck region measures 0.798 g/cm2. Impression: 1. Lumbar spine: Osteopenia. 2. Left Hip: Osteopenia. 3. Femoral Neck: Bone Mineral Density is 0.798 g/cm2 The next DEXA scan of this patient should include the following sites: L1-L4 and the left hip. FRAX? WHO Fracture Risk Assessment Tool link: <http://www.shef.ac.uk/FRAX/tool.jsp?[email or web address]> PLEASE NOTE: 1) The World Health Organization defines low BMD as follows: T-score Normal > -1 Osteopenia < -1 and > -2.5 Osteoporosis < -2.5 without fractures Established osteoporosis < -2.5 with fractures 2) In general, you may wish to consider: Diagnosis Treatment Follow-up DEXA Normal BMD Prevention 2-3 years Osteopenia Prevention/therapy 1-2 years Osteoporosis Therapy Yearly 3) Fracture risk estimated from the T-score is more accurate for vertebral fractures (often spontane ous) than for hip fractures. Report Dictated By: Norma Chaudhary MD at 11/29/2018 12:02 PM Report E-Signed By: Norma Chaudhary MD at 11/29/2018 12:03 PM ELENAN:GUERO
[2018-12-02] MEDS ORDERED: CHOL10005 PO (09:38)
[2018-12-02] MEDS ORDERED: ANAS1TAB12 PO (09:38)
[2018-12-02] MEDS ORDERED: RIS35 PO (09:38)
== END 2018-12-05 ==
LOC: SPU 08:41
PROVIDERS: ATTEND Radiology Radiation Oncology
DX: Z51.0 Encounter for antineoplastic radiation therapy (principal); C50.912 Malignant neoplasm of unspecified site of left female breast; M85.89 Other specified disorders of bone density and structure, multiple sites
CPT/HCPCS: 36592; 77080; 77280; 77290; 77295; 77300; 77334; 77336; 77412; 82306; 85025; 86300; 96523; G0463; J1642; 82040; 82247; 82310; 82374; 82435; 82565; 82947; 84075; 84132; 84155; 84295; 84450; 84460; 84520; 99212

== ENCOUNTER → 2018-12-28 | Outpatient (CLI) | payer MEDICARE ==
[~2018-12-28] MED LIST changes: -ALTEPLASE RECOMB 2 MG VIAL IVP PRN; +ANAS1TAB12 PO; +CHOL10005 PO; -DEXTROSE 5%(*) 100 ML BAG 100 ML IVPB PRN; -HEPARIN FLSH (PORT) 500 UN/5ML IVP PRN; -LIDOCAINE/SOD BICARB 8.4% SYR ID PRN; -NS(*) 0.9% 100 ML BAG 100 ML IVPB PRN; -NS(*) 0.9% 250 ML BAG 250 ML IVPB PRN; +RIS35 PO; -WATER FOR INJ,STERILE 20 ML IVP PRN
--- NOTE | 2018-12-28 13:03 | RADIOLOGY IMAGING REPORT ---
FACILITY: [facility] - [place] PATIENT NAME: Karin Stovall : 1945 MR: [id number] V: [id number] EXAM DATE: ORDERING PHYSICIAN: BISI RONQUILLO TECHNOLOGIST: Location: [facility] [place] Patient: Karin Stovall : 1945 Visit/Account:[id number] Date of Sevice: 12/28/2018 Single view chest with left ribs INDICATION: Left-sided rib pain, fall two weeks ago.. COMPARISON: X-ray examination chest July 30, 2018 FINDINGS: Stable appearance right IJ port, catheter tip mid aspect superior vena cava. Lungs are chaim ar. No effusion or pneumothorax. Dedicated oblique images of the left ribs are submitted. BB is seen lateral to the anterior aspect o f the left 10th rib. Adjacent ribs are without definitive fracture. IMPRESSION: 1. No acute cardiopulmonary process. 2. No acute osseous abnormality of the left ribs or evidence of pneumothorax. Report Dictated By: Joey Bazzi MD at 12/28/2018 12:57 PM Report E-Signed By: Joey Bazzi MD at 12/28/2018 12:59 PM WSN:[id number]
== END ==
LOC: RAD 11:00
PROVIDERS: ATTEND Family Medicine
DX: R07.89 Other chest pain (principal)
CPT/HCPCS: 71100

== ENCOUNTER 2018-12-29 10:55 | Outpatient (RCR) | payer MEDICARE ==
[2018-10-28 14:37] VITALS: BP 135/67
[2018-10-28 15:01] LABS: PLATELET COUNT, AUTOMATED 165 K/uL (150-450)
[2018-10-29 13:21] VITALS: BP 138/89
--- NOTE | 2018-10-29 21:10 | [facility] ONCOLOGY NOTE ---
EVENT DATE: October 29, 2018 DIAGNOSIS Stage IIA (pT1c pN1a cM0) left breast infiltrating ductal carcinoma. CHIEF COMPLAINT Patient is here today for followup of her left breast cancer. ONCOLOGY HISTORY Patient is a 73-year-old female who felt a lump in her upper-outer quadrant, so the patient had an ultrasound of the left breast done on February 03, 2018, which showed a left breast heterogeneous solid mass at 2 o'clock, measuring 1.7 x 1.6 x 2.2 cm, suspicious for malignancy. Patient had ultrasound-guided biopsy of the left breast mass done on February 15, 2018, and the pathology came back positive for infiltrating ductal carcinoma grade 2. She ended by having left breast lumpectomy and sentinel lymph node biopsy done on March 03, 2018, and the pathology came back positive for 2 x 2 x 2 cm left breast infiltrating ductal carcinoma grade 2/3 with positive lymphovascular invasion. Two out of five sentinel lymph nodes came back positive for metastasis. One of the lymph nodes had an area of macro metastasis measured about 3 mm, ER positive 97.1%, LA negative, HER2/josiah was 1+, not expressed, while Ki-67 showed high proliferation at 34.9%. So, the patient's tumor was staged as a stage IIA (pT1c pN1a, cM0). 2D echocardiogram showed left ventricular ejection fraction normal at 70%. The patient started treatment with dose-dense AC with Adriamycin and cyclophosphamide on April 09, 2018. Patient completed four courses of dose- dense AC on May 21, 2018. She started adjuvant Taxol therapy on June 14, 2018. Patient started radiation therapy on the October, and she is going to finish her radiation on the November. HISTORY OF PRESENT ILLNESS Patient is here today for followup of her breast cancer. She is doing fine currently. She started radiation therapy on the October. She is tolerating treatment well so far. She is complaining of musculoskeletal pain from her fibromyalgia. She has also some residual neuropathy in her feet from her chemotherapy. She is weak, tired, and fatigued. PAST MEDICAL HISTORY 1. Essential tremors. 2. Hypercholesterolemia. PAST SURGICAL HISTORY 1. Left knee replacement. 2. Abdominal surgery for resection of about 15 tumors from the abdomen which were benign. 3. Hysterectomy in 1985. 4. Two wrist surgeries. FAMILY HISTORY Mother with stage IV breast cancer diagnosed at age 68 years of age. One sister had also stage IV breast cancer diagnosed at age of 61. SOCIAL HISTORY Patient is with four children. 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 She quit smoking in 1973 after one pack a day for 16 years. Occasionally drinks alcohol, but no abuse of illicit drugs. CURRENT MEDICATIONS 1. Colace 100 mg twice daily. 2. Cyclobenzaprine 10 mg three times daily. 3. Levothyroxine 100 mcg daily. 4. Calcium carbonate/vitamin D3 600/200 tablet daily. 5. Hydrochlorothiazide 25 mg daily. 6. Famotidine 20 mg daily. 7. Pravastatin 20 mg daily. 8. Vitamin B12 2500 mcg tablet daily. 9. Percocet 5/325 tablet p.r.n. every six hours. 10. Ibuprofen 800 mg every eight hours. 11. Multivitamin one tablet daily. ALLERGIES FENAZOPIRIDINA, cannot remember the reaction. REVIEW OF SYSTEMS CONSTITUTIONAL: No appetite or weight change. No fever, chills, or sweating. No recent infection. HEENT: Ears: No tinnitus or hearing problem. Nose: No nasal discharge or epistaxis. Throat: No sore throat or mouth ulcers. Eyes: No diplopia or visual changes. RESPIRATORY: No shortness of breath. No cough, expectoration, or hemoptysis. CARDIOVASCULAR: No chest pain, orthopnea, or paroxysmal nocturnal dyspnea (PND). No edema. No palpitations. GASTROINTESTINAL: No nausea or vomiting. She has occasional diarrhea. No constipation. No change in bowel movements. No heartburn or swallowing difficulties. No abdominal pain. No jaundice. No hematemesis, melena, or rectal bleeding. GENITOURINARY: No hematuria or dysuria. MUSCULOSKELETAL: She has fibromyalgia with pain in her musculoskeletal system. NEUROLOGICAL: She has residual neuropathy in her feet. No headaches or convulsions. HEMATOLOGIC/LYMPHATIC: No bleeding or easy bruising. She is weak, tired, and fatigued. No enlarged lymph nodes. SKIN: No skin rash or lumps. PSYCHIATRIC: No anxiety or depression. PHYSICAL EXAMINATION GENERAL: Looks stable. Well developed, well nourished, and in no acute distress. VITAL SIGNS: Blood pressure 138/89, pulse 100 per minute, respirations 16 per minute, temperature 98.7, pulse ox 94% on room air. HEENT: Head: Atraumatic. No sinus tenderness to palpation. Eyes: No icterus or conjunctivitis. Mouth and Throat: No oral thrush or mucositis. NECK: Supple. No cervical or supraclavicular lymphadenopathy. LUNGS: Clear to auscultation and percussion bilaterally. HEART: Regular rate and rhythm. No gallops, murmurs, clicks, or rubs. ABDOMEN: Soft and lax. No tenderness. No hepatosplenomegaly. No masses. EXTREMITIES: No cyanosis, clubbing, or edema. LYMPHATICS: No peripheral lymphadenopathy. NEUROLOGICAL: Conscious, alert, and oriented times three. No focal motor or sensory deficits. PSYCHIATRIC: Mood and affect appear normal. SKIN: No skin rash, bruise, or purpuric eruption. DIAGNOSTIC DATA CBC showed white count 4.5, hemoglobin 13.9, hematocrit 41.7, platelets 165,000. Chem panel totally normal except sodium 136, blood sugar 122, AST 48, ALT 69. Other parameters are normal. ASSESSMENT 1. Stage IIA (pT1c pN1a cM0) left breast infiltrating ductal carcinoma. Two out of five lymph nodes came back positive for metastasis, one with macro metastasis measuring 0.3 cm. Patient had lumpectomy and sentinel lymph node biopsy done March 03, 2018. ER positive 95.9%, LA negative, HER2/josiah negative (1+ by immunohistochemistry), and Ki-67 was high at 34.9%. 2D echocardiogram showed normal left ventricular ejection fraction at 70%. The patient received four cycles of dose-dense AC with Adriamycin and cyclophosphamide between April 09, 2018, through May 21, 2018. She completed 12 weekly courses of Taxol, received between the June through the September. Patient started her adjuvant radiation therapy on the October, and she is going to finish her adjuvant radiation therapy on the November. I am planning to start her adjuvant hormonal therapy after she will finish her radiation therapy. I am planning to see her on the November with CBC, chemistry panel, CA27.29, vitamin D level, and DEXA scan. 2. Chemotherapy-induced anemia, recovered. Current hemoglobin is 13.9 g/dL. 3. Transaminitis, most probably due to fatty liver with mild elevation of her liver enzymes currently. PLAN 1. Continue followup. 2. Patient to return on the November with CBC, chem panel, vitamin D level, CA27.29, and DEXA scan. 3. Patient to contact us for any new concerns or complaints. MTDD
[2018-12-02 09:04] VITALS: BP 136/89
--- NOTE | 2018-12-02 09:59 | [facility] ONCOLOGY NOTE ---
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 CHIEF COMPLAINT Patient is here today for followup of her left breast cancer. ONCOLOGY HISTORY Patient is a 73-year-old female who felt a lump in her upper-outer quadrant, so the patient had an ultrasound of the left breast done on February 03, 2018, which showed a left breast heterogeneous solid mass at 2 o'clock, measuring 1.7 x 1.6 x 2.2 cm, suspicious for malignancy. Patient had ultrasound-guided biopsy of the left breast mass done on February 15, 2018, and the pathology came back positive for infiltrating ductal carcinoma grade 2. She ended by having left breast lumpectomy and sentinel lymph node biopsy done on March 03, 2018, and the pathology came back positive for 2 x 2 x 2 cm left breast infiltrating ductal carcinoma grade 2/3 with positive lymphovascular invasion. Two out of five sentinel lymph nodes came back positive for metastasis. One of the lymph nodes had an area of macro metastasis measured about 3 mm, ER positive 97.1%, UT negative, HER2/josiah was 1+, not expressed, while Ki-67 showed high proliferation at 34.9%. So, the patient's tumor was staged as a stage IIA (pT1c pN1a, cM0). 2D echocardiogram showed left ventricular ejection fraction normal at 70%. The patient started treatment with dose-dense AC with Adriamycin and cyclophosphamide on April 09, 2018. Patient completed four courses of dose- dense AC on May 21, 2018. She started adjuvant Taxol therapy on June 14, 2018. Patient started radiation therapy on October 12, 2018, and she is going to finish her radiation on November 25, 2018. Patient started adjuvant hormonal therapy with Arimidex 1 mg daily on December 02, 2018. HISTORY OF PRESENT ILLNESS Patient is here today for followup of her breast cancer. She is doing fine currently. She complains of occasional shortness of breath and occasional diarrhea. She has generalized joint pain sometimes. She has neuropathy in her feet with tingling and numbness. PAST MEDICAL HISTORY 1. Essential tremors. 2. Hypercholesterolemia. PAST SURGICAL HISTORY 1. Left knee replacement. 2. Abdominal surgery for resection of about 15 tumors from the abdomen which were benign. 3. Hysterectomy in 1985. 4. Two wrist surgeries. FAMILY HISTORY Mother with stage IV breast cancer diagnosed at age 68 years of age. One sister had also stage IV breast cancer diagnosed at age of 61. SOCIAL HISTORY Patient is with four children. 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 She quit smoking in 1973 after one pack a day for 16 years. Occasionally drinks alcohol, but no abuse of illicit drugs. CURRENT MEDICATIONS 1. Colace 100 mg twice daily. 2. Cyclobenzaprine 10 mg three times daily. 3. Levothyroxine 100 mcg daily. 4. Calcium carbonate/vitamin D3 600/200 tablet daily. 5. Hydrochlorothiazide 25 mg daily. 6. Famotidine 20 mg daily. 7. Pravastatin 20 mg daily. 8. Vitamin B12 2500 mcg tablet daily. 9. Percocet 5/325 tablet p.r.n. every six hours. 10. Ibuprofen 800 mg every eight hours. 11. Multivitamin one tablet daily. 12. Arimidex 1 mg daily. 13. Vitamin D 3000 units daily. 14. Actonel 35 mg weekly. ALLERGIES FENAZOPIRIDINA, cannot remember the reaction. REVIEW OF SYSTEMS CONSTITUTIONAL: No appetite or weight change. No fever, chills, or sweating. No recent infection. HEENT: Ears: No tinnitus or hearing problem. Nose: No nasal discharge or epistaxis. Throat: No sore throat or mouth ulcers. Eyes: No diplopia or visual changes. RESPIRATORY: She has occasional shortness of breath. CARDIOVASCULAR: No chest pain, orthopnea, or paroxysmal nocturnal dyspnea (PND). No edema. No palpitations. GASTROINTESTINAL: She has occasional diarrhea. GENITOURINARY: No hematuria or dysuria. MUSCULOSKELETAL: She has generalized joint pain sometime. NEUROLOGICAL: She has tingling and numbness in her feet. HEMATOLOGIC/LYMPHATIC: No bleeding or easy bruising. She is weak, tired, and fatigued. No enlarged lymph nodes. SKIN: No skin rash or lumps. PSYCHIATRIC: No anxiety or depression. PHYSICAL EXAMINATION GENERAL: Looks stable. Well developed, well nourished, and in no acute distress. VITAL SIGNS: Blood pressure 136/89, pulse 70 per minute, respirations 16 per minute, temperature 98.1, pulse ox 90% on room air. HEENT: Head: Atraumatic. No sinus tenderness to palpation. Eyes: No icterus or conjunctivitis. Mouth and Throat: No oral thrush or mucositis. NECK: Supple. No cervical or supraclavicular lymphadenopathy. LUNGS: Clear to auscultation and percussion bilaterally. HEART: Regular rate and rhythm. No gallops, murmurs, clicks, or rubs. ABDOMEN: Soft and lax. No tenderness. No hepatosplenomegaly. No masses. EXTREMITIES: No cyanosis, clubbing, or edema. LYMPHATICS: No peripheral lymphadenopathy. NEUROLOGICAL: Conscious, alert, and oriented times three. No focal motor or sensory deficits. PSYCHIATRIC: Mood and affect appear normal. SKIN: No skin rash, bruise, or purpuric eruption. DIAGNOSTIC DATA CBC showed white count 4,000, hemoglobin 13.9, hematocrit 40.2, platelets 152,000. Chem panel totally normal except blood sugar 118 and AST 41. 25- vitamin D level was 23, which is insufficient. CA27.29 is normal at 19.7. DEXA scan done on November 29, 2018, showed osteopenia of the lumbar spine with T-score -1.1 and in the left hip with T-score -2. ASSESSMENT 1. Stage IIA (pT1c pN1a cM0) left breast infiltrating ductal carcinoma. Two out of five lymph nodes came back positive for metastasis, one with macrometastasis measuring 0.3 cm. Patient had lumpectomy and sentinel lymph node biopsy done March 03, 2018. ER positive 95.9%, UT negative, HER2/josiah negative (1+ by immunohistochemistry), and Ki-67 was high at 34.9%. 2D echocardiogram showed normal left ventricular ejection fraction at 70%. The patient received four cycles of dose-dense AC with Adriamycin and cyclophosphamide between April 09, 2018, through May 21, 2018. She completed 12 weekly courses of Taxol, received between June 14, 2018, through September 10, 2018. Patient after that received radiation therapy between October 12, 2018, through November 25, 2018. I am planning to start her adjuvant hormonal therapy with Arimidex 1 mg daily for a total of 5 years. Patient is doing fine currently. I am planning to see her again in 3 months with CBC, chem panel, vitamin D level and CA27.29. 2. Chemotherapy-induced anemia, recovered completely. Her current hemoglobin is 13.9 g/dL, which is stable. 3. Transaminitis, most probably due to fatty liver. Her current AST is 41. Other parameters are normal. We will continue to monitor her liver enzymes with each visit. 4. Osteopenia of the lumbar spine with T-score -1.1 and in the left hip T-score -2 by her DEXA scan done on November 29, 2018. I am planning to supplement her with vitamin D and start Actonel 35 mg weekly. 5. Vitamin D insufficiency. Current level is 23. I am planning to put her on vitamin D 3,000 units daily. PLAN 1. Continue followup. 2. Arimidex 1 mg daily. 3. Vitamin D 3,000 international units daily. 4. Actonel 35 mg weekly. 5. Patient to return in 3 months with CBC, chem panel, CA27.29 and vitamin D level. 6. Patient to contact us for any new concerns or complaints. BHARGAVD
[~2018-12-29 10:55] MED LIST changes: +ALTEPLASE RECOMB 2 MG VIAL IVP PRN; +DEXTROSE 5%(*) 100 ML BAG 100 ML IVPB PRN; +HEPARIN FLSH (PORT) 500 UN/5ML IVP PRN; +LIDOCAINE/SOD BICARB 8.4% SYR ID PRN; +NS(*) 0.9% 100 ML BAG 100 ML IVPB PRN; +NS(*) 0.9% 500 ML BAG 500 ML IV PRN; +WATER FOR INJ,STERILE 20 ML IVP PRN
[2018-12-29 11:31] VITALS: BP 146/85
== END 2019-01-26 ==
LOC: SPU 10:55
PROVIDERS: ATTEND Internal Medicine Hematology
DX: C50.912 Malignant neoplasm of unspecified site of left female breast (principal); Z17.0 Estrogen receptor positive status [ER+]; D64.81 Anemia due to antineoplastic chemotherapy; R74.0 Nonspecific elevation of levels of transaminase and lactic acid dehydrogenase [LDH]; Z87.891 Personal history of nicotine dependence
CPT/HCPCS: 36592; 85025; 86300; 96523; G0463; J1642; 82040; 82247; 82310; 82374; 82435; 82565; 82947; 84075; 84132; 84155; 84295; 84450; 84460; 84520; 99212

== ENCOUNTER → 2019-02-02 | Outpatient (CLI) | payer MEDICARE ==
[~2019-02-02] MED LIST changes: -ALTEPLASE RECOMB 2 MG VIAL IVP PRN; -DEXTROSE 5%(*) 100 ML BAG 100 ML IVPB PRN; -HEPARIN FLSH (PORT) 500 UN/5ML IVP PRN; -LIDOCAINE/SOD BICARB 8.4% SYR ID PRN; -NS(*) 0.9% 100 ML BAG 100 ML IVPB PRN; -NS(*) 0.9% 500 ML BAG 500 ML IV PRN; -WATER FOR INJ,STERILE 20 ML IVP PRN
--- NOTE | 2019-02-03 14:53 | RADIOLOGY IMAGING REPORT ---
FACILITY: [facility] [place] PATIENT NAME: HERMELINDO ROYAL : [id number] MR: [id number] V: [id number] EXAM DATE: [id number] ORDERING PHYSICIAN: JULY NGUYEN TECHNOLOGIST: Chantal Parekh PROCEDURE:BILATERAL DIAGNOSTIC DIGITAL MAMMOGRAM WITH CAD REASON FOR STUDY: Follow up/personal history of Left breast cancer FAMILY HISTORY OF BREAST CANCER: Mother, sister & self BREAST PROCEDURES/TREATMENTS: Malignant Ultrasound guided breast biopsy followed by chemotherapy & radiation therapy. COMPARISON STUDIES: 02/03/18, 03/04/16, 02/25/16, 02/08/15 MAMMOGRAM VIEWS OBTAINED: Bilateral 2D & 3D full field CC & MLO projections & a 2D Left XCC full field view BREAST DENSITY: There are scattered areas of fibroglandular density throughout the breasts. MAMMOGRAM FINDINGS: There is skin thickening over the Left breast consistent with history of radiation therapy. Surgical clips are also seen in the upper outer quadrant of the Left breast in the posterior depth. There is a slightly irregular area of increased density in the upper outer quadrant of the Left breast in the location of previous lumpectomy. This may simply represent post surgical scarring. A 6 month follow up diagnostic Left mammogram is recommended unless clinical findings warrant more immediate attention. The parenchymal pattern throughout the Right breast has remained stable. DIAGNOSTIC CATEGORY 3--PROBABLY BENIGN FINDING. RECOMMENDATIONS: SIX MONTH FOLLOW-UP DIAGNOSTIC MAMMOGRAM: LEFT BREAST. IMPRESSION: BIRADS 3: Probably benign finding. A 6 month follow up diagnostic Left mammogram recommended as described above. Dictated by: Norma Chaudhary M.D. on 02/02/2019 at 16:08 Transcribed by: CARI on 02/03/2019 at 10:38 Approved by: Norma Chaudhary M.D. on 02/03/2019 at 14:50 [facility]
== END ==
LOC: MAMO 01:31
PROVIDERS: ATTEND Radiology Radiation Oncology
DX: C50.912 Malignant neoplasm of unspecified site of left female breast (principal); Z17.0 Estrogen receptor positive status [ER+]; Z80.3 Family history of malignant neoplasm of breast
CPT/HCPCS: 77062; 77066